=== PATIENT | male | born 1995 | race Hispanic/Latino ===

== ENCOUNTER 2020-03-01 13:05 | Inpatient (IN) | payer OTHER, MEDICARE ==
--- NOTE | 2020-03-01 16:54 | Emergency Department Report ---
- General Chief Complaint: Nausea/Vomiting/Diarrhea Stated Complaint: POSSIBLE COVID Time Seen by Provider: 03/01/20 16:34 Source: patient Mode of arrival: Ambulatory Limitations: No Limitations - History of Present Illness Initial Comments: 25-year-old male, history of asthma, depression, hyperlipidemia, intellectual delay, presents to ED with symptoms of COVID-19. Patient is currently a patient at [facility] on a voluntary admission. Patient tested positive for COVID-19 at that facility on yesterday. He reports having fever, cough, shortness of breath, body aches, diarrhea. He denies loss of smell or taste. MD Complaint: fever, cough -: days(s) (3) Severity: moderate Consistency: constant Improves With: nothing Worsens With: nothing Associated Symptoms: fever, myalgias, sore throat, cough, shortness of breath, diarrhea. denies: abdominal pain, nausea, vomiting - Related Data Allergies Allergy/AdvReac Type Severity Reaction Status Date / Time latex Allergy Unknown Verified 03/01/20 15:53 ceftriaxone [From Rocephin] AdvReac Unknown Verified 03/01/20 18:01 soy AdvReac Unknown Verified 03/01/20 15:53 ED Review of Systems ROS: Stated complaint: POSSIBLE COVID Other details as noted in HPI Comment: All other systems reviewed and negative Constitutional: fever ENT: throat pain Respiratory: cough, shortness of breath Gastrointestinal: diarrhea. denies: nausea, vomiting Musculoskeletal: myalgia ED Past Medical Hx - Past Medical History Hx Diabetes: Yes - Surgical History Past Surgical History?: No - Social History Smoking Status: Never Smoker Substance Use Type: None ED Physical Exam - General Limitations: No Limitations General appearance: alert, in no apparent distress - Head Head exam: Present: atraumatic, normocephalic - Eye Eye exam: Present: normal appearance, EOMI - ENT ENT exam: Present: mucous membranes moist - Neck Neck exam: Present: normal inspection - Respiratory Respiratory exam: Present: normal lung sounds bilaterally. Absent: respiratory distress - Cardiovascular Cardiovascular Exam: Present: regular rate, normal rhythm - GI/Abdominal GI/Abdominal exam: Present: soft. Absent: distended, tenderness - Extremities Exam Extremities exam: Present: normal inspection - Back Exam Back exam: Present: normal inspection - Neurological Exam Neurological exam: Present: alert, oriented X3 - Psychiatric Psychiatric exam: Present: normal affect, normal mood - Skin Skin exam: Present: warm, dry, intact, normal color ED Course Vital Signs 03/01/20 03/01/20 03/01/20 16:02 17:48 19:04 Temperature 99.0 F Pulse Rate 92 H 104 H Pulse Rate [ Bilateral] Respiratory 18 18 Rate Respiratory Rate [Bilateral ] Blood Pressure Blood Pressure 159/69 [Left] O2 Sat by Pulse 96 90 92 Oximetry 03/01/20 03/01/20 03/01/20 21:13 21:39 22:00 Temperature Pulse Rate 80 Pulse Rate [ 80 Bilateral] Respiratory 20 Rate Respiratory 22 Rate [Bilateral ] Blood Pressure 129/56 Blood Pressure [Left] O2 Sat by Pulse 90 96 Oximetry 03/01/20 03/01/20 03/01/20 22:11 22:21 22:31 Temperature Pulse Rate 94 H 89 88 Pulse Rate [ Bilateral] Respiratory 16 12 14 Rate Respiratory Rate [Bilateral ] Blood Pressure 129/56 129/56 129/56 Blood Pressure [Left] O2 Sat by Pulse 96 95 95 Oximetry 03/01/20 03/01/20 03/01/20 22:41 22:51 23:19 Temperature 98.3 F Pulse Rate 88 81 85 Pulse Rate [ Bilateral] Respiratory 12 20 17 Rate Respiratory Rate [Bilateral ] Blood Pressure 129/56 129/56 150/65 Blood Pressure [Left] O2 Sat by Pulse 94 95 93 Oximetry - Reevaluation(s) Reevaluation #1: 03/01/20 17:45 Ambulation, O2 sats dropped to 90% on room air. ED Medical Decision Making - Lab Data Result diagrams: 03/01/20 17:20 03/01/20 17:20 - Radiology Data Radiology results: report reviewed, image reviewed - Medical Decision Making 25-year-old male, recently tested positive for COVID-19, presents to ED with difficulty breathing. O2 sats 90% on room air. Chest x-ray shows right upper lobe opacity. Blood cultures drawn, patient given Levaquin and Decadron. He will be admitted by hospitalist, Dr. Rodriguez, for further management. - Differential Diagnosis COVID-19, pneumonia Critical care attestation.: If time is entered above; I have spent that time in minutes in the direct care of this critically ill patient, excluding procedure time. ED Disposition Clinical Impression: COVID-19, Pneumonia, Hypoxia Disposition: DC-09 OP ADMIT IP TO THIS HOSP Is pt being admited?: Yes Condition: Stable Time of Disposition: 19:03
--- NOTE | 2020-03-01 17:25 | XRay Report ---
CHEST 1 VIEW 03/01/2020 4:17 PM INDICATION / CLINICAL INFORMATION: cough, sob. COMPARISON: None available. FINDINGS: SUPPORT DEVICES: None. HEART / MEDIASTINUM: No significant abnormality. LUNGS / PLEURA: There is focal parenchymal opacity in the right upper lung. No pneumothorax. ADDITIONAL FINDINGS: No significant additional findings. IMPRESSION: 1. Focal right upper lung parenchymal opacity likely reflecting developing pneumonia. Signer Name: Titi Bennett MD Signed: 03/01/2020 5:21 PM Workstation Name: [id number]
[2020-03-01] MEDS ORDERED: cefTRIAXone/NS 1 GM/50 ML 1 GM/50 ML BAG IV ONE (17:45)
[2020-03-01] MEDS ORDERED: AZITHROMYCIN 250 MG TAB PO ONE (17:45)
[2020-03-01] MEDS ORDERED: DEXAMETHASONE 4 MG TAB PO ONE (17:46)
[2020-03-01 17:48] LABS: Basophils % (Auto) 0.7 % (0.0-1.8); Eosinophils # (Auto) 0.1 K/mm3 (0.0-0.4); Eosinophils % (Auto) 1.9 % (0.0-4.3); Hematocrit 34.3 % (35.5-45.6); Hemoglobin 11.1 gm/dl (11.8-15.2); Lymphocytes % (Auto) 37.8 % (13.4-35.0); Mean Corpuscular HGB Conc 32 % (32-34); Mean Corpuscular Volume 80 fl (84-94); Monocytes # (Auto) 0.2 K/mm3 (0.0-0.8); Monocytes % (Auto) 7.3 % (0.0-7.3); Platelet Count 218 K/mm3 (140-440); Red Blood Count 4.29 M/mm3 (3.65-5.03); Red Cell Distribution Width 16.9 % (13.2-15.2)
[2020-03-01] MEDS ORDERED: levoFLOXacin 750 MG TAB PO ONE (17:53)
[2020-03-01 17:59] LABS: INR 0.92 (0.87-1.13)
[2020-03-01 18:00] LABS: Partial Thromboplastin Time 30.3 Sec. (24.2-36.6)
[2020-03-01 18:04] LABS: Alanine Aminotransferase 57 units/L (7-56); Albumin 4.2 g/dL (3.9-5); BUN/Creatinine Ratio 14; Blood Urea Nitrogen 11 mg/dL (9-20); Calcium 8.8 mg/dL (8.4-10.2); Hemolysis Index 1
[2020-03-01 18:13] LABS: Bilirubin,Direct < 0.2 mg/dL (0-0.2)
--- NOTE | 2020-03-01 19:13 | History and Physical Report ---
History of Present Illness Chief complaint: I feel sick History of present illness: 25 YO Male who is currently an inpatient at [facility] with Depression, Asthma, HLD, Developmental Delay presents to ED for evaluation. Patient reports "feeling 6" over the past 2 days. Patient states that he has experienced fever, dry cough, shortness of breath, body aches, malaise, nausea, multiple loose stools. Patient underwent a coronavirus test on yesterday and was found to be COVID-19 positive. Patient has experienced persistent symptoms over the same timeframe. EMS was notified and upon arrival the patient was found to be in distress and subsequently transported to [facility] for further care and evaluation of the aforementioned symptoms. The patient was seen and evaluated in the emergency department. All lab and imaging studies reviewed. The patient was found to have a pulse oximetry of 87% with exertion which is consistent with acute hypoxemic respiratory failure. The patient underwent chest x-ray and was found to have pneumonia. The patient was admitted to medical floor and initiated on pneumonia protocol as well as coronavirus protocol. Infectious disease service consulted. Patient denies chills, chest pain, palpitation, skin rash or recent ill contacts. No prior admission for review. No medication listed at time of admission for reconciliation. Past History Past Medical History: hyperlipidemia, other (See HPI) Past Surgical History: No surgical history Social history: single. denies: smoking, alcohol abuse, prescription drug abuse Family history: hypertension Medications and Allergies Allergies Allergy/AdvReac Type Severity Reaction Status Date / Time latex Allergy Unknown Verified 03/01/20 15:53 ceftriaxone [From Rocephin] AdvReac Unknown Verified 03/01/20 18:01 soy AdvReac Unknown Verified 03/01/20 15:53 Review of Systems Constitutional: fever, anorexia, fatigue, weakness, malaise, no weight loss Ears, nose, mouth and throat: no ear pain, no ear discharge, no tinnitis, no decreased hearing, no nose pain Cardiovascular: no orthopnea, no palpitations, no rapid/irregular heart beat, no edema, no syncope Respiratory: cough, shortness of breath, no cough with sputum, no excessive sputum Gastrointestinal: nausea, diarrhea, no abdominal pain, no vomiting, no const ipation Genitourinary Male: no hematuria, no flank pain, no discharge, no urinary frequency, no urinary hesitancy Rectal: no pain, no incontinence, no bleeding Musculoskeletal: no neck stiffness, no neck pain, no shooting arm pain, no arm numbness/tingling, no low back pain Integumentary: no rash, no pruritis, no redness, no sores, no wounds Neurological: no transient paralysis, no paralysis, no weakness, no parathesias, no numbness, no tingling, no seizures Psychiatric: no anxiety, no memory loss, no change in sleep habits, no sleep disturbances, no insomnia, no hypersomnia, no change in libido Endocrine: no cold intolerance, no heat intolerance, no polyphagia, no excessive thirst, no polydipsia, no nocturia, no excessive sweating Hematologic/Lymphatic: no easy bruising, no easy bleeding, no lymphadenopathy, no lymphedema Allergic/Immunologic: no urticaria, no allergic rhinitis, no persistent infections, no anaphylaxis Exam - Constitutional Vitals: Temp Pulse Resp BP Pulse Ox 99.0 F 104 H 18 159/69 92 03/01/20 16:02 03/01/20 17:48 03/01/20 19:04 03/01/20 16:02 03/01/20 19:04 General appearance: Present: mild distress - EENT Eyes: Present: PERRL ENT: hearing intact, clear oral mucosa - Neck Neck: Present: supple, normal ROM - Respiratory Respiratory effort: labored, accessory muscle use Respiratory: bilateral: diminished, rhonchi - Cardiovascular Heart Sounds: Present: S1 & S2. Absent: rub, click - Extremities Extremities: pulses symmetrical, No edema Peripheral Pulses: within normal limits - Abdominal General gastrointestinal: Present: soft, non-tender, non-distended, normal bowel sounds Male genitourinary: Present: normal - Integumentary Integumentary: Present: clear, warm, dry - Musculoskeletal Musculoskeletal: gait normal, strength equal bilaterally - Psychiatric Psychiatric: cooperative - Neurologic Neurologic: CNII-XII intact, moves all extremities Results - Labs CBC & Chem 7: 03/01/20 17:20 03/01/20 17:20 Labs: Abnormal lab results 03/01/20 03/01/20 03/01/20 Range/Units 17:20 17:20 17:20 WBC 2.6 L (4.5-11.0) K/mm3 Hgb 11.1 L (11.8-15.2) gm/dl Hct 34.3 L (35.5-45.6) % MCV 80 L (84-94) fl MCH 26 L (28-32) pg RDW 16.9 H (13.2-15.2) % Lymph % (Auto) 37.8 H (13.4-35.0) % Lymph # (Auto) 1.0 L (1.2-5.4) K/mm3 Seg Neutrophils # 1.4 L (1.8-7.7) K/mm3 D-Dimer 236.88 H (0-234) ng/mlDDU AST 47 H (5-40) units/L ALT 57 H (7-56) units/L Lactate Dehydrogenase (91-180) units/L 03/01/20 03/01/20 Range/Units 17:20 17:20 WBC (4.5-11.0) K/mm3 Hgb (11.8-15.2) gm/dl Hct (35.5-45.6) % MCV (84-94) fl MCH (28-32) pg RDW (13.2-15.2) % Lymph % (Auto) (13.4-35.0) % Lymph # (Auto) (1.2-5.4) K/mm3 Seg Neutrophils # (1.8-7.7) K/mm3 D-Dimer 274.02 H (0-234) ng/mlDDU AST (5-40) units/L ALT (7-56) units/L Lactate Dehydrogenase 202 H (91-180) units/L Assessment and Plan - Patient Problems (1) Acute hypoxemic respiratory failure Current Visit: Yes Status: Acute Plan to address problem: Chest X ray, supplemental oxygen, nebulizer therapy, NIPPV as clinically indicated, (2) Coronavirus infection Current Visit: Yes Status: Acute Plan to address problem: Covid 19 Protocol: Coronavirus PCR, supplemental oxygen, pulse oximetry, noninvasive positive pressure ventilation as clinically indicated, IV antibiotic therapy, IV steroid therapy, prophylactic anticoagulation. Prone listening while in bed (3) Pneumonia Current Visit: Yes Status: Acute Plan to address problem: Pneumonia Protocol: CBC, BMP, Supplemental oxygen, nebulizer therapy, pulse oximetry, IV antibiotic therapy, steroid therapy, (4) Depression Current Visit: Yes Status: Acute Qualifiers: Major depression episode severity: unspecified Plan to address problem: Mental health consult placed, continue medical management. (5) Cognitive developmental delay Current Visit: Yes Status: Acute Plan to address problem: Supportive care, chronic. (6) DVT prophylaxis Current Visit: Yes Status: Acute Plan to address problem: SCD to bilateral lower extremities while in bed, prophylactic anticoagulation
[2020-03-01] MEDS ORDERED: ALBUTEROL 2.5 MG/3 ML NEBU IH PRN (19:17)
[2020-03-01] MEDS ORDERED: ONDANSETRON 4 MG/2 ML INJ IV PRN (19:17)
[2020-03-01] MEDS ORDERED: ACETAMINOPHEN 325 MG TAB PO PRN (19:17)
[2020-03-01] MEDS: AZITHROMYCIN 500 MG in SODIUM CHLORIDE 0.9% 250ML 250 ML IV SCH (20:40)
[2020-03-01] MEDS: HEPARIN 5,000 UNIT/1 ML VIAL SUB-Q SCH (21:43)
[2020-03-01] MEDS: methylPREDNISolone Sod Succinate 40 MG/1 ML INJ IV SCH (21:50)
[2020-03-01] MEDS: FAMOTIDINE 10 MG TAB PO SCH (21:51)
[2020-03-02] MEDS: FAMOTIDINE 10 MG TAB PO SCH ×3 (00:36→21:01)
[2020-03-02] MEDS: methylPREDNISolone Sod Succinate 40 MG/1 ML INJ IV SCH ×3 (06:11→21:03)
[2020-03-02 06:20] LABS: Hematocrit 35.2 % (35.5-45.6); Hemoglobin 11.4 gm/dl (11.8-15.2); Mean Corpuscular HGB Conc 33 % (32-34); Mean Corpuscular Volume 79 fl (84-94); Platelet Count 259 K/mm3 (140-440); Red Blood Count 4.44 M/mm3 (3.65-5.03); Red Cell Distribution Width 17.1 % (13.2-15.2)
[2020-03-02 06:39] LABS: Blood Urea Nitrogen 11 mg/dL (9-20); Calcium 9.1 mg/dL (8.4-10.2); Hemolysis Index 0
[2020-03-02 06:42] LABS: BUN/Creatinine Ratio 18
[2020-03-02 07:47] LABS: Total Cells Counted 100
[2020-03-02 07:48] LABS: Hypochromasia 1+; Ovalocytes Few; Platelet Estimate Consistent w Auto
[2020-03-02] MEDS ORDERED: FLU VACC QUAD 2020-2021 (6 months +)/PF 60 0.5 ML SYRINGE IM ONE (12:00)
[2020-03-02] MEDS: HEPARIN 5,000 UNIT/1 ML VIAL SUB-Q SCH ×2 (12:56→21:01)
--- NOTE | 2020-03-02 14:53 | Consultation ---
History of Present Illness - Reason for Consult Consult date: 03/02/20 COVID-19 PUI Requesting physician: TANK JUAREZ - History of Present Illness The patient is a 25-year-old male with asthma, depression, hyperlipidemia, mental developmental delay was admitted to the hospital with symptoms of fever, cough, shortness of breath along with diarrhea. Upon additional evaluation, he was noted to be afebrile, was borderline hypoxic requiring supplemental oxygen. Infectious diseases was consulted to evaluate for COVID-19. Labs showed leukopenia, mild transaminitis. Procalcitonin is normal. Review of Systems: reviewed in the chart, unable to obtain, minimize risk of transmission Past History Past Medical History: hyperlipidemia, other (See HPI) Past Surgical History: No surgical history Social history: single. denies: smoking, alcohol abuse, prescription drug abuse Family history: hypertension Medications and Allergies Allergies Allergy/AdvReac Type Severity Reaction Status Date / Time latex Allergy Unknown Verified 03/01/20 15:53 ceftriaxone [From Rocephin] AdvReac Unknown Verified 03/01/20 18:01 soy AdvReac Unknown Verified 03/01/20 15:53 Active Meds: Active Medications Acetaminophen (Acetaminophen 325 Mg Tab) 650 mg PO Q4H PRN PRN Reason: Pain MILD(1-3)/Fever >100.5/RAYGOZA Albuterol (Albuterol 2.5 Mg/3 Ml Nebu) 2.5 mg IH Q4HRT PRN PRN Reason: Shortness Of Breath Last Admin: 03/01/20 21:38 Dose: 2.5 mg Documented by: Famotidine (Famotidine 10 Mg Tab) 10 mg PO BID [facility] Last Admin: 03/02/20 12:56 Dose: 10 mg Documented by: Heparin Sodium (Porcine) (Heparin 5,000 Unit/1 Ml Vial) 5,000 unit SUB-Q Q12HR [facility] Last Admin: 03/02/20 12:56 Dose: 5,000 unit Documented by: Azithromycin 500 mg/ Sodium (Chloride) 250 mls @ 250 mls/hr IV Q24H [facility]; Protocol Last Admin: 03/01/20 20:40 Dose: 250 mls/hr Documented by: Methylprednisolone Sodium Succinate (Methylprednisolone Sod Succinate 40 Mg/1 Ml Inj) 40 mg IV Q8H [facility] Last Admin: 03/02/20 06:11 Dose: 40 mg Documented by: Ondansetron HCl (Ondansetron 4 Mg/2 Ml Inj) 4 mg IV Q8H PRN PRN Reason: Nausea And Vomiting Sodium Chloride (Sodium Chloride 0.9% 10 Ml Flush Syringe) 10 ml IV BID [facility] Last Admin: 03/01/20 21:51 Dose: 10 ml Documented by: Sodium Chloride (Sodium Chloride 0.9% 10 Ml Flush Syringe) 10 ml IV PRN PRN PRN Reason: LINE FLUSH Physical Examination - Physical Exam Narrative exam: Physical Exam (reviewed in chart to minimize risk of transmission) Constitutional: deferred Head, Ears, Nose: deferred Eyes: deferred Neck: deferred Oral: deferred Cardiovascular: deferred Respiratory: deferred GI: deferred Musculoskeletal: deferred Skin: deferred Hem/Lymphatic: deferred Psych: deferred Neurological: deferred - Constitutional Vitals: Vital Signs Temp Pulse Resp BP Pulse Ox 98.2 F 68 22 122/51 94 03/02/20 11:12 03/02/20 11:12 03/02/20 11:12 03/02/20 11:12 03/02/20 11:12 Temperature -Last 24 Hours Temperature 98.2 F Temperature 97.9 F Temperature 98.3 F Temperature 99.0 F Results - Labs CBC & Chem 7: 03/02/20 05:31 03/02/20 05:31 Labs: Abnormal lab results 03/01/20 03/01/20 03/01/20 Range/Units 17:20 17:20 17:20 WBC 2.6 L (4.5-11.0) K/mm3 Hgb 11.1 L (11.8-15.2) gm/dl Hct 34.3 L (35.5-45.6) % MCV 80 L (84-94) fl MCH 26 L (28-32) pg RDW 16.9 H (13.2-15.2) % Lymph % (Auto) 37.8 H (13.4-35.0) % Lymph # (Auto) 1.0 L (1.2-5.4) K/mm3 Seg Neuts % (Manual) (40.0-70.0) % Seg Neutrophils # 1.4 L (1.8-7.7) K/mm3 Seg Neutrophils # Man (1.8-7.7) K/mm3 Lymphocytes # (Manual) (1.2-5.4) K/mm3 D-Dimer 236.88 H (0-234) ng/mlDDU Creatinine (0.8-1.3) mg/dL Glucose (75-100) mg/dL AST 47 H (5-40) units/L ALT 57 H (7-56) units/L Lactate Dehydrogenase (91-180) units/L 03/01/20 03/01/20 03/02/20 Range/Units 17:20 17:20 05:31 WBC 1.7 L* (4.5-11.0) K/mm3 Hgb 11.4 L (11.8-15.2) gm/dl Hct 35.2 L (35.5-45.6) % MCV 79 L (84-94) fl MCH 26 L (28-32) pg RDW 17.1 H (13.2-15.2) % Lymph % (Auto) (13.4-35.0) % Lymph # (Auto) (1.2-5.4) K/mm3 Seg Neuts % (Manual) 74.0 H (40.0-70.0) % Seg Neutrophils # (1.8-7.7) K/mm3 Seg Neutrophils # Man 1.3 L (1.8-7.7) K/mm3 Lymphocytes # (Manual) 0.4 L (1.2-5.4) K/mm3 D-Dimer 274.02 H (0-234) ng/mlDDU Creatinine (0.8-1.3) mg/dL Glucose (75-100) mg/dL AST (5-40) units/L ALT (7-56) units/L Lactate Dehydrogenase 202 H (91-180) units/L 03/02/20 Range/Units 05:31 WBC (4.5-11.0) K/mm3 Hgb (11.8-15.2) gm/dl Hct (35.5-45.6) % MCV (84-94) fl MCH (28-32) pg RDW (13.2-15.2) % Lymph % (Auto) (13.4-35.0) % Lymph # (Auto) (1.2-5.4) K/mm3 Seg Neuts % (Manual) (40.0-70.0) % Seg Neutrophils # (1.8-7.7) K/mm3 Seg Neutrophils # Man (1.8-7.7) K/mm3 Lymphocytes # (Manual) (1.2-5.4) K/mm3 D-Dimer (0-234) ng/mlDDU Creatinine 0.6 L (0.8-1.3) mg/dL Glucose 134 H (75-100) mg/dL AST (5-40) units/L ALT (7-56) units/L Lactate Dehydrogenase (91-180) units/L - Imaging and Cardiology Chest x-ray: report reviewed, image reviewed (R pneumonia) Assessment and Plan Cultures: SARS CoV2 PCR: Pending A/P: 25-year-old male with asthma, depression, hyperlipidemia, mental developmental delay was admitted to the hospital with symptoms of fever, cough, shortness of breath along with diarrhea: #Right-sided pneumonia: seen on CXR. Procalcitonin is low. #Acute/mild hypoxia #Asthma exacerbation: On steroids #Leukopenia: Possibly from COVID-19. Monitor Recs: On steroids for asthma exacerbation Follow-up COVID-19 PCR, if positive, would start on IV remdesivir Procalcitonin is low, ceftriaxone discontinued Monitor WBC Duy Pretty MD, FACP [facility] O: [phone] F: [phone]
[2020-03-02] MEDS: AZITHROMYCIN 500 MG in SODIUM CHLORIDE 0.9% 250ML 250 ML IV SCH (20:38)
[2020-03-03] MEDS: methylPREDNISolone Sod Succinate 40 MG/1 ML INJ IV SCH ×3 (06:04→21:44)
--- NOTE | 2020-03-03 08:34 | Progress Note ---
Assessment and Plan - Patient Problems (1) Acute hypoxemic respiratory failure Current Visit: Yes Status: Acute Plan to address problem: Cont Oxygen supplement (2) Pneumonia due to COVID-19 virus Current Visit: Yes Status: Acute Plan to address problem: ID consult appreciated coronavirus PCR positive Per ID start remdesivir if positive (3) Leukopenia Current Visit: Yes Status: Acute Plan to address problem: Secondary to Covid (4) Transaminitis Current Visit: Yes Status: Acute Plan to address problem: Secondary to forward (5) DVT prophylaxis Current Visit: Yes Status: Acute Plan to address problem: On Lovenox and GI prophylaxis Subjective Date of service: 03/02/20 Principal diagnosis: Covid Pneumonia Interval history: 25 YO Male who is currently an inpatient at [facility] with Depression, Asthma, HLD, Developmental Delay presents to ED for evaluation. Patient reports "feeling 6" over the past 2 days. Patient states that he has experienced fever, dry cough, shortness of breath, body aches, malaise, nausea, multiple loose stools. Patient underwent a coronavirus test on yesterday and was found to be COVID-19 positive. Patient has experienced persistent symptoms over the same timeframe. EMS was notified and upon arrival the patient was found to be in distress and subsequently transported to [facility] for further care and evaluation of the aforementioned symptoms. The patient was seen and evaluated in the emergency department. All lab and imaging studies reviewed. The patient was found to have a pulse oximetry of 87% with exertion which is consistent with acute hypoxemic respiratory failure. The patient underwent chest x-ray and was found to have pneumonia. The patient was admitted to medical floor and initiated on pneumonia protocol as well as coronavirus protocol. Infectious disease service consulted. Patient denies chills, chest pain, palpitation, skin rash or recent ill contacts. No prior admission for review. No medication listed at time of admission for reconciliation. 03/02/20 Doing well On 3 liters NC o2 Smith virys positive Objective - Constitutional Vitals: Vital Signs - 12hr 03/02/20 03/02/20 03/03/20 21:29 22:52 05:54 Temperature 97.0 F L 97.8 F Pulse Rate 58 L 52 L Respiratory 16 16 Rate Blood Pressure 90/28 118/42 O2 Sat by Pulse 98 91 95 Oximetry General appearance: Present: no acute distress, well-nourished - EENT Eyes: PERRL, EOM intact ENT: hearing intact, clear oral mucosa Ears: bilateral: normal - Neck Neck: supple, normal ROM - Respiratory Respiratory effort: normal Respiratory: bilateral: CTA, rhonchi - Breasts Breasts: normal - Cardiovascular Heart rate: 78 Rhythm: regular Heart Sounds: Present: S1 & S2. Absent: gallop, rub Extremities: pulses intact, No edema, normal color, Full ROM - Gastrointestinal General gastrointestinal: Present: soft, non-tender, non-distended, normal bowel sounds - Genitourinary Male genitourinary: normal - Integumentary Integumentary: clear, warm, dry - Musculoskeletal Musculoskeletal: 1, strength equal bilaterally - Neurologic Neurologic: moves all extremities - Psychiatric Psychiatric: memory intact, appropriate mood/affect, intact judgment & insight - Labs CBC & Chem 7: 03/02/20 05:31 03/02/20 05:31 Labs: Abnormal lab results 03/02/20 Range/Units 10:00 Coronavirus (PCR) Positive A (Negative)
[2020-03-03] MEDS ORDERED: REMDESIVIR 100 MG VIAL IV ONE (08:42)
[2020-03-03] MEDS ORDERED: REMDESIVIR 200 MG in SODIUM CHLORIDE 0.9% 250ML 250 ML IV ONE (08:42)
[2020-03-03] MEDS ORDERED: SODIUM CHLORIDE 0.9% 50 ML IVPB IV ONE (10:00)
[2020-03-03] MEDS: FAMOTIDINE 10 MG TAB PO SCH ×2 (10:32→21:44)
[2020-03-03] MEDS: HEPARIN 5,000 UNIT/1 ML VIAL SUB-Q SCH ×2 (10:33→21:44)
--- NOTE | 2020-03-03 13:30 | Progress Note ---
Assessment and Plan Assessment and plan: 25 YO Male who is currently an inpatient at [facility] with Depression, Asthma, HLD, Developmental Delay presents to ED for evaluation. Patient reports "feeling 6" over the past 2 days. Patient states that he has experienced fever, dry cough, shortness of breath, body aches, malaise, nausea, multiple loose stools. Patient underwent a coronavirus test on yesterday and was found to be COVID-19 positive. Patient has experienced persistent symptoms over the same timeframe. EMS was notified and upon arrival the patient was found to be in distress and subsequently transported to [facility] for further care and evaluation of the aforementioned symptoms. The patient was seen and evaluated in the [facility] department. All lab and imaging studies reviewed. The patient was found to have a pulse oximetry of 87% with exertion which is consistent with acute hypoxemic respiratory failure. The patient underwent chest x-ray and was found to have pneumonia. The patient was admitted to medical floor and initiated on pneumonia protocol as well as coronavirus protocol. Infectious disease service consulted. Patient denies chills, chest pain, palpitation, skin rash or recent ill contacts. No prior admission for review. No medication listed at time of admission for reconciliation. 03/02/20 Doing well On 3 liters [place] o2 Smith virys positive 03/03: Continue oxygen therapy at this time. We will add some vitamins supplementation. A dose of Lasix today. Patient noted to have leukopenia we will continue to monitor closely. Remdesivir was started. Patient requesting for his phone from [facility] and staff to help locate. (1) Acute hypoxemic respiratory failure Current Visit: Yes Status: Acute Plan to address problem: Cont Oxygen supplement (2) Pneumonia due to COVID-19 virus Current Visit: Yes Status: Acute Plan to address problem: ID consult appreciated coronavirus PCR positive Per ID start remdesivir if positive (3) Leukopenia Current Visit: Yes Status: Acute Plan to address problem: Secondary to Covid (4) Transaminitis Current Visit: Yes Status: Acute Plan to address problem: Secondary to forward (5) DVT prophylaxis Current Visit: Yes Status: Acute Plan to address problem: On Lovenox and GI prophylaxis History Interval history: Patient seen and examined resting with mild distress secondary to Covid pneumonia Hospitalist Physical - Physical exam Narrative exam: VITAL SIGNS: Reviewed. GENERAL: The patient appears normally developed, Vital signs as documented. HEAD: No signs of head trauma. EYES: Pupils are equal. Extraocular motions intact. EARS: Hearing grossly intact. MOUTH: Oropharynx is normal. NECK: No adenopathy, no JVD. CHEST: Chest with diminished breath sounds bilaterally. No wheezes, rales, or rhonchi. CARDIAC: Regular rate and rhythm. S1 and S2, without murmurs, gallops, or rubs. VASCULAR: No Edema. Peripheral pulses normal and equal in all extremities. ABDOMEN: Soft, non tender and non distended. No rebound or guarding, and no masses palpated. Bowel Sounds normal. MUSCULOSKELETAL: Good range of motion of all major joints. Extremities without clubbing, cyanosis or edema. NEUROLOGIC EXAM: Alert and oriented x 3 No focal sensory or strength deficit s. Speech normal. Follows commands. PSYCHIATRIC: Mood normal. SKIN: detail exam as documented in skin assessment - Constitutional Vitals: Temp Pulse Resp BP Pulse Ox 97.8 F 57 L 20 111/56 93 03/03/20 11:08 03/03/20 11:08 03/03/20 11:08 03/03/20 11:08 03/03/20 11:08 General appearance: Present: no acute distress, well-nourished Results - Labs CBC & Chem 7: 03/02/20 05:31 03/02/20 05:31 Labs: Laboratory Last Values WBC 1.7 K/mm3 (4.5-11.0) L* 03/02/20 05:31 RBC 4.44 M/mm3 (3.65-5.03) 03/02/20 05:31 Hgb 11.4 gm/dl (11.8-15.2) L 03/02/20 05:31 Hct 35.2 % (35.5-45.6) L 03/02/20 05:31 MCV 79 fl (84-94) L 03/02/20 05:31 MCH 26 pg (28-32) L 03/02/20 05:31 MCHC 33 % (32-34) 03/02/20 05:31 RDW 17.1 % (13.2-15.2) H 03/02/20 05:31 Plt Count 259 K/mm3 (140-440) 03/02/20 05:31 Lymph % (Auto) 37.8 % (13.4-35.0) H 03/01/20 17:20 Martin % (Auto) 7.3 % (0.0-7.3) 03/01/20 17:20 Eos % (Auto) 1.9 % (0.0-4.3) 03/01/20 17:20 Baso % (Auto) 0.7 % (0.0-1.8) 03/01/20 17:20 Lymph # (Auto) 1.0 K/mm3 (1.2-5.4) L 03/01/20 17:20 Martin # (Auto) 0.2 K/mm3 (0.0-0.8) 03/01/20 17:20 Eos # (Auto) 0.1 K/mm3 (0.0-0.4) 03/01/20 17:20 Baso # (Auto) 0.0 K/mm3 (0.0-0.1) 03/01/20 17:20 Add Manual Diff Complete 03/02/20 05:31 Total Counted 100 03/02/20 05:31 Seg Neutrophils % 52.3 % (40.0-70.0) 03/01/20 17:20 Seg Neuts % (Manual) 74.0 % (40.0-70.0) H 03/02/20 05:31 Lymphocytes % (Manual) 23.0 % (13.4-35.0) 03/02/20 05:31 Monocytes % (Manual) 3.0 % (0.0-7.3) 03/02/20 05:31 Nucleated RBC % Not Reportable 03/02/20 05:31 Seg Neutrophils # 1.4 K/mm3 (1.8-7.7) L 03/01/20 17:20 Seg Neutrophils # Man 1.3 K/mm3 (1.8-7.7) L 03/02/20 05:31 Band Neutrophils # 0.0 K/mm3 03/02/20 05:31 Lymphocytes # (Manual) 0.4 K/mm3 (1.2-5.4) L 03/02/20 05:31 Abs React Lymphs (Man) 0.0 K/mm3 03/02/20 05:31 Monocytes # (Manual) 0.1 K/mm3 (0.0-0.8) 03/02/20 05:31 Eosinophils # (Manual) 0.0 K/mm3 (0.0-0.4) 03/02/20 05:31 Basophils # (Manual) 0.0 K/mm3 (0.0-0.1) 03/02/20 05:31 Metamyelocytes # 0.0 K/mm3 03/02/20 05:31 Myelocytes # 0.0 K/mm3 03/02/20 05:31 Promyelocytes # 0.0 K/mm3 03/02/20 05:31 Blast Cells # 0.0 K/mm3 03/02/20 05:31 WBC Morphology Not Reportable 03/02/20 05:31 Hypersegmented Neuts Not Reportable 03/02/20 05:31 Hyposegmented Neuts Not Reportable 03/02/20 05:31 Hypogranular Neuts Not Reportable 03/02/20 05:31 Smudge Cells Not Reportable 03/02/20 05:31 Toxic Granulation Not Reportable 03/02/20 05:31 Toxic Vacuolation Not Reportable 03/02/20 05:31 Dohle Bodies Not Reportable 03/02/20 05:31 Pelger-Huet Anomaly Not Reportable 03/02/20 05:31 Gerardo Rods Not Reportable 03/02/20 05:31 Platelet Estimate Consistent w auto 03/02/20 05:31 Clumped Platelets Not Reportable 03/02/20 05:31 Plt Clumps, EDTA Not Reportable 03/02/20 05:31 Large Platelets Not Reportable 03/02/20 05:31 Giant Platelets Not Reportable 03/02/20 05:31 Platelet Satelliting Not Reportable 03/02/20 05:31 Plt Morphology Comment Not Reportable 03/02/20 05:31 RBC Morphology Not Reportable 03/02/20 05:31 Dimorphic RBCs Not Reportable 03/02/20 05:31 Polychromasia Not Reportable 03/02/20 05:31 Hypochromasia 1+ 03/02/20 05:31 Poikilocytosis Not Reportable 03/02/20 05:31 Anisocytosis Not Reportable 03/02/20 05:31 Microcytosis Not Reportable 03/02/20 05:31 Macrocytosis Not Reportable 03/02/20 05:31 Spherocytes Not Reportable 03/02/20 05:31 Pappenheimer Bodies Not Reportable 03/02/20 05:31 Sickle Cells Not Reportable 03/02/20 05:31 Target Cells Not Reportable 03/02/20 05:31 Tear Drop Cells Not Reportable 03/02/20 05:31 Ovalocytes Few 03/02/20 05:31 Helmet Cells Not Reportable 03/02/20 05:31 [place] Bodies Not Reportable 03/02/20 05:31 [place] Rings Not Reportable 03/02/20 05:31 [place] Cells Not Reportable 03/02/20 05:31 Bite Cells Not Reportable 03/02/20 05:31 Crenated Cell Not Reportable 03/02/20 05:31 Elliptocytes Not Reportable 03/02/20 05:31 Acanthocytes (Spur) Not Reportable 03/02/20 05:31 Rouleaux Not Reportable 03/02/20 05:31 Hemoglobin C Crystals Not Reportable 03/02/20 05:31 Schistocytes Not Reportable 03/02/20 05:31 Malaria parasites Not Reportable 03/02/20 05:31 Julio Bodies Not Reportable 03/02/20 05:31 Hem Pathologist Commnt No 03/02/20 05:31 PT 12.2 Sec. (12.2-14.9) 03/01/20 17:20 INR 0.92 (0.87-1.13) 03/01/20 17:20 APTT 30.3 Sec. (24.2-36.6) 03/01/20 17:20 D-Dimer 236.88 ng/mlDDU (0-234) H 03/01/20 17:20 D-Dimer 274.02 ng/mlDDU (0-234) H 03/01/20 17:20 Sodium 140 mmol/L (137-145) 03/02/20 05:31 Potassium 4.2 mmol/L (3.6-5.0) 03/02/20 05:31 Chloride 105.4 mmol/L (98-107) 03/02/20 05:31 Carbon Dioxide 24 mmol/L (22-30) 03/02/20 05:31 Anion Gap 15 mmol/L 03/02/20 05:31 BUN 11 mg/dL (9-20) 03/02/20 05:31 Creatinine 0.6 mg/dL (0.8-1.3) L 03/02/20 05:31 Estimated GFR > 60 ml/min 03/02/20 05:31 BUN/Creatinine Ratio 18 % 03/02/20 05:31 Glucose 134 mg/dL (75-100) H 03/02/20 05:31 Calcium 9.1 mg/dL (8.4-10.2) 03/02/20 05:31 Ferritin 42.8 ng/mL (30.0-300.0) 03/01/20 17:20 Total Bilirubin 0.20 mg/dL (0.1-1.2) 03/01/20 17:20 Direct Bilirubin < 0.2 mg/dL (0-0.2) 03/01/20 17:20 AST 47 units/L (5-40) H 03/01/20 17:20 ALT 57 units/L (7-56) H 03/01/20 17:20 Alkaline Phosphatase 66 units/L (35-129) 03/01/20 17:20 Lactate Dehydrogenase 202 units/L (91-180) H 03/01/20 17:20 C-Reactive Protein 1.00 mg/dL (0.00-1.30) 03/01/20 17:20 Total Protein 7.7 g/dL (6.3-8.2) 03/01/20 17:20 Albumin 4.2 g/dL (3.9-5) 03/01/20 17:20 Albumin/Globulin Ratio 1.2 % 03/01/20 17:20 Procalcitonin < 0.05 ng/mL (<0.15) 03/01/20 17:20 Coronavirus (PCR) Positive (Negative) A 03/02/20 10:00 Jarvis/IV: Voiding Method Toilet IV Catheter Type [Left INT / Saline Lock Antecubital] Active Medications - Current Medications Current Medications: Generic Name Dose Route Start Last Admin Trade Name Freq PRN Reason Stop Dose Admin Acetaminophen 650 mg 03/01/20 19:17 Acetaminophen 325 Mg Tab PO Q4H PRN Pain MILD(1-3)/Fever >100.5/RAYGOZA Albuterol 2.5 mg 03/01/20 19:17 03/01/20 21:38 Albuterol 2.5 Mg/3 Ml Nebu IH 2.5 mg Q4HRT PRN Administration Shortness Of Breath Famotidine 10 mg 03/01/20 22:00 03/03/20 10:32 Famotidine 10 Mg Tab PO 10 mg BID CORTEZ Administration Heparin Sodium (Porcine) 5,000 unit 03/01/20 22:00 03/03/20 10:33 Heparin 5,000 Unit/1 Ml Vial SUB-Q 5,000 unit Q12HR CORTEZ Administration Azithromycin 500 mg/ Sodium 250 mls @ 250 mls/hr 03/01/20 20:00 03/02/20 22:05 Chloride IV Infused Q24H CORTEZ Infusion Protocol REMDESIVIR 100 mg/ Sodium 250 mls @ 500 mls/hr 03/04/20 21:00 Chloride IV 03/07/20 21:29 Q24HR@2100 [facility] Methylprednisolone Sodium Succinate 40 mg 03/01/20 22:00 03/03/20 06:04 Methylprednisolone Sod Succinate 40 Mg/1 Ml Inj IV 40 mg Q8H CORTEZ Administration Ondansetron HCl 4 mg 03/01/20 19:17 Ondansetron 4 Mg/2 Ml Inj IV Q8H PRN Nausea And Vomiting Sodium Chloride 10 ml 03/01/20 22:00 03/03/20 10:33 Sodium Chloride 0.9% 10 Ml Flush Syringe IV 10 ml BID CORTEZ Administration Sodium Chloride 10 ml 03/01/20 19:17 Sodium Chloride 0.9% 10 Ml Flush Syringe IV PRN PRN LINE FLUSH Sodium Chloride 50 ml 03/04/20 21:00 Sodium Chloride 0.9% 50 Ml Ivpb IV 03/07/20 21:01 Q24HR@2100 [facility]
[2020-03-03 15:47] LABS: Basophils % (Auto) 0.1 % (0.0-1.8); Hematocrit 33.2 % (35.5-45.6); Hemoglobin 10.7 gm/dl (11.8-15.2); Lymphocytes # (Auto) 0.4 K/mm3 (1.2-5.4); Lymphocytes % (Auto) 10.1 % (13.4-35.0); Mean Corpuscular HGB Conc 32 % (32-34); Mean Corpuscular Volume 79 fl (84-94); Monocytes # (Auto) 0.2 K/mm3 (0.0-0.8); Monocytes % (Auto) 4.7 % (0.0-7.3); Platelet Count 306 K/mm3 (140-440); Red Blood Count 4.19 M/mm3 (3.65-5.03)
[2020-03-03] MEDS: ASCORBIC ACID 500 MG TAB PO SCH (21:44)
[2020-03-03] MEDS: AZITHROMYCIN 500 MG in SODIUM CHLORIDE 0.9% 250ML 250 ML IV SCH (21:44)
[2020-03-04] MEDS: methylPREDNISolone Sod Succinate 40 MG/1 ML INJ IV SCH ×3 (05:06→22:43)
[2020-03-04 07:01] LABS: Hematocrit 33.2 % (35.5-45.6); Hemoglobin 10.9 gm/dl (11.8-15.2); Mean Corpuscular HGB Conc 33 % (32-34); Mean Corpuscular Volume 79 fl (84-94); Platelet Count 274 K/mm3 (140-440); Red Cell Distribution Width 16.4 % (13.2-15.2)
[2020-03-04 07:32] LABS: Blood Urea Nitrogen 12 mg/dL (9-20); Calcium 8.7 mg/dL (8.4-10.2); Hemolysis Index 0
[2020-03-04 07:34] LABS: BUN/Creatinine Ratio 20
[2020-03-04] MEDS: HEPARIN 5,000 UNIT/1 ML VIAL SUB-Q SCH ×2 (09:04→22:43)
[2020-03-04] MEDS: ZINC SULFATE 220 MG CAP PO SCH (09:05)
[2020-03-04] MEDS: CHOLECALCIFEROL (VIT D3) 5,000 UNIT TAB PO SCH (09:05)
[2020-03-04] MEDS: FAMOTIDINE 10 MG TAB PO SCH ×2 (09:09→22:44)
--- NOTE | 2020-03-04 10:14 | Progress Note ---
Assessment and Plan Assessment and plan: 25 YO Male who is currently an inpatient at [facility] with Depression, Asthma, HLD, Developmental Delay presents to ED for evaluation. Patient reports "feeling 6" over the past 2 days. Patient states that he has experienced fever, dry cough, shortness of breath, body aches, malaise, nausea, multiple loose stools. Patient underwent a coronavirus test on yesterday and was found to be COVID-19 positive. Patient has experienced persistent symptoms over the same timeframe. EMS was notified and upon arrival the patient was found to be in distress and subsequently transported to [facility] for further care and evaluation of the aforementioned symptoms. The patient was seen and evaluated in the [facility] department. All lab and imaging studies reviewed. The patient was found to have a pulse oximetry of 87% with exertion which is consistent with acute hypoxemic respiratory failure. The patient underwent chest x-ray and was found to have pneumonia. The patient was admitted to medical floor and initiated on pneumonia protocol as well as coronavirus protocol. Infectious disease service consulted. Patient denies chills, chest pain, palpitation, skin rash or recent ill contacts. No prior admission for review. No medication listed at time of admission for reconciliation. 03/02/20 Doing well On 3 liters [place] o2 Smith virys positive 03/03: Continue oxygen therapy at this time. We will add some vitamins supplementation. A dose of Lasix today. Patient noted to have leukopenia we will continue to monitor closely. Remdesivir was started. Patient requesting for his phone from [facility] and staff to help locate. 03/04: Continue supportive care, Discussed with family Mica Pritchett [phone], anticipate discharge in a day or two. Per family the patient has a hx of SI/HI and was at [facility] for the same thing. She reports that this is a monthly thing and has not had an attempt. Will obtain Mental health consult. (1) Acute hypoxemic respiratory failure Current Visit: Yes Status: Acute Plan to address problem: Cont Oxygen supplement (2) Pneumonia due to COVID-19 virus Current Visit: Yes Status: Acute Plan to address problem: ID consult appreciated coronavirus PCR positive Per ID start remdesivir if positive (3) Leukopenia Current Visit: Yes Status: Acute Plan to address problem: Secondary to Covid (4) Transaminitis Current Visit: Yes Status: Acute Plan to address problem: Secondary to forward (5) DVT prophylaxis Current Visit: Yes Status: Acute Plan to address problem: On Lovenox and GI prophylaxis History Interval history: Patient seen and examined resting, reports improvement, continue current management. Discussed with patients Aunty. He denies HI or SI Hospitalist Physical - Physical exam Narrative exam: VITAL SIGNS: Reviewed. GENERAL: The patient appears normally developed, Vital signs as documented. HEAD: No signs of head trauma. EYES: Pupils are equal. Extraocular motions intact. EARS: Hearing grossly intact. MOUTH: Oropharynx is normal. NECK: No adenopathy, no JVD. CHEST: Chest with diminished breath sounds bilaterally. No wheezes, rales, or rhonchi. CARDIAC: Regular rate and rhythm. S1 and S2, without murmurs, gallops, or rubs. VASCULAR: No Edema. Peripheral pulses normal and equal in all extremities. ABDOMEN: Soft, non tender and non distended. No rebound or guarding, and no masses palpated. Bowel Sounds normal. MUSCULOSKELETAL: Good range of motion of all major joints. Extremities without clubbing, cyanosis or edema. NEUROLOGIC EXAM: Alert and oriented x 3 No focal sensory or strength deficits. Speech normal. Follows commands. PSYCHIATRIC: Mood normal. SKIN: detail exam as documented in skin assessment - Constitutional Vitals: Temp Pulse Resp BP Pulse Ox 98.1 F 61 16 126/52 94 03/03/20 21:51 03/03/20 21:51 03/04/20 02:00 03/03/20 21:51 03/04/20 08:45 General appearance: Present: no acute distress, well-nourished Results - Labs CBC & Chem 7: 03/04/20 06:01 03/04/20 06:01 Labs: Laboratory Last Values WBC 5.8 K/mm3 (4.5-11.0) 03/04/20 06:01 RBC 4.20 M/mm3 (3.65-5.03) 03/04/20 06:01 Hgb 10.9 gm/dl (11.8-15.2) L 03/04/20 06:01 Hct 33.2 % (35.5-45.6) L 03/04/20 06:01 MCV 79 fl (84-94) L 03/04/20 06:01 MCH 26 pg (28-32) L 03/04/20 06:01 MCHC 33 % (32-34) 03/04/20 06:01 RDW 16.4 % (13.2-15.2) H 03/04/20 06:01 Plt Count 274 K/mm3 (140-440) 03/04/20 06:01 Lymph % (Auto) 10.1 % (13.4-35.0) L 03/03/20 15:15 [place] % (Auto) 4.7 % (0.0-7.3) 03/03/20 15:15 Eos % (Auto) 0.0 % (0.0-4.3) 03/03/20 15:15 Baso % (Auto) 0.1 % (0.0-1.8) 03/03/20 15:15 Lymph # (Auto) 0.4 K/mm3 (1.2-5.4) L 03/03/20 15:15 [place] # (Auto) 0.2 K/mm3 (0.0-0.8) 03/03/20 15:15 Eos # (Auto) 0.0 K/mm3 (0.0-0.4) 03/03/20 15:15 Baso # (Auto) 0.0 K/mm3 (0.0-0.1) 03/03/20 15:15 Add Manual Diff Complete 03/02/20 05:31 Total Counted 100 03/02/20 05:31 Seg Neutrophils % 85.1 % (40.0-70.0) H 03/03/20 15:15 Seg Neuts % (Manual) 74.0 % (40.0-70.0) H 03/02/20 05:31 Lymphocytes % (Manual) 23.0 % (13.4-35.0) 03/02/20 05:31 Monocytes % (Manual) 3.0 % (0.0-7.3) 03/02/20 05:31 Nucleated RBC % Not Reportable 03/02/20 05:31 Seg Neutrophils # 3.6 K/mm3 (1.8-7.7) 03/03/20 15:15 Seg Neutrophils # Man 1.3 K/mm3 (1.8-7.7) L 03/02/20 05:31 Band Neutrophils # 0.0 K/mm3 03/02/20 05:31 Lymphocytes # (Manual) 0.4 K/mm3 (1.2-5.4) L 03/02/20 05:31 Abs React Lymphs (Man) 0.0 K/mm3 03/02/20 05:31 Monocytes # (Manual) 0.1 K/mm3 (0.0-0.8) 03/02/20 05:31 Eosinophils # (Manual) 0.0 K/mm3 (0.0-0.4) 03/02/20 05:31 Basophils # (Manual) 0.0 K/mm3 (0.0-0.1) 03/02/20 05:31 Metamyelocytes # 0.0 K/mm3 03/02/20 05:31 Myelocytes # 0.0 K/mm3 03/02/20 05:31 Promyelocytes # 0.0 K/mm3 03/02/20 05:31 Blast Cells # 0.0 K/mm3 03/02/20 05:31 WBC Morphology Not Reportable 03/02/20 05:31 Hypersegmented Neuts Not Reportable 03/02/20 05:31 Hyposegmented Neuts Not Reportable 03/02/20 05:31 Hypogranular Neuts Not Reportable 03/02/20 05:31 Smudge Cells Not Reportable 03/02/20 05:31 Toxic Granulation Not Reportable 03/02/20 05:31 Toxic Vacuolation Not Reportable 03/02/20 05:31 Dohle Bodies Not Reportable 03/02/20 05:31 Pelger-Huet Anomaly Not Reportable 03/02/20 05:31 Gerardo Rods Not Reportable 03/02/20 05:31 Platelet Estimate Consistent w auto 03/02/20 05:31 Clumped Platelets Not Reportable 03/02/20 05:31 Plt Clumps, EDTA Not Reportable 03/02/20 05:31 Large Platelets Not Reportable 03/02/20 05:31 Giant Platelets Not Reportable 03/02/20 05:31 Platelet Satelliting Not Reportable 03/02/20 05:31 Plt Morphology Comment Not Reportable 03/02/20 05:31 RBC Morphology Not Reportable 03/02/20 05:31 Dimorphic RBCs Not Reportable 03/02/20 05:31 Polychromasia Not Reportable 03/02/20 05:31 Hypochromasia 1+ 03/02/20 05:31 Poikilocytosis Not Reportable 03/02/20 05:31 Anisocytosis Not Reportable 03/02/20 05:31 Microcytosis Not Reportable 03/02/20 05:31 Macrocytosis Not Reportable 03/02/20 05:31 Spherocytes Not Reportable 03/02/20 05:31 Pappenheimer Bodies Not Reportable 03/02/20 05:31 Sickle Cells Not Reportable 03/02/20 05:31 Target Cells Not Reportable 03/02/20 05:31 Tear Drop Cells Not Reportable 03/02/20 05:31 Ovalocytes Few 03/02/20 05:31 Helmet Cells Not Reportable 03/02/20 05:31 [place] Bodies Not Reportable 03/02/20 05:31 [place] Rings Not Reportable 03/02/20 05:31 [place] Cells Not Reportable 03/02/20 05:31 Bite Cells Not Reportable 03/02/20 05:31 Crenated Cell Not Reportable 03/02/20 05:31 Elliptocytes Not Reportable 03/02/20 05:31 Acanthocytes (Spur) Not Reportable 03/02/20 05:31 Rouleaux Not Reportable 03/02/20 05:31 Hemoglobin C Crystals Not Reportable 03/02/20 05:31 Schistocytes Not Reportable 03/02/20 05:31 Malaria parasites Not Reportable 03/02/20 05:31 Julio Bodies Not Reportable 03/02/20 05:31 Hem Pathologist Commnt No 03/02/20 05:31 PT 12.2 Sec. (12.2-14.9) 03/01/20 17:20 INR 0.92 (0.87-1.13) 03/01/20 17:20 APTT 30.3 Sec. (24.2-36.6) 03/01/20 17:20 D-Dimer 236.88 ng/mlDDU (0-234) H 03/01/20 17:20 D-Dimer 274.02 ng/mlDDU (0-234) H 03/01/20 17:20 Sodium 144 mmol/L (137-145) 03/04/20 06:01 Potassium 3.9 mmol/L (3.6-5.0) 03/04/20 06:01 Chloride 107.5 mmol/L (98-107) H 03/04/20 06:01 Carbon Dioxide 29 mmol/L (22-30) 03/04/20 06:01 Anion Gap 11 mmol/L 03/04/20 06:01 BUN 12 mg/dL (9-20) 03/04/20 06:01 Creatinine 0.6 mg/dL (0.8-1.3) L 03/04/20 06:01 Estimated GFR > 60 ml/min 03/04/20 06:01 BUN/Creatinine Ratio 20 % 03/04/20 06:01 Glucose 133 mg/dL (75-100) H 03/04/20 06:01 Calcium 8.7 mg/dL (8.4-10.2) 03/04/20 06:01 Ferritin 42.8 ng/mL (30.0-300.0) 03/01/20 17:20 Total Bilirubin 0.20 mg/dL (0.1-1.2) 03/01/20 17:20 Direct Bilirubin < 0.2 mg/dL (0-0.2) 03/01/20 17:20 AST 47 units/L (5-40) H 03/01/20 17:20 ALT 57 units/L (7-56) H 03/01/20 17:20 Alkaline Phosphatase 66 units/L (35-129) 03/01/20 17:20 Lactate Dehydrogenase 202 units/L (91-180) H 03/01/20 17:20 C-Reactive Protein 1.00 mg/dL (0.00-1.30) 03/01/20 17:20 Total Protein 7.7 g/dL (6.3-8.2) 03/01/20 17:20 Albumin 4.2 g/dL (3.9-5) 03/01/20 17:20 Albumin/Globulin Ratio 1.2 % 03/01/20 17:20 Procalcitonin < 0.05 ng/mL (<0.15) 03/01/20 17:20 Coronavirus (PCR) Positive (Negative) A 03/02/20 10:00 Jarvis/IV: Voiding Method Toilet IV Catheter Type [Left INT / Saline Lock Antecubital] Active Medications - Current Medications Current Medications: Generic Name Dose Route Start Last Admin Trade Name Freq PRN Reason Stop Dose Admin Acetaminophen 650 mg 03/01/20 19:17 Acetaminophen 325 Mg Tab PO Q4H PRN Pain MILD(1-3)/Fever >100.5/RAYGOZA Albuterol 2.5 mg 03/01/20 19:17 03/01/20 21:38 Albuterol 2.5 Mg/3 Ml Nebu IH 2.5 mg Q4HRT PRN Administration Shortness Of Breath Ascorbic Acid 1,000 mg 03/03/20 22:00 03/03/20 21:44 Ascorbic Acid 500 Mg Tab PO 1,000 mg BID CORTEZ Administration Cholecalciferol 5,000 unit 03/04/20 10:00 03/04/20 09:05 Cholecalciferol (Vit D3) 5,000 Unit Tab PO 5,000 unit DAILY CORTEZ Administration Famotidine 10 mg 03/01/20 22:00 03/04/20 09:09 Famotidine 10 Mg Tab PO 10 mg BID CORTEZ Administration Heparin Sodium (Porcine) 5,000 unit 03/01/20 22:00 03/04/20 09:04 Heparin 5,000 Unit/1 Ml Vial SUB-Q 5,000 unit Q12HR CORTEZ Administration Azithromycin 500 mg/ Sodium 250 mls @ 250 mls/hr 03/01/20 20:00 03/03/20 21:44 Chloride IV 250 mls/hr Q24H CORTEZ Administration Protocol REMDESIVIR 100 mg/ Sodium 250 mls @ 500 mls/hr 03/04/20 21:00 Chloride IV 03/07/20 21:29 Q24HR@2100 CORTEZ Methylprednisolone Sodium Succinate 40 mg 03/01/20 22:00 03/04/20 05:06 Methylprednisolone Sod Succinate 40 Mg/1 Ml Inj IV 40 mg Q8H CORTEZ Administration Ondansetron HCl 4 mg 03/01/20 19:17 Ondansetron 4 Mg/2 Ml Inj IV Q8H PRN Nausea And Vomiting Sodium Chloride 10 ml 03/01/20 22:00 03/04/20 09:09 Sodium Chloride 0.9% 10 Ml Flush Syringe IV 10 ml BID CORTEZ Administration Sodium Chloride 10 ml 03/01/20 19:17 Sodium Chloride 0.9% 10 Ml Flush Syringe IV PRN PRN LINE FLUSH Sodium Chloride 50 ml 03/04/20 21:00 Sodium Chloride 0.9% 50 Ml Ivpb IV 03/07/20 21:01 Q24HR@2100 CORTEZ Zinc Sulfate 220 mg 03/04/20 10:00 03/04/20 09:05 Zinc Sulfate 220 Mg Cap PO 220 mg QDAY CORTEZ Administration
[2020-03-04] MEDS: ASCORBIC ACID 500 MG TAB PO SCH ×2 (10:30→22:44)
[2020-03-04] MEDS: AZITHROMYCIN 500 MG in SODIUM CHLORIDE 0.9% 250ML 250 ML IV SCH (22:44)
[2020-03-04] MEDS: SODIUM CHLORIDE 0.9% 50 ML IVPB IV SCH (22:44)
[2020-03-04] MEDS: REMDESIVIR 100 MG in SODIUM CHLORIDE 0.9% 250ML 250 ML IV SCH (22:45)
[2020-03-05] MEDS: methylPREDNISolone Sod Succinate 40 MG/1 ML INJ IV SCH ×3 (05:51→21:50)
[2020-03-05] MEDS: ASCORBIC ACID 500 MG TAB PO SCH ×2 (09:26→21:46)
[2020-03-05] MEDS: HEPARIN 5,000 UNIT/1 ML VIAL SUB-Q SCH ×2 (09:26→21:45)
[2020-03-05] MEDS: FAMOTIDINE 10 MG TAB PO SCH ×2 (09:26→21:46)
[2020-03-05] MEDS: ZINC SULFATE 220 MG CAP PO SCH (09:26)
[2020-03-05] MEDS: CHOLECALCIFEROL (VIT D3) 5,000 UNIT TAB PO SCH (09:26)
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
--- NOTE | 2020-03-05 12:04 | Progress Note ---
Assessment and Plan Assessment and plan: 25 YO Male who is currently an inpatient at [facility] with Depression, Asthma, HLD, Developmental Delay presents to ED for evaluation. Patient reports "feeling 6" over the past 2 days. Patient states that he has experienced fever, dry cough, shortness of breath, body aches, malaise, nausea, multiple loose stools. Patient underwent a coronavirus test on yesterday and was found to be COVID-19 positive. Patient has experienced persistent symptoms over the same timeframe. EMS was notified and upon arrival the patient was found to be in distress and subsequently transported to [facility] for further care and evaluation of the aforementioned symptoms. The patient was seen and evaluated in the [facility]. All lab and imaging studies reviewed. The patient was found to have a pulse oximetry of 87% with exertion which is consistent with acute hypoxemic respiratory failure. The patient underwent chest x-ray and was found to have pneumonia. The patient was admitted to medical floor and initiated on pneumonia protocol as well as coronavirus protocol. Infectious disease service consulted. Patient denies chills, chest pain, palpitation, skin rash or recent ill contacts. No prior admission for review. No medication listed at time of admission for reconciliation. 03/02/20 Doing well On 3 liters [place] o2 Smith virys positive 03/03: Continue oxygen therapy at this time. We will add some vitamins supplementation. A dose of Lasix today. Patient noted to have leukopenia we will continue to monitor closely. Remdesivir was started. Patient requesting for his phone from [facility] and staff to help locate. 03/04: Continue supportive care, Discussed with family Mica Pritchett [phone], anticipate discharge in a day or two. Per family the patient has a hx of SI/HI and was at [facility] for the same thing. She reports that this is a monthly thing and has not had an attempt. Will obtain Mental health consult. 03/05: Patient clinically improving. Continue remdesivir and steroids. Discussed with nursing staff they will check room air oxygen today in preparation for discharge within 24 to 48 hours. Psych evaluation pending. (1) Acute hypoxemic respiratory failure Current Visit: Yes Status: Acute Plan to address problem: Cont Oxygen supplement (2) Pneumonia due to COVID-19 virus Current Visit: Yes Status: Acute Plan to address problem: ID consult appreciated coronavirus PCR positive Per ID start remdesivir if positive (3) Leukopenia Current Visit: Yes Status: Acute Plan to address problem: Secondary to Covid (4) Transaminitis Current Visit: Yes Status: Acute Plan to address problem: Secondary to forward (5) DVT prophylaxis Current Visit: Yes Status: Acute Plan to address problem: On Lovenox and GI prophylaxis History Interval history: Patient seen and examined resting, reports improvement, continue current management. Awaiting psych management.. He denies HI or SI Hospitalist Physical - Physical exam Narrative exam: VITAL SIGNS: Reviewed. GENERAL: The patient appears normally developed, Vital signs as documented. HEAD: No signs of head trauma. EYES: Pupils are equal. Extraocular motions intact. EARS: Hearing grossly intact. MOUTH: Oropharynx is normal. NECK: No adenopathy, no JVD. CHEST: Chest with diminished breath sounds bilaterally. No wheezes, rales, or rhonchi. CARDIAC: Regular rate and rhythm. S1 and S2, without murmurs, gallops, or rubs. VASCULAR: No Edema. Peripheral pulses normal and equal in all extremities. ABDOMEN: Soft, non tender and non distended. No rebound or guarding, and no masses palpated. Bowel Sounds normal. MUSCULOSKELETAL: Good range of motion of all major joints. Extremities without clubbing, cyanosis or edema. NEUROLOGIC EXAM: Alert and oriented x 3 No focal sensory or strength deficits. Speech normal. Follows commands. PSYCHIATRIC: Mood normal. SKIN: detail exam as documented in skin assessment - Constitutional Vitals: Temp Pulse Resp BP Pulse Ox 97.5 F L 54 L 18 117/62 95 03/05/20 04:52 03/05/20 04:52 03/05/20 04:52 03/05/20 04:52 03/05/20 09:00 General appearance: Present: no acute distress, well-nourished Results - Labs CBC & Chem 7: 03/04/20 06:01 03/04/20 06:01 Labs: Laboratory Last Values WBC 5.8 K/mm3 (4.5-11.0) 03/04/20 06:01 RBC 4.20 M/mm3 (3.65-5.03) 03/04/20 06:01 Hgb 10.9 gm/dl (11.8-15.2) L 03/04/20 06:01 Hct 33.2 % (35.5-45.6) L 03/04/20 06:01 MCV 79 fl (84-94) L 03/04/20 06:01 MCH 26 pg (28-32) L 03/04/20 06:01 MCHC 33 % (32-34) 03/04/20 06:01 RDW 16.4 % (13.2-15.2) H 03/04/20 06:01 Plt Count 274 K/mm3 (140-440) 03/04/20 06:01 Lymph % (Auto) 10.1 % (13.4-35.0) L 03/03/20 15:15 [place] % (Auto) 4.7 % (0.0-7.3) 03/03/20 15:15 Eos % (Auto) 0.0 % (0.0-4.3) 03/03/20 15:15 Baso % (Auto) 0.1 % (0.0-1.8) 03/03/20 15:15 Lymph # (Auto) 0.4 K/mm3 (1.2-5.4) L 03/03/20 15:15 [place] # (Auto) 0.2 K/mm3 (0.0-0.8) 03/03/20 15:15 Eos # (Auto) 0.0 K/mm3 (0.0-0.4) 03/03/20 15:15 Baso # (Auto) 0.0 K/mm3 (0.0-0.1) 03/03/20 15:15 Add Manual Diff Complete 03/02/20 05:31 Total Counted 100 03/02/20 05:31 Seg Neutrophils % 85.1 % (40.0-70.0) H 03/03/20 15:15 Seg Neuts % (Manual) 74.0 % (40.0-70.0) H 03/02/20 05:31 Lymphocytes % (Manual) 23.0 % (13.4-35.0) 03/02/20 05:31 Monocytes % (Manual) 3.0 % (0.0-7.3) 03/02/20 05:31 Nucleated RBC % Not Reportable 03/02/20 05:31 Seg Neutrophils # 3.6 K/mm3 (1.8-7.7) 03/03/20 15:15 Seg Neutrophils # Man 1.3 K/mm3 (1.8-7.7) L 03/02/20 05:31 Band Neutrophils # 0.0 K/mm3 03/02/20 05:31 Lymphocytes # (Manual) 0.4 K/mm3 (1.2-5.4) L 03/02/20 05:31 Abs React Lymphs (Man) 0.0 K/mm3 03/02/20 05:31 Monocytes # (Manual) 0.1 K/mm3 (0.0-0.8) 03/02/20 05:31 Eosinophils # (Manual) 0.0 K/mm3 (0.0-0.4) 03/02/20 05:31 Basophils # (Manual) 0.0 K/mm3 (0.0-0.1) 03/02/20 05:31 Metamyelocytes # 0.0 K/mm3 03/02/20 05:31 Myelocytes # 0.0 K/mm3 03/02/20 05:31 Promyelocytes # 0.0 K/mm3 03/02/20 05:31 Blast Cells # 0.0 K/mm3 03/02/20 05:31 WBC Morphology Not Reportable 03/02/20 05:31 Hypersegmented Neuts Not Reportable 03/02/20 05:31 Hyposegmented Neuts Not Reportable 03/02/20 05:31 Hypogranular Neuts Not Reportable 03/02/20 05:31 Smudge Cells Not Reportable 03/02/20 05:31 Toxic Granulation Not Reportable 03/02/20 05:31 Toxic Vacuolation Not Reportable 03/02/20 05:31 Dohle Bodies Not Reportable 03/02/20 05:31 Pelger-Huet Anomaly Not Reportable 03/02/20 05:31 Gerardo Rods Not Reportable 03/02/20 05:31 Platelet Estimate Consistent w auto 03/02/20 05:31 Clumped Platelets Not Reportable 03/02/20 05:31 Plt Clumps, EDTA Not Reportable 03/02/20 05:31 Large Platelets Not Reportable 03/02/20 05:31 Giant Platelets Not Reportable 03/02/20 05:31 Platelet Satelliting Not Reportable 03/02/20 05:31 Plt Morphology Comment Not Reportable 03/02/20 05:31 RBC Morphology Not Reportable 03/02/20 05:31 Dimorphic RBCs Not Reportable 03/02/20 05:31 Polychromasia Not Reportable 03/02/20 05:31 Hypochromasia 1+ 03/02/20 05:31 Poikilocytosis Not Reportable 03/02/20 05:31 Anisocytosis Not Reportable 03/02/20 05:31 Microcytosis Not Reportable 03/02/20 05:31 Macrocytosis Not Reportable 03/02/20 05:31 Spherocytes Not Reportable 03/02/20 05:31 Pappenheimer Bodies Not Reportable 03/02/20 05:31 Sickle Cells Not Reportable 03/02/20 05:31 Target Cells Not Reportable 03/02/20 05:31 Tear Drop Cells Not Reportable 03/02/20 05:31 Ovalocytes Few 03/02/20 05:31 Helmet Cells Not Reportable 03/02/20 05:31 [place] Bodies Not Reportable 03/02/20 05:31 [place] Rings Not Reportable 03/02/20 05:31 [place] Cells Not Reportable 03/02/20 05:31 Bite Cells Not Reportable 03/02/20 05:31 Crenated Cell Not Reportable 03/02/20 05:31 Elliptocytes Not Reportable 03/02/20 05:31 Acanthocytes (Spur) Not Reportable 03/02/20 05:31 Rouleaux Not Reportable 03/02/20 05:31 Hemoglobin C Crystals Not Reportable 03/02/20 05:31 Schistocytes Not Reportable 03/02/20 05:31 Malaria parasites Not Reportable 03/02/20 05:31 Julio Bodies Not Reportable 03/02/20 05:31 Hem Pathologist Commnt No 03/02/20 05:31 PT 12.2 Sec. (12.2-14.9) 03/01/20 17:20 INR 0.92 (0.87-1.13) 03/01/20 17:20 APTT 30.3 Sec. (24.2-36.6) 03/01/20 17:20 D-Dimer 236.88 ng/mlDDU (0-234) H 03/01/20 17:20 D-Dimer 274.02 ng/mlDDU (0-234) H 03/01/20 17:20 Sodium 144 mmol/L (137-145) 03/04/20 06:01 Potassium 3.9 mmol/L (3.6-5.0) 03/04/20 06:01 Chloride 107.5 mmol/L (98-107) H 03/04/20 06:01 Carbon Dioxide 29 mmol/L (22-30) 03/04/20 06:01 Anion Gap 11 mmol/L 03/04/20 06:01 BUN 12 mg/dL (9-20) 03/04/20 06:01 Creatinine 0.6 mg/dL (0.8-1.3) L 03/04/20 06:01 Estimated GFR > 60 ml/min 03/04/20 06:01 BUN/Creatinine Ratio 20 % 03/04/20 06:01 Glucose 133 mg/dL (75-100) H 03/04/20 06:01 Calcium 8.7 mg/dL (8.4-10.2) 03/04/20 06:01 Ferritin 42.8 ng/mL (30.0-300.0) 03/01/20 17:20 Total Bilirubin 0.20 mg/dL (0.1-1.2) 03/01/20 17:20 Direct Bilirubin < 0.2 mg/dL (0-0.2) 03/01/20 17:20 AST 47 units/L (5-40) H 03/01/20 17:20 ALT 57 units/L (7-56) H 03/01/20 17:20 Alkaline Phosphatase 66 units/L (35-129) 03/01/20 17:20 Lactate Dehydrogenase 202 units/L (91-180) H 03/01/20 17:20 C-Reactive Protein 1.00 mg/dL (0.00-1.30) 03/01/20 17:20 Total Protein 7.7 g/dL (6.3-8.2) 03/01/20 17:20 Albumin 4.2 g/dL (3.9-5) 03/01/20 17:20 Albumin/Globulin Ratio 1.2 % 03/01/20 17:20 Procalcitonin < 0.05 ng/mL (<0.15) 03/01/20 17:20 Coronavirus (PCR) Positive (Negative) A 03/02/20 10:00 Jarvis/IV: Voiding Method Toilet IV Catheter Type [Left Forearm INT / Saline Lock ] IV Catheter Type [Left Peripheral IV Antecubital] Active Medications - Current Medications Current Medications: Generic Name Dose Route Start Last Admin Trade Name Freq PRN Reason Stop Dose Admin Acetaminophen 650 mg 03/01/20 19:17 Acetaminophen 325 Mg Tab PO Q4H PRN Pain MILD(1-3)/Fever >100.5/RAYGOZA Albuterol 2.5 mg 03/01/20 19:17 03/01/20 21:38 Albuterol 2.5 Mg/3 Ml Nebu IH 2.5 mg Q4HRT PRN Administration Shortness Of Breath Ascorbic Acid 1,000 mg 03/03/20 22:00 03/05/20 09:26 Ascorbic Acid 500 Mg Tab PO 1,000 mg BID CORTEZ Administration Cholecalciferol 5,000 unit 03/04/20 10:00 03/05/20 09:26 Cholecalciferol (Vit D3) 5,000 Unit Tab PO 5,000 unit DAILY CORTEZ Administration Famotidine 10 mg 03/01/20 22:00 03/05/20 09:26 Famotidine 10 Mg Tab PO 10 mg BID CORTEZ Administration Heparin Sodium (Porcine) 5,000 unit 03/01/20 22:00 03/05/20 09:26 Heparin 5,000 Unit/1 Ml Vial SUB-Q 5,000 unit Q12HR CORTEZ Administration Azithromycin 500 mg/ Sodium 250 mls @ 250 mls/hr 03/01/20 20:00 03/04/20 22:44 Chloride IV 250 mls/hr Q24H CORTEZ Administration Protocol REMDESIVIR 100 mg/ Sodium 250 mls @ 500 mls/hr 03/04/20 21:00 03/04/20 22:45 Chloride IV 03/07/20 21:29 500 mls/hr Q24HR@2100 CORTEZ Administration Methylprednisolone Sodium Succinate 40 mg 03/01/20 22:00 03/05/20 05:51 Methylprednisolone Sod Succinate 40 Mg/1 Ml Inj IV 40 mg Q8H CORTEZ Administration Ondansetron HCl 4 mg 03/01/20 19:17 Ondansetron 4 Mg/2 Ml Inj IV Q8H PRN Nausea And Vomiting Sodium Chloride 10 ml 03/01/20 22:00 03/05/20 09:27 Sodium Chloride 0.9% 10 Ml Flush Syringe IV 10 ml BID CORTEZ Administration Sodium Chloride 10 ml 03/01/20 19:17 Sodium Chloride 0.9% 10 Ml Flush Syringe IV PRN PRN LINE FLUSH Sodium Chloride 50 ml 03/04/20 21:00 03/04/20 22:44 Sodium Chloride 0.9% 50 Ml Ivpb IV 03/07/20 21:01 50 ml Q24HR@2100 CORTEZ Administration Zinc Sulfate 220 mg 03/04/20 10:00 03/05/20 09:26 Zinc Sulfate 220 Mg Cap PO 220 mg QDAY CORTEZ Administration
--- NOTE | 2020-03-05 15:23 | Progress Note ---
Assessment and Plan Cultures: SARS CoV2 PCR: Positive A/P: 25-year-old male with asthma, depression, hyperlipidemia, mental developmental delay was admitted to the hospital with symptoms of fever, cough, shortness of breath along with diarrhea: #COVID-19 pneumonia: Right-sided pneumonia seen on CXR. Procalcitonin is low. Markers mildly elevated. #Acute/mild hypoxia #Asthma exacerbation: On steroids #Leukopenia: Secondary to COVID-19. Improving. Recs: On steroids for asthma exacerbation Continue remdesivir D 2 of 5 Stop antibiotics, procalcitonin <0.2 Obtain 6-minute walking oxygen test tomorrow, if passes okay to discharge after tomorrow's remdesivir dose Hortensia Wright MD [facility] ([facility]) Office [phone] Subjective Date of service: 03/05/20 Principal diagnosis: Covid Pneumonia Interval history: Remains on 2 L nasal cannula, no fever. Objective - Exam Narrative Exam: Deferred to minimize COVID-19 transmission in the setting of pandemic. - Constitutional Vitals: Vital Signs Temp Pulse Resp BP Pulse Ox 97.7 F 46 L 20 107/48 94 03/05/20 11:58 03/05/20 11:58 03/05/20 11:58 03/05/20 11:58 03/05/20 12:30 Temperature -Last 24 Hours Temperature 97.7 F Temperature 97.5 F Temperature 97.7 F Temperature 98.2 F - Labs CBC & Chem 7: 03/04/20 06:01 03/04/20 06:01
[2020-03-05] MEDS: REMDESIVIR 100 MG in SODIUM CHLORIDE 0.9% 250ML 250 ML IV SCH (21:45)
[2020-03-05] MEDS: SODIUM CHLORIDE 0.9% 50 ML IVPB IV SCH (21:45)
[2020-03-06] MEDS: methylPREDNISolone Sod Succinate 40 MG/1 ML INJ IV SCH ×3 (05:21→21:20)
[2020-03-06] MEDS: HEPARIN 5,000 UNIT/1 ML VIAL SUB-Q SCH ×2 (11:28→21:20)
[2020-03-06] MEDS: ASCORBIC ACID 500 MG TAB PO SCH ×2 (11:28→21:20)
[2020-03-06] MEDS: CHOLECALCIFEROL (VIT D3) 5,000 UNIT TAB PO SCH (11:29)
[2020-03-06] MEDS: ZINC SULFATE 220 MG CAP PO SCH (11:29)
--- NOTE | 2020-03-06 15:28 | Progress Note ---
Assessment and Plan Cultures: SARS CoV2 PCR: positive A/P: 25-year-old male with asthma, depression, hyperlipidemia, mental developmental delay was admitted to the hospital with symptoms of fever, cough, shortness of breath along with diarrhea: #Right-sided pneumonia: secondary to COVID 19. Seen on CXR. Procalcitonin is low. #Acute/mild hypoxia: improving #Asthma exacerbation: On steroids #Leukopenia: likely from COVID-19, improved Recs: continue steroids, also with asthma exacerbation. Complete at least 10 days from COVID standpoint given improvement in hypoxia, will d/c Remdesivir ID will sign off. Duy Pretty MD, FACP [facility] ([facility] O: [phone] F: [phone] Subjective Date of service: 03/06/20 Principal diagnosis: Covid Pneumonia Interval history: No fever. Per RN note, "room air 93 after walking 6 min" Objective - Exam Narrative Exam: Physical Exam (reviewed in chart to minimize risk of transmission) Constitutional: deferred Head, Ears, Nose: deferred Eyes: deferred Neck: deferred Oral: deferred Cardiovascular: deferred Respiratory: deferred GI: deferred Musculoskeletal: deferred Skin: deferred Hem/Lymphatic: deferred Psych: deferred Neurological: deferred - Constitutional Vitals: Vital Signs Temp Pulse Resp BP Pulse Ox 98.6 F 79 16 113/60 93 03/06/20 12:04 03/06/20 12:04 03/06/20 12:04 03/06/20 12:04 03/06/20 12:04 Temperature -Last 24 Hours Temperature 98.6 F Temperature 98.3 F - Labs CBC & Chem 7: 03/04/20 06:01 03/04/20 06:01
[2020-03-06] MEDS: FAMOTIDINE 10 MG TAB PO SCH (18:58)
--- NOTE | 2020-03-06 19:28 | Progress Note ---
Assessment and Plan Assessment and plan: -- Acute hypoxemic respiratory failure Current Visit: Yes Status: Acute Plan to address problem: Cont Oxygen supplement -- Pneumonia due to COVID-19 virus Current Visit: Yes Status: Acute Plan to address problem: ID following IV steroids, IV remdesivir Inflammatory markers, oxygen Home oxygen evaluation, prone position Anticoagulation per protocol Closely monitor -- Leukopenia Current Visit: Yes Status: Acute Plan to address problem: Secondary to Covid -- Transaminitis Current Visit: Yes Status: Acute Plan to address problem: Secondary to forward --Obesity; BMI 35 Current Visit: Yes Status: Acute Plan to address problem: patient needs weight reduction when medically stable --DVT prophylaxis Current Visit: Yes Status: Acute Plan to address problem: On Lovenox and GI prophylaxis Monitor closely and adjust management as needed Plan of care reviewed with the patient and his nurse Brief history and hospital course: 25 YO Male who is currently an inpatient at [facility] with Depression, Asthma, HLD, Developmental Delay presents to ED for evaluation. Patient reports "feeling 6" over the past 2 days. Patient states that he has experienced fever, dry cough, shortness of breath, body aches, malaise, nausea, multiple loose stools. Patient underwent a coronavirus test on yesterday and was found to be COVID-19 positive. Patient has experienced persistent symptoms over the same timeframe. EMS was notified and upon arrival the patient was found to be in distress and subsequently transported to [facility] for further care and evaluation of the aforementioned symptoms. The patient was seen and evaluated in the emergency department. All lab and imaging studies reviewed. The patient was found to have a pulse oximetry of 87% with exertion which is consistent with acute hypoxemic respiratory failure. The patient underwent chest x-ray and was found to have pneumonia. The patient was admitted to medical floor and initi ated on pneumonia protocol as well as coronavirus protocol. Infectious disease service consulted. Patient denies chills, chest pain, palpitation, skin rash or recent ill contacts. No prior admission for review. No medication listed at time of admission for reconciliation. 03/02/20:Doing well, On 3 liters [place] o2, Smith PCR positive 03/03: Continue oxygen therapy at this time. We will add some vitamins supplementation. A dose of Lasix today. Patient noted to have leukopenia we will continue to monitor closely. Remdesivir was started. Patient requesting for his phone from [facility] and staff to help locate. 03/04: Continue supportive care, Discussed with family Mica Pritchett [phone], anticipate discharge in a day or two. Per family the patient has a hx of SI/HI and was at [facility] for the same thing. She reports that this is a monthly thing and has not had an attempt. Will obtain Mental health consult. 03/05: Patient clinically improving. Continue remdesivir and steroids. Discussed with nursing staff they will check room air oxygen today in preparation for discharge within 24 to 48 hours. Psych evaluation pending 03/06; home oxygen evaluation, possible discharge home tomorrow if stable. History Interval history: I have seen and examined the patient at the bedside Patient's chart and medications reviewed Patient complains of shortness of breath On nasal cannula oxygen Vital signs noted Hospitalist Physical - Constitutional Vitals: Temp Pulse Resp BP Pulse Ox 98.9 F 62 20 117/53 92 03/06/20 17:50 03/06/20 17:50 03/06/20 17:50 03/06/20 17:50 03/06/20 17:50 General appearance: Present: mild distress, well-nourished, obese - EENT Eyes: Present: PERRL, EOM intact - Neck Neck: Present: supple, normal ROM - Respiratory Respiratory effort: normal Respiratory: bilateral: diminished, rhonchi, negative: rales, wheezing - Cardiovascular Rhythm: regular Heart Sounds: Present: S1 & S2 - Extremities Extremities: no ischemia, No edema - Abdominal General gastrointestinal: soft, non-tender, non-distended, normal bowel sounds - Integumentary Integumentary: Present: clear, warm - Psychiatric Psychiatric: appropriate mood/affect, cooperative - Neurologic Neurologic: moves all extremities Results - Labs CBC & Chem 7: 03/04/20 06:01 03/04/20 06:01 Labs: Laboratory Last Values WBC 5.8 K/mm3 (4.5-11.0) 03/04/20 06:01 RBC 4.20 M/mm3 (3.65-5.03) 03/04/20 06:01 Hgb 10.9 gm/dl (11.8-15.2) L 03/04/20 06:01 Hct 33.2 % (35.5-45.6) L 03/04/20 06:01 MCV 79 fl (84-94) L 03/04/20 06:01 MCH 26 pg (28-32) L 03/04/20 06:01 MCHC 33 % (32-34) 03/04/20 06:01 RDW 16.4 % (13.2-15.2) H 03/04/20 06:01 Plt Count 274 K/mm3 (140-440) 03/04/20 06:01 Lymph % (Auto) 10.1 % (13.4-35.0) L 03/03/20 15:15 [place] % (Auto) 4.7 % (0.0-7.3) 03/03/20 15:15 Eos % (Auto) 0.0 % (0.0-4.3) 03/03/20 15:15 Baso % (Auto) 0.1 % (0.0-1.8) 03/03/20 15:15 Lymph # (Auto) 0.4 K/mm3 (1.2-5.4) L 03/03/20 15:15 [place] # (Auto) 0.2 K/mm3 (0.0-0.8) 03/03/20 15:15 Eos # (Auto) 0.0 K/mm3 (0.0-0.4) 03/03/20 15:15 Baso # (Auto) 0.0 K/mm3 (0.0-0.1) 03/03/20 15:15 Add Manual Diff Complete 03/02/20 05:31 Total Counted 100 03/02/20 05:31 Seg Neutrophils % 85.1 % (40.0-70.0) H 03/03/20 15:15 Seg Neuts % (Manual) 74.0 % (40.0-70.0) H 03/02/20 05:31 Lymphocytes % (Manual) 23.0 % (13.4-35.0) 03/02/20 05:31 Monocytes % (Manual) 3.0 % (0.0-7.3) 03/02/20 05:31 Nucleated RBC % Not Reportable 03/02/20 05:31 Seg Neutrophils # 3.6 K/mm3 (1.8-7.7) 03/03/20 15:15 Seg Neutrophils # Man 1.3 K/mm3 (1.8-7.7) L 03/02/20 05:31 Band Neutrophils # 0.0 K/mm3 03/02/20 05:31 Lymphocytes # (Manual) 0.4 K/mm3 (1.2-5.4) L 03/02/20 05:31 Abs React Lymphs (Man) 0.0 K/mm3 03/02/20 05:31 Monocytes # (Manual) 0.1 K/mm3 (0.0-0.8) 03/02/20 05:31 Eosinophils # (Manual) 0.0 K/mm3 (0.0-0.4) 03/02/20 05:31 Basophils # (Manual) 0.0 K/mm3 (0.0-0.1) 03/02/20 05:31 Metamyelocytes # 0.0 K/mm3 03/02/20 05:31 Myelocytes # 0.0 K/mm3 03/02/20 05:31 Promyelocytes # 0.0 K/mm3 03/02/20 05:31 Blast Cells # 0.0 K/mm3 03/02/20 05:31 WBC Morphology Not Reportable 03/02/20 05:31 Hypersegmented Neuts Not Reportable 03/02/20 05:31 Hyposegmented Neuts Not Reportable 03/02/20 05:31 Hypogranular Neuts Not Reportable 03/02/20 05:31 Smudge Cells Not Reportable 03/02/20 05:31 Toxic Granulation Not Reportable 03/02/20 05:31 Toxic Vacuolation Not Reportable 03/02/20 05:31 Dohle Bodies Not Reportable 03/02/20 05:31 Pelger-Huet Anomaly Not Reportable 03/02/20 05:31 Gerardo Rods Not Reportable 03/02/20 05:31 Platelet Estimate Consistent w auto 03/02/20 05:31 Clumped Platelets Not Reportable 03/02/20 05:31 Plt Clumps, EDTA Not Reportable 03/02/20 05:31 Large Platelets Not Reportable 03/02/20 05:31 Giant Platelets Not Reportable 03/02/20 05:31 Platelet Satelliting Not Reportable 03/02/20 05:31 Plt Morphology Comment Not Reportable 03/02/20 05:31 RBC Morphology Not Reportable 03/02/20 05:31 Dimorphic RBCs Not Reportable 03/02/20 05:31 Polychromasia Not Reportable 03/02/20 05:31 Hypochromasia 1+ 03/02/20 05:31 Poikilocytosis Not Reportable 03/02/20 05:31 Anisocytosis Not Reportable 03/02/20 05:31 Microcytosis Not Reportable 03/02/20 05:31 Macrocytosis Not Reportable 03/02/20 05:31 Spherocytes Not Reportable 03/02/20 05:31 Pappenheimer Bodies Not Reportable 03/02/20 05:31 Sickle Cells Not Reportable 03/02/20 05:31 Target Cells Not Reportable 03/02/20 05:31 Tear Drop Cells Not Reportable 03/02/20 05:31 Ovalocytes Few 03/02/20 05:31 Helmet Cells Not Reportable 03/02/20 05:31 Aguilar-[place] Bodies Not Reportable 03/02/20 05:31 [place] Rings Not Reportable 03/02/20 05:31 [place] Cells Not Reportable 03/02/20 05:31 Bite Cells Not Reportable 03/02/20 05:31 Crenated Cell Not Reportable 03/02/20 05:31 Elliptocytes Not Reportable 03/02/20 05:31 Acanthocytes (Spur) Not Reportable 03/02/20 05:31 Rouleaux Not Reportable 03/02/20 05:31 Hemoglobin C Crystals Not Reportable 03/02/20 05:31 Schistocytes Not Reportable 03/02/20 05:31 Malaria parasites Not Reportable 03/02/20 05:31 Julio Bodies Not Reportable 03/02/20 05:31 Hem Pathologist Commnt No 03/02/20 05:31 PT 12.2 Sec. (12.2-14.9) 03/01/20 17:20 INR 0.92 (0.87-1.13) 03/01/20 17:20 APTT 30.3 Sec. (24.2-36.6) 03/01/20 17:20 D-Dimer 236.88 ng/mlDDU (0-234) H 03/01/20 17:20 D-Dimer 274.02 ng/mlDDU (0-234) H 03/01/20 17:20 Sodium 144 mmol/L (137-145) 03/04/20 06:01 Potassium 3.9 mmol/L (3.6-5.0) 03/04/20 06:01 Chloride 107.5 mmol/L (98-107) H 03/04/20 06:01 Carbon Dioxide 29 mmol/L (22-30) 03/04/20 06:01 Anion Gap 11 mmol/L 03/04/20 06:01 BUN 12 mg/dL (9-20) 03/04/20 06:01 Creatinine 0.6 mg/dL (0.8-1.3) L 03/04/20 06:01 Estimated GFR > 60 ml/min 03/04/20 06:01 BUN/Creatinine Ratio 20 % 03/04/20 06:01 Glucose 133 mg/dL (75-100) H 03/04/20 06:01 Calcium 8.7 mg/dL (8.4-10.2) 03/04/20 06:01 Ferritin 42.8 ng/mL (30.0-300.0) 03/01/20 17:20 Total Bilirubin 0.20 mg/dL (0.1-1.2) 03/01/20 17:20 Direct Bilirubin < 0.2 mg/dL (0-0.2) 03/01/20 17:20 AST 47 units/L (5-40) H 03/01/20 17:20 ALT 57 units/L (7-56) H 03/01/20 17:20 Alkaline Phosphatase 66 units/L (35-129) 03/01/20 17:20 Lactate Dehydrogenase 202 units/L (91-180) H 03/01/20 17:20 C-Reactive Protein 1.00 mg/dL (0.00-1.30) 03/01/20 17:20 Total Protein 7.7 g/dL (6.3-8.2) 03/01/20 17:20 Albumin 4.2 g/dL (3.9-5) 03/01/20 17:20 Albumin/Globulin Ratio 1.2 % 03/01/20 17:20 Procalcitonin < 0.05 ng/mL (<0.15) 03/01/20 17:20 Coronavirus (PCR) Positive (Negative) A 03/02/20 10:00 Jarvis/IV: Voiding Method Toilet IV Catheter Type [Left Forearm INT / Saline Lock ] IV Catheter Type [Left Peripheral IV Antecubital] Active Medications - Current Medications Current Medications: Generic Name Dose Route Start Last Admin Trade Name Freq PRN Reason Stop Dose Admin Acetaminophen 650 mg 03/01/20 19:17 Acetaminophen 325 Mg Tab PO Q4H PRN Pain MILD(1-3)/Fever >100.5/RAYGOZA Albuterol 2.5 mg 03/01/20 19:17 03/01/20 21:38 Albuterol 2.5 Mg/3 Ml Nebu IH 2.5 mg Q4HRT PRN Administration Shortness Of Breath Ascorbic Acid 1,000 mg 03/03/20 22:00 03/06/20 11:28 Ascorbic Acid 500 Mg Tab PO 1,000 mg BID CORTEZ Administration Cholecalciferol 5,000 unit 03/04/20 10:00 03/06/20 11:29 Cholecalciferol (Vit D3) 5,000 Unit Tab PO 5,000 unit DAILY CORTEZ Administration Famotidine 10 mg 03/01/20 22:00 03/06/20 18:58 Famotidine 10 Mg Tab PO Not Given BID CORTEZ Heparin Sodium (Porcine) 5,000 unit 03/01/20 22:00 03/06/20 11:28 Heparin 5,000 Unit/1 Ml Vial SUB-Q 5,000 unit Q12HR CORTEZ Administration Methylprednisolone Sodium Succinate 40 mg 03/01/20 22:00 03/06/20 18:56 Methylprednisolone Sod Succinate 40 Mg/1 Ml Inj IV 40 mg Q8H CORTEZ Administration Ondansetron HCl 4 mg 03/01/20 19:17 Ondansetron 4 Mg/2 Ml Inj IV Q8H PRN Nausea And Vomiting Sodium Chloride 10 ml 03/01/20 22:00 03/06/20 11:30 Sodium Chloride 0.9% 10 Ml Flush Syringe IV 10 ml BID CORTEZ Administration Sodium Chloride 10 ml 03/01/20 19:17 Sodium Chloride 0.9% 10 Ml Flush Syringe IV PRN PRN LINE FLUSH Sodium Chloride 50 ml 03/04/20 21:00 03/05/20 21:45 Sodium Chloride 0.9% 50 Ml Ivpb IV 03/07/20 21:01 50 ml Q24HR@2100 CORTEZ Administration Zinc Sulfate 220 mg 03/04/20 10:00 03/06/20 11:29 Zinc Sulfate 220 Mg Cap PO 220 mg QDAY CORTEZ Administration
[2020-03-06] MEDS: SODIUM CHLORIDE 0.9% 50 ML IVPB IV SCH (21:22)
[2020-03-06] MEDS: FAMOTIDINE 20 MG TAB PO SCH (23:29)
[2020-03-07] MEDS: methylPREDNISolone Sod Succinate 40 MG/1 ML INJ IV SCH ×3 (05:01→23:17)
[2020-03-07] MEDS: HEPARIN 5,000 UNIT/1 ML VIAL SUB-Q SCH ×2 (10:38→23:11)
[2020-03-07] MEDS: FAMOTIDINE 20 MG TAB PO SCH ×2 (10:38→23:12)
[2020-03-07] MEDS: CHOLECALCIFEROL (VIT D3) 5,000 UNIT TAB PO SCH (10:39)
[2020-03-07] MEDS: ZINC SULFATE 220 MG CAP PO SCH (10:39)
[2020-03-07] MEDS: ASCORBIC ACID 500 MG TAB PO SCH ×2 (10:39→23:12)
--- NOTE | 2020-03-07 20:21 | Progress Note ---
Assessment and Plan Assessment and plan: -- Acute hypoxemic respiratory failure Current Visit: Yes Status: Acute Plan to address problem: Cont Oxygen supplement -- Pneumonia due to COVID-19 virus Current Visit: Yes Status: Acute Plan to address problem: ID following IV steroids, IV remdesivir Inflammatory markers, oxygen Home oxygen evaluation, prone position Anticoagulation per protocol Closely monitor -- Leukopenia Current Visit: Yes Status: Acute Plan to address problem: Secondary to Covid -- Transaminitis Current Visit: Yes Status: Acute Plan to address problem: Secondary to forward --Obesity; BMI 35 Current Visit: Yes Status: Acute Plan to address problem: patient needs weight reduction when medically stable --DVT prophylaxis Current Visit: Yes Status: Acute Plan to address problem: On Lovenox and GI prophylaxis Monitor closely and adjust management as needed Plan of care reviewed with the patient and his nurse Brief history and hospital course: 25 YO Male who is currently an inpatient at [facility] with Depression, Asthma, HLD, Developmental Delay presents to ED for evaluation. Patient reports "feeling 6" over the past 2 days. Patient states that he has experienced fever, dry cough, shortness of breath, body aches, malaise, nausea, multiple loose stools. Patient underwent a coronavirus test on yesterday and was found to be COVID-19 positive. Patient has experienced persistent symptoms over the same timeframe. EMS was notified and upon arrival the patient was found to be in distress and subsequently transported to [facility] for further care and evaluation of the aforementioned symptoms. The patient was seen and evaluated in the emergency department. All lab and imaging studies reviewed. The patient was found to have a pulse oximetry of 87% with exertion which is consistent with acute hypoxemic respiratory failure. The patient underwent chest x-ray and was found to have pneumonia. The patient was admitted to medical floor and initi ated on pneumonia protocol as well as coronavirus protocol. Infectious disease service consulted. Patient denies chills, chest pain, palpitation, skin rash or recent ill contacts. No prior admission for review. No medication listed at time of admission for reconciliation. 03/02/20:Doing well, On 3 liters [place] o2, Smith PCR positive 03/03: Continue oxygen therapy at this time. We will add some vitamins supplementation. A dose of Lasix today. Patient noted to have leukopenia we will continue to monitor closely. Remdesivir was started. Patient requesting for his phone from [facility] and staff to help locate. 03/04: Continue supportive care, Discussed with family Mica Pritchett [phone], anticipate discharge in a day or two. Per family the patient has a hx of SI/HI and was at [place] for the same thing. She reports that this is a monthly thing and has not had an attempt. Will obtain Mental health consult. 03/05: Patient clinically improving. Continue remdesivir and steroids. Discussed with nursing staff they will check room air oxygen today in preparation for discharge within 24 to 48 hours. Psych evaluation pending 03/06; home oxygen evaluation, possible discharge home tomorrow if stable. 03/07; patient is stable for discharge, case management checking with [facility] discharge planning History Interval history: I have seen and examined the patient at the bedside Strict isolation and PPE protocols observed Vital signs noted Room air O2 sats resting and ambulatory more than 92% Hospitalist Physical - Constitutional Vitals: Temp Pulse Resp BP Pulse Ox 98.9 F 69 22 111/54 94 03/07/20 17:03 03/07/20 17:03 03/07/20 17:03 03/07/20 17:03 03/07/20 20:00 General appearance: Present: no acute distress, well-nourished, obese - EENT Eyes: Present: PERRL, EOM intact - Neck Neck: Present: supple, normal ROM - Respiratory Respiratory effort: normal Respiratory: bilateral: diminished, rhonchi, negative: rales, wheezing - Cardiovascular Rhythm: regular Heart Sounds: Present: S1 & S2 - Extremities Extremities: no ischemia, No edema - Abdominal General gastrointestinal: soft, non-tender, non-distended, normal bowel sounds - Integumentary Integumentary: Present: clear, warm - Psychiatric Psychiatric: appropriate mood/affect, cooperative - Neurologic Neurologic: CNII-XII intact, moves all extremities Results - Labs CBC & Chem 7: 03/04/20 06:01 03/04/20 06:01 Labs: Laboratory Last Values WBC 5.8 K/mm3 (4.5-11.0) 03/04/20 06:01 RBC 4.20 M/mm3 (3.65-5.03) 03/04/20 06:01 Hgb 10.9 gm/dl (11.8-15.2) L 03/04/20 06:01 Hct 33.2 % (35.5-45.6) L 03/04/20 06:01 MCV 79 fl (84-94) L 03/04/20 06:01 MCH 26 pg (28-32) L 03/04/20 06:01 MCHC 33 % (32-34) 03/04/20 06:01 RDW 16.4 % (13.2-15.2) H 03/04/20 06:01 Plt Count 274 K/mm3 (140-440) 03/04/20 06:01 Lymph % (Auto) 10.1 % (13.4-35.0) L 03/03/20 15:15 [place] % (Auto) 4.7 % (0.0-7.3) 03/03/20 15:15 Eos % (Auto) 0.0 % (0.0-4.3) 03/03/20 15:15 Baso % (Auto) 0.1 % (0.0-1.8) 03/03/20 15:15 Lymph # (Auto) 0.4 K/mm3 (1.2-5.4) L 03/03/20 15:15 [place] # (Auto) 0.2 K/mm3 (0.0-0.8) 03/03/20 15:15 Eos # (Auto) 0.0 K/mm3 (0.0-0.4) 03/03/20 15:15 Baso # (Auto) 0.0 K/mm3 (0.0-0.1) 03/03/20 15:15 Add Manual Diff Complete 03/02/20 05:31 Total Counted 100 03/02/20 05:31 Seg Neutrophils % 85.1 % (40.0-70.0) H 03/03/20 15:15 Seg Neuts % (Manual) 74.0 % (40.0-70.0) H 03/02/20 05:31 Lymphocytes % (Manual) 23.0 % (13.4-35.0) 03/02/20 05:31 Monocytes % (Manual) 3.0 % (0.0-7.3) 03/02/20 05:31 Nucleated RBC % Not Reportable 03/02/20 05:31 Seg Neutrophils # 3.6 K/mm3 (1.8-7.7) 03/03/20 15:15 Seg Neutrophils # Man 1.3 K/mm3 (1.8-7.7) L 03/02/20 05:31 Band Neutrophils # 0.0 K/mm3 03/02/20 05:31 Lymphocytes # (Manual) 0.4 K/mm3 (1.2-5.4) L 03/02/20 05:31 Abs React Lymphs (Man) 0.0 K/mm3 03/02/20 05:31 Monocytes # (Manual) 0.1 K/mm3 (0.0-0.8) 03/02/20 05:31 Eosinophils # (Manual) 0.0 K/mm3 (0.0-0.4) 03/02/20 05:31 Basophils # (Manual) 0.0 K/mm3 (0.0-0.1) 03/02/20 05:31 Metamyelocytes # 0.0 K/mm3 03/02/20 05:31 Myelocytes # 0.0 K/mm3 03/02/20 05:31 Promyelocytes # 0.0 K/mm3 03/02/20 05:31 Blast Cells # 0.0 K/mm3 03/02/20 05:31 WBC Morphology Not Reportable 03/02/20 05:31 Hypersegmented Neuts Not Reportable 03/02/20 05:31 Hyposegmented Neuts Not Reportable 03/02/20 05:31 Hypogranular Neuts Not Reportable 03/02/20 05:31 Smudge Cells Not Reportable 03/02/20 05:31 Toxic Granulation Not Reportable 03/02/20 05:31 Toxic Vacuolation Not Reportable 03/02/20 05:31 Dohle Bodies Not Reportable 03/02/20 05:31 Pelger-Huet Anomaly Not Reportable 03/02/20 05:31 Gerardo Rods Not Reportable 03/02/20 05:31 Platelet Estimate Consistent w auto 03/02/20 05:31 Clumped Platelets Not Reportable 03/02/20 05:31 Plt Clumps, EDTA Not Reportable 03/02/20 05:31 Large Platelets Not Reportable 03/02/20 05:31 Giant Platelets Not Reportable 03/02/20 05:31 Platelet Satelliting Not Reportable 03/02/20 05:31 Plt Morphology Comment Not Reportable 03/02/20 05:31 RBC Morphology Not Reportable 03/02/20 05:31 Dimorphic RBCs Not Reportable 03/02/20 05:31 Polychromasia Not Reportable 03/02/20 05:31 Hypochromasia 1+ 03/02/20 05:31 Poikilocytosis Not Reportable 03/02/20 05:31 Anisocytosis Not Reportable 03/02/20 05:31 Microcytosis Not Reportable 03/02/20 05:31 Macrocytosis Not Reportable 03/02/20 05:31 Spherocytes Not Reportable 03/02/20 05:31 Pappenheimer Bodies Not Reportable 03/02/20 05:31 Sickle Cells Not Reportable 03/02/20 05:31 Target Cells Not Reportable 03/02/20 05:31 Tear Drop Cells Not Reportable 03/02/20 05:31 Ovalocytes Few 03/02/20 05:31 Helmet Cells Not Reportable 03/02/20 05:31 Aguilar-[place] Bodies Not Reportable 03/02/20 05:31 [place] Rings Not Reportable 03/02/20 05:31 [place] Cells Not Reportable 03/02/20 05:31 Bite Cells Not Reportable 03/02/20 05:31 Crenated Cell Not Reportable 03/02/20 05:31 Elliptocytes Not Reportable 03/02/20 05:31 Acanthocytes (Spur) Not Reportable 03/02/20 05:31 Rouleaux Not Reportable 03/02/20 05:31 Hemoglobin C Crystals Not Reportable 03/02/20 05:31 Schistocytes Not Reportable 03/02/20 05:31 Malaria parasites Not Reportable 03/02/20 05:31 Julio Bodies Not Reportable 03/02/20 05:31 Hem Pathologist Commnt No 03/02/20 05:31 PT 12.2 Sec. (12.2-14.9) 03/01/20 17:20 INR 0.92 (0.87-1.13) 03/01/20 17:20 APTT 30.3 Sec. (24.2-36.6) 03/01/20 17:20 D-Dimer 236.88 ng/mlDDU (0-234) H 03/01/20 17:20 D-Dimer 274.02 ng/mlDDU (0-234) H 03/01/20 17:20 Sodium 144 mmol/L (137-145) 03/04/20 06:01 Potassium 3.9 mmol/L (3.6-5.0) 03/04/20 06:01 Chloride 107.5 mmol/L (98-107) H 03/04/20 06:01 Carbon Dioxide 29 mmol/L (22-30) 03/04/20 06:01 Anion Gap 11 mmol/L 03/04/20 06:01 BUN 12 mg/dL (9-20) 03/04/20 06:01 Creatinine 0.6 mg/dL (0.8-1.3) L 03/04/20 06:01 Estimated GFR > 60 ml/min 03/04/20 06:01 BUN/Creatinine Ratio 20 % 03/04/20 06:01 Glucose 133 mg/dL (75-100) H 03/04/20 06:01 Calcium 8.7 mg/dL (8.4-10.2) 03/04/20 06:01 Ferritin 42.8 ng/mL (30.0-300.0) 03/01/20 17:20 Total Bilirubin 0.20 mg/dL (0.1-1.2) 03/01/20 17:20 Direct Bilirubin < 0.2 mg/dL (0-0.2) 03/01/20 17:20 AST 47 units/L (5-40) H 03/01/20 17:20 ALT 57 units/L (7-56) H 03/01/20 17:20 Alkaline Phosphatase 66 units/L (35-129) 03/01/20 17:20 Lactate Dehydrogenase 202 units/L (91-180) H 03/01/20 17:20 C-Reactive Protein 1.00 mg/dL (0.00-1.30) 03/01/20 17:20 Total Protein 7.7 g/dL (6.3-8.2) 03/01/20 17:20 Albumin 4.2 g/dL (3.9-5) 03/01/20 17:20 Albumin/Globulin Ratio 1.2 % 03/01/20 17:20 Procalcitonin < 0.05 ng/mL (<0.15) 03/01/20 17:20 Coronavirus (PCR) Positive (Negative) A 03/02/20 10:00 Jarvis/IV: Voiding Method Toilet IV Catheter Type [Left Forearm INT / Saline Lock ] IV Catheter Type [Left Peripheral IV Antecubital] Active Medications - Current Medications Current Medications: Generic Name Dose Route Start Last Admin Trade Name Freq PRN Reason Stop Dose Admin Acetaminophen 650 mg 03/01/20 19:17 Acetaminophen 325 Mg Tab PO Q4H PRN Pain MILD(1-3)/Fever >100.5/RAYGOZA Albuterol 2.5 mg 03/01/20 19:17 03/01/20 21:38 Albuterol 2.5 Mg/3 Ml Nebu IH 2.5 mg Q4HRT PRN Administration Shortness Of Breath Ascorbic Acid 1,000 mg 03/03/20 22:00 03/07/20 10:39 Ascorbic Acid 500 Mg Tab PO 1,000 mg BID CORTEZ Administration Cholecalciferol 5,000 unit 03/04/20 10:00 03/07/20 10:39 Cholecalciferol (Vit D3) 5,000 Unit Tab PO 5,000 unit DAILY CORTEZ Administration Famotidine 10 mg 03/06/20 22:00 03/07/20 10:38 Famotidine 20 Mg Tab PO 10 mg BID CORTEZ Administration Heparin Sodium (Porcine) 5,000 unit 03/01/20 22:00 03/07/20 10:38 Heparin 5,000 Unit/1 Ml Vial SUB-Q 5,000 unit Q12HR CORTEZ Administration Methylprednisolone Sodium Succinate 40 mg 03/01/20 22:00 03/07/20 18:14 Methylprednisolone Sod Succinate 40 Mg/1 Ml Inj IV 40 mg Q8H CORTEZ Administration Ondansetron HCl 4 mg 03/01/20 19:17 Ondansetron 4 Mg/2 Ml Inj IV Q8H PRN Nausea And Vomiting Sodium Chloride 10 ml 03/01/20 22:00 03/07/20 10:39 Sodium Chloride 0.9% 10 Ml Flush Syringe IV 10 ml BID CORTEZ Administration Sodium Chloride 10 ml 03/01/20 19:17 Sodium Chloride 0.9% 10 Ml Flush Syringe IV PRN PRN LINE FLUSH Sodium Chloride 50 ml 03/04/20 21:00 03/06/20 21:22 Sodium Chloride 0.9% 50 Ml Ivpb IV 03/07/20 21:01 Not Given Q24HR@2100 CORTEZ Zinc Sulfate 220 mg 03/04/20 10:00 03/07/20 10:39 Zinc Sulfate 220 Mg Cap PO 220 mg QDAY CORTEZ Administration Nutrition/Malnutrition Assess - Dietary Evaluation Nutrition/Malnutrition Findings: Nutrition Notes Start: 03/07/20 14:55 Freq: Status: Active Protocol: Document 03/07/20 14:55 TENA (Rec: 03/07/20 14:59 NHALL [id number]) Nutrition Notes Need for Assessment generated from: LOS Initial or Follow up Brief Note Current Diet Regular Height 5 ft 8 in Weight 138.5 kg [place] Body Weight (kg) 70.00 BMI 46.4 Weight Status Morbidly Obese Subjective/Other Information Pt screened for LOS. He has consumed 90% of meals since admission. Percent of energy/protein needs met: 100% energy 97% pro Burn Absent Trauma Absent Current % PO Good (75-100%) Minimum of two criteria No Is patient on ventilator? No Is Patient Ambulatory and/or Out of Bed Yes REE-(Colbert-St. Jeor-ambulatory/OOB) [ 3034.850 [id number]] Kcal/Kg value to use for calculation 13 Approximate Energy Requirements Using 1801 kcal/Kg Calculation Used for Recommendations Kcal/kg Additional Notes Pro needs 0.8-1g/kg adjBW: 83- 104g/day Fluid needs 1ml/kcal Nutrition Intervention Revisit per MD consult or patient Sign Off request:
[2020-03-07] MEDS: SODIUM CHLORIDE 0.9% 50 ML IVPB IV SCH (23:14)
[2020-03-08] MEDS: methylPREDNISolone Sod Succinate 40 MG/1 ML INJ IV SCH ×3 (06:19→23:10)
--- NOTE | 2020-03-08 08:42 | Discharge Summary ---
Providers - Providers Date of Admission: 03/01/20 19:18 Date of discharge: 03/08/20 Attending physician: PAOLO HERBERT 03/01/20 19:22 Consult to Physician [CONS] Routine Comment: Consulting Provider: MARIANNA YU Physician Instructions: Reason For Exam: pui 03/04/20 11:22 Consult to Mental Health [CONS] Routine Reason For Exam: suicidal ideation Primary care physician: EFFICIENCY MINER Hospitalization Condition: Stable Disposition: DC-30 STILL A PATIENT Exam - Constitutional Vitals: Temp Pulse Resp BP Pulse Ox 97.3 F L 67 19 109/50 93 03/08/20 05:05 03/08/20 05:05 03/08/20 05:05 03/08/20 05:05 03/08/20 05:05 Plan Follow up with: CHERY JAIME MD [Primary Care Provider] - 3-5 Days
[2020-03-08] MEDS: ASCORBIC ACID 500 MG TAB PO SCH ×2 (09:08→22:49)
[2020-03-08] MEDS: ZINC SULFATE 220 MG CAP PO SCH (09:09)
[2020-03-08] MEDS: FAMOTIDINE 20 MG TAB PO SCH ×2 (09:09→22:48)
[2020-03-08] MEDS: CHOLECALCIFEROL (VIT D3) 5,000 UNIT TAB PO SCH (09:09)
[2020-03-08] MEDS: HEPARIN 5,000 UNIT/1 ML VIAL SUB-Q SCH ×2 (09:10→22:49)
--- NOTE | 2020-03-08 18:26 | Progress Note ---
Assessment and Plan Assessment and plan: -- Acute hypoxemic respiratory failure Current Visit: Yes Status: Acute Plan to address problem: Cont Oxygen supplement -- Pneumonia due to COVID-19 virus Current Visit: Yes Status: Acute Plan to address problem: IV steroids, IV remdesivir Inflammatory markers, oxygen Home oxygen evaluation, prone position Anticoagulation per protocol Closely monitor -- Leukopenia Current Visit: Yes Status: Acute Plan to address problem: Secondary to Covid -- Transaminitis Current Visit: Yes Status: Acute Plan to address problem: Secondary to forward --Obesity; BMI 35 Current Visit: Yes Status: Acute Plan to address problem: patient needs weight reduction when medically stable --DVT prophylaxis Current Visit: Yes Status: Acute Plan to address problem: On Lovenox and GI prophylaxis Monitor closely and adjust management as needed Plan of care reviewed with the patient and his nurse Brief history and hospital course: 25 YO Male who is currently an inpatient at [facility] with Depression, Asthma, HLD, Developmental Delay presents to ED for evaluation. Patient reports "feeling 6" over the past 2 days. Patient states that he has experienced fever, dry cough, shortness of breath, body aches, malaise, nausea, multiple loose stools. Patient underwent a coronavirus test on yesterday and was found to be COVID-19 positive. Patient has experienced persistent symptoms over the same timeframe. EMS was notified and upon arrival the patient was found to be in distress and subsequently transported to [facility] for further care and evaluation of the aforementioned symptoms. The patient was seen and evaluated in the emergency department. All lab and imaging studies reviewed. The patient was found to have a pulse oximetry of 87% with exertion which is consistent with acute hypoxemic respiratory failure. The patient underwent chest x-ray and was found to have pneumonia. The patient was admitted to medical floor and initiated on pneumonia protocol as well as coronavirus protocol. Infectious disease service consulted. Patient denies chills, chest pain, palpitation, skin rash or recent ill contacts. No prior admission for review. No medication listed at time of admission for reconciliation. 03/02/20:Doing well, On 3 liters [place] o2, Smith PCR positive 03/03: Continue oxygen therapy at this time. We will add some vitamins sup plementation. A dose of Lasix today. Patient noted to have leukopenia we will continue to monitor closely. Remdesivir was started. Patient requesting for his phone from [facility] and staff to help locate. 03/04: Continue supportive care, Discussed with family Mica Pritchett [phone], anticipate discharge in a day or two. Per family the patient has a hx of SI/HI and was at [facility] for the same thing. She reports that this is a monthly thing and has not had an attempt. Will obtain Mental health consult. 03/05: Patient clinically improving. Continue remdesivir and steroids. Discussed with nursing staff they will check room air oxygen today in preparatio n for discharge within 24 to 48 hours. Psych evaluation pending 03/06; home oxygen evaluation, possible discharge home tomorrow if stable. 03/07; patient is stable for discharge, case management checking with [facility] discharge planning 03/08; patient is initially discharged this morning, however the shelter is not accepting Covid positive patients Case management processing shelter placement placement Resting room air 6-minute walk room air O2 sats more than 92%, no indication for home oxygen History Interval history: I have seen and examined the patient in the room Isolation precautions PPE protocols strictly observed Patient feels better no new complaints Anxious to go home Vital signs noted Hospitalist Physical - Constitutional Vitals: Temp Pulse Resp BP Pulse Ox 97.3 F L 64 20 121/62 91 03/08/20 17:05 03/08/20 17:05 03/08/20 17:05 03/08/20 17:05 03/08/20 17:05 General appearance: Present: mild distress, well-nourished, obese - EENT ENT: other (Not done to reduce risk of transmission) - Neck Neck: Present: other (Not done to reduce risk of transmission) - Respiratory Respiratory effort: other (Not done to reduce risk of transmission) Results - Labs CBC & Chem 7: 03/04/20 06:01 03/04/20 06:01 Labs: Laboratory Last Values WBC 5.8 K/mm3 (4.5-11.0) 03/04/20 06:01 RBC 4.20 M/mm3 (3.65-5.03) 03/04/20 06:01 Hgb 10.9 gm/dl (11.8-15.2) L 03/04/20 06:01 Hct 33.2 % (35.5-45.6) L 03/04/20 06:01 MCV 79 fl (84-94) L 03/04/20 06:01 MCH 26 pg (28-32) L 03/04/20 06:01 MCHC 33 % (32-34) 03/04/20 06:01 RDW 16.4 % (13.2-15.2) H 03/04/20 06:01 Plt Count 274 K/mm3 (140-440) 03/04/20 06:01 Lymph % (Auto) 10.1 % (13.4-35.0) L 03/03/20 15:15 [place] % (Auto) 4.7 % (0.0-7.3) 03/03/20 15:15 Eos % (Auto) 0.0 % (0.0-4.3) 03/03/20 15:15 Baso % (Auto) 0.1 % (0.0-1.8) 03/03/20 15:15 Lymph # (Auto) 0.4 K/mm3 (1.2-5.4) L 03/03/20 15:15 [place] # (Auto) 0.2 K/mm3 (0.0-0.8) 03/03/20 15:15 Eos # (Auto) 0.0 K/mm3 (0.0-0.4) 03/03/20 15:15 Baso # (Auto) 0.0 K/mm3 (0.0-0.1) 03/03/20 15:15 Add Manual Diff Complete 03/02/20 05:31 Total Counted 100 03/02/20 05:31 Seg Neutrophils % 85.1 % (40.0-70.0) H 03/03/20 15:15 Seg Neuts % (Manual) 74.0 % (40.0-70.0) H 03/02/20 05:31 Lymphocytes % (Manual) 23.0 % (13.4-35.0) 03/02/20 05:31 Monocytes % (Manual) 3.0 % (0.0-7.3) 03/02/20 05:31 Nucleated RBC % Not Reportable 03/02/20 05:31 Seg Neutrophils # 3.6 K/mm3 (1.8-7.7) 03/03/20 15:15 Seg Neutrophils # Man 1.3 K/mm3 (1.8-7.7) L 03/02/20 05:31 Band Neutrophils # 0.0 K/mm3 03/02/20 05:31 Lymphocytes # (Manual) 0.4 K/mm3 (1.2-5.4) L 03/02/20 05:31 Abs React Lymphs (Man) 0.0 K/mm3 03/02/20 05:31 Monocytes # (Manual) 0.1 K/mm3 (0.0-0.8) 03/02/20 05:31 Eosinophils # (Manual) 0.0 K/mm3 (0.0-0.4) 03/02/20 05:31 Basophils # (Manual) 0.0 K/mm3 (0.0-0.1) 03/02/20 05:31 Metamyelocytes # 0.0 K/mm3 03/02/20 05:31 Myelocytes # 0.0 K/mm3 03/02/20 05:31 Promyelocytes # 0.0 K/mm3 03/02/20 05:31 Blast Cells # 0.0 K/mm3 03/02/20 05:31 WBC Morphology Not Reportable 03/02/20 05:31 Hypersegmented Neuts Not Reportable 03/02/20 05:31 Hyposegmented Neuts Not Reportable 03/02/20 05:31 Hypogranular Neuts Not Reportable 03/02/20 05:31 Smudge Cells Not Reportable 03/02/20 05:31 Toxic Granulation Not Reportable 03/02/20 05:31 Toxic Vacuolation Not Reportable 03/02/20 05:31 Dohle Bodies Not Reportable 03/02/20 05:31 Pelger-Huet Anomaly Not Reportable 03/02/20 05:31 Gerardo Rods Not Reportable 03/02/20 05:31 Platelet Estimate Consistent w auto 03/02/20 05:31 Clumped Platelets Not Reportable 03/02/20 05:31 Plt Clumps, EDTA Not Reportable 03/02/20 05:31 Large Platelets Not Reportable 03/02/20 05:31 Giant Platelets Not Reportable 03/02/20 05:31 Platelet Satelliting Not Reportable 03/02/20 05:31 Plt Morphology Comment Not Reportable 03/02/20 05:31 RBC Morphology Not Reportable 03/02/20 05:31 Dimorphic RBCs Not Reportable 03/02/20 05:31 Polychromasia Not Reportable 03/02/20 05:31 Hypochromasia 1+ 03/02/20 05:31 Poikilocytosis Not Reportable 03/02/20 05:31 Anisocytosis Not Reportable 03/02/20 05:31 Microcytosis Not Reportable 03/02/20 05:31 Macrocytosis Not Reportable 03/02/20 05:31 Spherocytes Not Reportable 03/02/20 05:31 Pappenheimer Bodies Not Reportable 03/02/20 05:31 Sickle Cells Not Reportable 03/02/20 05:31 Target Cells Not Reportable 03/02/20 05:31 Tear Drop Cells Not Reportable 03/02/20 05:31 Ovalocytes Few 03/02/20 05:31 Helmet Cells Not Reportable 03/02/20 05:31 Aguilar-Nunez Bodies Not Reportable 03/02/20 05:31 [place] Rings Not Reportable 03/02/20 05:31 [place] Cells Not Reportable 03/02/20 05:31 Bite Cells Not Reportable 03/02/20 05:31 Crenated Cell Not Reportable 03/02/20 05:31 Elliptocytes Not Reportable 03/02/20 05:31 Acanthocytes (Spur) Not Reportable 03/02/20 05:31 Rouleaux Not Reportable 03/02/20 05:31 Hemoglobin C Crystals Not Reportable 03/02/20 05:31 Schistocytes Not Reportable 03/02/20 05:31 Malaria parasites Not Reportable 03/02/20 05:31 Julio Bodies Not Reportable 03/02/20 05:31 Hem Pathologist Commnt No 03/02/20 05:31 PT 12.2 Sec. (12.2-14.9) 03/01/20 17:20 INR 0.92 (0.87-1.13) 03/01/20 17:20 APTT 30.3 Sec. (24.2-36.6) 03/01/20 17:20 D-Dimer 236.88 ng/mlDDU (0-234) H 03/01/20 17:20 D-Dimer 274.02 ng/mlDDU (0-234) H 03/01/20 17:20 Sodium 144 mmol/L (137-145) 03/04/20 06:01 Potassium 3.9 mmol/L (3.6-5.0) 03/04/20 06:01 Chloride 107.5 mmol/L (98-107) H 03/04/20 06:01 Carbon Dioxide 29 mmol/L (22-30) 03/04/20 06:01 Anion Gap 11 mmol/L 03/04/20 06:01 BUN 12 mg/dL (9-20) 03/04/20 06:01 Creatinine 0.6 mg/dL (0.8-1.3) L 03/04/20 06:01 Estimated GFR > 60 ml/min 03/04/20 06:01 BUN/Creatinine Ratio 20 % 03/04/20 06:01 Glucose 133 mg/dL (75-100) H 03/04/20 06:01 Calcium 8.7 mg/dL (8.4-10.2) 03/04/20 06:01 Ferritin 42.8 ng/mL (30.0-300.0) 03/01/20 17:20 Total Bilirubin 0.20 mg/dL (0.1-1.2) 03/01/20 17:20 Direct Bilirubin < 0.2 mg/dL (0-0.2) 03/01/20 17:20 AST 47 units/L (5-40) H 03/01/20 17:20 ALT 57 units/L (7-56) H 03/01/20 17:20 Alkaline Phosphatase 66 units/L (35-129) 03/01/20 17:20 Lactate Dehydrogenase 202 units/L (91-180) H 03/01/20 17:20 C-Reactive Protein 1.00 mg/dL (0.00-1.30) 03/01/20 17:20 Total Protein 7.7 g/dL (6.3-8.2) 03/01/20 17:20 Albumin 4.2 g/dL (3.9-5) 03/01/20 17:20 Albumin/Globulin Ratio 1.2 % 03/01/20 17:20 Procalcitonin < 0.05 ng/mL (<0.15) 03/01/20 17:20 Coronavirus (PCR) Positive (Negative) A 03/02/20 10:00 Jarvis/IV: Voiding Method Toilet IV Catheter Type [Right Hand] INT / Saline Lock IV Catheter Type [Left Forearm INT / Saline Lock ] IV Catheter Type [Left Peripheral IV Antecubital] Active Medications - Current Medications Current Medications: Generic Name Dose Route Start Last Admin Trade Name Freq PRN Reason Stop Dose Admin Acetaminophen 650 mg 03/01/20 19:17 Acetaminophen 325 Mg Tab PO Q4H PRN Pain MILD(1-3)/Fever >100.5/RAYGOZA Albuterol 2.5 mg 03/01/20 19:17 03/01/20 21:38 Albuterol 2.5 Mg/3 Ml Nebu IH 2.5 mg Q4HRT PRN Administration Shortness Of Breath Ascorbic Acid 1,000 mg 03/03/20 22:00 03/08/20 09:08 Ascorbic Acid 500 Mg Tab PO 1,000 mg BID CORTEZ Administration Cholecalciferol 5,000 unit 03/04/20 10:00 03/08/20 09:09 Cholecalciferol (Vit D3) 5,000 Unit Tab PO 5,000 unit DAILY CORTEZ Administration Famotidine 10 mg 03/06/20 22:00 03/08/20 09:09 Famotidine 20 Mg Tab PO 10 mg BID CORTEZ Administration Heparin Sodium (Porcine) 5,000 unit 03/01/20 22:00 03/08/20 09:10 Heparin 5,000 Unit/1 Ml Vial SUB-Q 5,000 unit Q12HR CORTEZ Administration Methylprednisolone Sodium Succinate 40 mg 03/01/20 22:00 03/08/20 13:15 Methylprednisolone Sod Succinate 40 Mg/1 Ml Inj IV 40 mg Q8H CORTEZ Administration Ondansetron HCl 4 mg 03/01/20 19:17 Ondansetron 4 Mg/2 Ml Inj IV Q8H PRN Nausea And Vomiting Sodium Chloride 10 ml 03/01/20 22:00 03/08/20 09:11 Sodium Chloride 0.9% 10 Ml Flush Syringe IV 10 ml BID CORTEZ Administration Sodium Chloride 10 ml 03/01/20 19:17 Sodium Chloride 0.9% 10 Ml Flush Syringe IV PRN PRN LINE FLUSH Zinc Sulfate 220 mg 03/04/20 10:00 03/08/20 09:09 Zinc Sulfate 220 Mg Cap PO 220 mg QDAY CORTEZ Administration Nutrition/Malnutrition Assess - Dietary Evaluation Nutrition/Malnutrition Findings: Nutrition Notes Start: 03/07/20 14:55 Freq: Status: Active Protocol: Document 03/07/20 14:55 TENA (Rec: 03/07/20 14:59 TENA [id number]) Nutrition Notes Need for Assessment generated from: LOS Initial or Follow up Brief Note Current Diet Regular Height 5 ft 8 in Weight 138.5 kg [place] Body Weight (kg) 70.00 BMI 46.4 Weight Status Morbidly Obese Subjective/Other Information Pt screened for LOS. He has consumed 90% of meals since admission. Percent of energy/protein needs met: 100% energy 97% pro Burn Absent Trauma Absent Current % PO Good (75-100%) Minimum of two criteria No Is patient on ventilator? No Is Patient Ambulatory and/or Out of Bed Yes REE-([place]-St. Jeor-ambulatory/OOB) [ 3034.850 NUTR.[id number]] Kcal/Kg value to use for calculation 13 Approximate Energy Requirements Using 1801 kcal/Kg Calculation Used for Recommendations Kcal/kg Additional Notes Pro needs 0.8-1g/kg adjBW: 83- 104g/day Fluid needs 1ml/kcal Nutrition Intervention Revisit per MD consult or patient Sign Off request:
[2020-03-09] MEDS: methylPREDNISolone Sod Succinate 40 MG/1 ML INJ IV SCH ×3 (05:40→21:57)
[2020-03-09] MEDS: HEPARIN 5,000 UNIT/1 ML VIAL SUB-Q SCH ×2 (09:21→21:57)
[2020-03-09] MEDS: ZINC SULFATE 220 MG CAP PO SCH (09:22)
[2020-03-09] MEDS: FAMOTIDINE 20 MG TAB PO SCH ×2 (09:22→21:56)
[2020-03-09] MEDS: ASCORBIC ACID 500 MG TAB PO SCH ×2 (09:22→21:56)
[2020-03-09] MEDS: CHOLECALCIFEROL (VIT D3) 5,000 UNIT TAB PO SCH (09:22)
--- NOTE | 2020-03-09 18:21 | Progress Note ---
Assessment and Plan Assessment and plan: --Suicidal thoughts and ideation; Suicidal watch 1013 status Psych consulted Continue supportive care -- Acute hypoxemic respiratory failure Current Visit: Yes Status: Acute Plan to address problem: Cont Oxygen supplement -- Pneumonia due to COVID-19 virus Current Visit: Yes Status: Acute Plan to address problem: IV steroids, IV remdesivir Inflammatory markers, oxygen Home oxygen evaluation, prone position. Anticoagulation per protocol Closely monitor -- Leukopenia Current Visit: Yes Status: Acute Plan to address problem: Secondary to Covid -- Transaminitis Current Visit: Yes Status: Acute Plan to address problem: Secondary to forward --Obesity; BMI 35 Current Visit: Yes Status: Acute Plan to address problem: patient needs weight reduction when medically stable --DVT prophylaxis Current Visit: Yes Status: Acute Plan to address problem: On Lovenox and GI prophylaxis Monitor closely and adjust management as needed Plan of care reviewed with the patient and his nurse Brief history and hospital course: 25 YO Male who is currently an inpatient at [facility] with Depression, Asthma, HLD, Developmental Delay presents to ED for evaluation. Patient reports "feeling 6" over the past 2 days. Patient states that he has experienced fever, dry cough, shortness of breath, body aches, malaise, nausea, multiple loose stools. Patient underwent a coronavirus test on yesterday and was found to be COVID-19 positive. Patient has experienced persistent symptoms over the same timeframe. EMS was notified and upon arrival the patient was found to be in distress and subsequently transported to [facility] for further care and evaluation of the aforementioned symptoms. The patient was seen and evaluated in the emergency department. All lab and imaging studies reviewed. The patient was found to have a pulse oximetry of 87% with exertion which is consistent with acute hypoxemic respiratory failure. The patient underwent chest x-ray and was found to have pneumonia. The patient was admitted to medical floor and initiated on pneumonia protocol as well as coronavirus protocol. Infectious disease service consulted. Patient denies chills, chest pain, palpitation, skin rash or recent ill contacts. No prior admission for review. No medication listed at time of admission for reconciliation. 03/02/20:Doing well, On 3 liters [place] o2, Smith PCR positive 03/03: Continue oxygen therapy at this time. We will add some vitamins supplementation. A dose of Lasix today. Patient noted to have leukopenia we will continue to monitor closely. Remdesivir was started. Patient requesting for his phone from [facility] and staff to help locate. 03/04: Continue supportive care, Discussed with family Mica Pritchett [phone], anticipate discharge in a day or two. Per family the patient has a hx of SI/HI and was at [facility] for the same thing. She reports that this is a monthly thing and has not had an attempt. Will obtain Mental health consult. 03/05: Patient clinically improving. Continue remdesivir and steroids. Discussed with nursing staff they will check room air oxygen today in preparation for discharge within 24 to 48 hours. Psych evaluation pending 03/06; home oxygen evaluation, possible discharge home tomorrow if stable. 03/07; patient is stable for discharge, case management checking with [facility] discharge planning 03/08; patient is initially discharged this morning, however the [facility] is not accepting Covid positive patients Case management processing [facility]dc placement placement Resting room air 6-minute walk room air O2 sats more than 92%, no indication for home oxygen 03/09/2020; suicidal thoughts and ideation, 1013 status, psych consulted, continue supportive care History Interval history: Patient complains of suicidal ideation last night Placed on 1013 status Psych consulted Patient reports that he is tired of not getting discharged Hospitalist Physical - Constitutional Vitals: Temp Pulse Resp BP Pulse Ox 98.8 F 70 17 110/58 93 03/09/20 16:57 03/09/20 16:57 03/09/20 16:57 03/09/20 16:57 03/09/20 16:57 General appearance: Present: mild distress, well-nourished, obese - EENT Eyes: Present: PERRL, EOM intact - Neck Neck: Present: supple, normal ROM - Respiratory Respiratory effort: normal Respiratory: bilateral: diminished, negative: rales, rhonchi, wheezing - Cardiovascular Rhythm: regular Heart Sounds: Present: S1 & S2 - Extremities Extremities: no ischemia, No edema - Abdominal General gastrointestinal: soft, non-tender, non-distended, normal bowel sounds - Integumentary Integumentary: Present: clear, warm - Psychiatric Psychiatric: depressed - Neurologic Neurologic: CNII-XII intact, moves all extremities Results - Labs CBC & Chem 7: 03/04/20 06:01 03/04/20 06:01 Labs: Laboratory Last Values WBC 5.8 K/mm3 (4.5-11.0) 03/04/20 06:01 RBC 4.20 M/mm3 (3.65-5.03) 03/04/20 06:01 Hgb 10.9 gm/dl (11.8-15.2) L 03/04/20 06:01 Hct 33.2 % (35.5-45.6) L 03/04/20 06:01 MCV 79 fl (84-94) L 03/04/20 06:01 MCH 26 pg (28-32) L 03/04/20 06:01 MCHC 33 % (32-34) 03/04/20 06:01 RDW 16.4 % (13.2-15.2) H 03/04/20 06:01 Plt Count 274 K/mm3 (140-440) 03/04/20 06:01 Lymph % (Auto) 10.1 % (13.4-35.0) L 03/03/20 15:15 Eddy % (Auto) 4.7 % (0.0-7.3) 03/03/20 15:15 Eos % (Auto) 0.0 % (0.0-4.3) 03/03/20 15:15 Baso % (Auto) 0.1 % (0.0-1.8) 03/03/20 15:15 Lymph # (Auto) 0.4 K/mm3 (1.2-5.4) L 03/03/20 15:15 Eddy # (Auto) 0.2 K/mm3 (0.0-0.8) 03/03/20 15:15 Eos # (Auto) 0.0 K/mm3 (0.0-0.4) 03/03/20 15:15 Baso # (Auto) 0.0 K/mm3 (0.0-0.1) 03/03/20 15:15 Add Manual Diff Complete 03/02/20 05:31 Total Counted 100 03/02/20 05:31 Seg Neutrophils % 85.1 % (40.0-70.0) H 03/03/20 15:15 Seg Neuts % (Manual) 74.0 % (40.0-70.0) H 03/02/20 05:31 Lymphocytes % (Manual) 23.0 % (13.4-35.0) 03/02/20 05:31 Monocytes % (Manual) 3.0 % (0.0-7.3) 03/02/20 05:31 Nucleated RBC % Not Reportable 03/02/20 05:31 Seg Neutrophils # 3.6 K/mm3 (1.8-7.7) 03/03/20 15:15 Seg Neutrophils # Man 1.3 K/mm3 (1.8-7.7) L 03/02/20 05:31 Band Neutrophils # 0.0 K/mm3 03/02/20 05:31 Lymphocytes # (Manual) 0.4 K/mm3 (1.2-5.4) L 03/02/20 05:31 Abs React Lymphs (Man) 0.0 K/mm3 03/02/20 05:31 Monocytes # (Manual) 0.1 K/mm3 (0.0-0.8) 03/02/20 05:31 Eosinophils # (Manual) 0.0 K/mm3 (0.0-0.4) 03/02/20 05:31 Basophils # (Manual) 0.0 K/mm3 (0.0-0.1) 03/02/20 05:31 Metamyelocytes # 0.0 K/mm3 03/02/20 05:31 Myelocytes # 0.0 K/mm3 03/02/20 05:31 Promyelocytes # 0.0 K/mm3 03/02/20 05:31 Blast Cells # 0.0 K/mm3 03/02/20 05:31 WBC Morphology Not Reportable 03/02/20 05:31 Hypersegmented Neuts Not Reportable 03/02/20 05:31 Hyposegmented Neuts Not Reportable 03/02/20 05:31 Hypogranular Neuts Not Reportable 03/02/20 05:31 Smudge Cells Not Reportable 03/02/20 05:31 Toxic Granulation Not Reportable 03/02/20 05:31 Toxic Vacuolation Not Reportable 03/02/20 05:31 Dohle Bodies Not Reportable 03/02/20 05:31 Pelger-Huet Anomaly Not Reportable 03/02/20 05:31 Gerardo Rods Not Reportable 03/02/20 05:31 Platelet Estimate Consistent w auto 03/02/20 05:31 Clumped Platelets Not Reportable 03/02/20 05:31 Plt Clumps, EDTA Not Reportable 03/02/20 05:31 Large Platelets Not Reportable 03/02/20 05:31 Giant Platelets Not Reportable 03/02/20 05:31 Platelet Satelliting Not Reportable 03/02/20 05:31 Plt Morphology Comment Not Reportable 03/02/20 05:31 RBC Morphology Not Reportable 03/02/20 05:31 Dimorphic RBCs Not Reportable 03/02/20 05:31 Polychromasia Not Reportable 03/02/20 05:31 Hypochromasia 1+ 03/02/20 05:31 Poikilocytosis Not Reportable 03/02/20 05:31 Anisocytosis Not Reportable 03/02/20 05:31 Microcytosis Not Reportable 03/02/20 05:31 Macrocytosis Not Reportable 03/02/20 05:31 Spherocytes Not Reportable 03/02/20 05:31 Pappenheimer Bodies Not Reportable 03/02/20 05:31 Sickle Cells Not Reportable 03/02/20 05:31 Target Cells Not Reportable 03/02/20 05:31 Tear Drop Cells Not Reportable 03/02/20 05:31 Ovalocytes Few 03/02/20 05:31 Helmet Cells Not Reportable 03/02/20 05:31 Aguilar-Malott Bodies Not Reportable 03/02/20 05:31 [place] Rings Not Reportable 03/02/20 05:31 Raymond Cells Not Reportable 03/02/20 05:31 Bite Cells Not Reportable 03/02/20 05:31 Crenated Cell Not Reportable 03/02/20 05:31 Elliptocytes Not Reportable 03/02/20 05:31 Acanthocytes (Spur) Not Reportable 03/02/20 05:31 Rouleaux Not Reportable 03/02/20 05:31 Hemoglobin C Crystals Not Reportable 03/02/20 05:31 Schistocytes Not Reportable 03/02/20 05:31 Malaria parasites Not Reportable 03/02/20 05:31 Julio Bodies Not Reportable 03/02/20 05:31 Hem Pathologist Commnt No 03/02/20 05:31 PT 12.2 Sec. (12.2-14.9) 03/01/20 17:20 INR 0.92 (0.87-1.13) 03/01/20 17:20 APTT 30.3 Sec. (24.2-36.6) 03/01/20 17:20 D-Dimer 236.88 ng/mlDDU (0-234) H 03/01/20 17:20 D-Dimer 274.02 ng/mlDDU (0-234) H 03/01/20 17:20 Sodium 144 mmol/L (137-145) 03/04/20 06:01 Potassium 3.9 mmol/L (3.6-5.0) 03/04/20 06:01 Chloride 107.5 mmol/L (98-107) H 03/04/20 06:01 Carbon Dioxide 29 mmol/L (22-30) 03/04/20 06:01 Anion Gap 11 mmol/L 03/04/20 06:01 BUN 12 mg/dL (9-20) 03/04/20 06:01 Creatinine 0.6 mg/dL (0.8-1.3) L 03/04/20 06:01 Estimated GFR > 60 ml/min 03/04/20 06:01 BUN/Creatinine Ratio 20 % 03/04/20 06:01 Glucose 133 mg/dL (75-100) H 03/04/20 06:01 Calcium 8.7 mg/dL (8.4-10.2) 03/04/20 06:01 Ferritin 42.8 ng/mL (30.0-300.0) 03/01/20 17:20 Total Bilirubin 0.20 mg/dL (0.1-1.2) 03/01/20 17:20 Direct Bilirubin < 0.2 mg/dL (0-0.2) 03/01/20 17:20 AST 47 units/L (5-40) H 03/01/20 17:20 ALT 57 units/L (7-56) H 03/01/20 17:20 Alkaline Phosphatase 66 units/L (35-129) 03/01/20 17:20 Lactate Dehydrogenase 202 units/L (91-180) H 03/01/20 17:20 C-Reactive Protein 1.00 mg/dL (0.00-1.30) 03/01/20 17:20 Total Protein 7.7 g/dL (6.3-8.2) 03/01/20 17:20 Albumin 4.2 g/dL (3.9-5) 03/01/20 17:20 Albumin/Globulin Ratio 1.2 % 03/01/20 17:20 Procalcitonin < 0.05 ng/mL (<0.15) 03/01/20 17:20 Coronavirus (PCR) Positive (Negative) A 03/02/20 10:00 Jarvis/IV: Voiding Method Toilet IV Catheter Type [Right Hand] INT / Saline Lock IV Catheter Type [Left Forearm INT / Saline Lock ] IV Catheter Type [Left Peripheral IV Antecubital] Active Medications - Current Medications Current Medications: Generic Name Dose Route Start Last Admin Trade Name Freq PRN Reason Stop Dose Admin Acetaminophen 650 mg 03/01/20 19:17 Acetaminophen 325 Mg Tab PO Q4H PRN Pain MILD(1-3)/Fever >100.5/RAYGOZA Albuterol 2.5 mg 03/01/20 19:17 03/01/20 21:38 Albuterol 2.5 Mg/3 Ml Nebu IH 2.5 mg Q4HRT PRN Administration Shortness Of Breath Ascorbic Acid 1,000 mg 03/03/20 22:00 03/09/20 09:22 Ascorbic Acid 500 Mg Tab PO 1,000 mg BID CORTEZ Administration Cholecalciferol 5,000 unit 03/04/20 10:00 03/09/20 09:22 Cholecalciferol (Vit D3) 5,000 Unit Tab PO 5,000 unit DAILY CORTEZ Administration Famotidine 10 mg 03/06/20 22:00 03/09/20 09:22 Famotidine 20 Mg Tab PO 10 mg BID CORTEZ Administration Heparin Sodium (Porcine) 5,000 unit 03/01/20 22:00 03/09/20 09:21 Heparin 5,000 Unit/1 Ml Vial SUB-Q 5,000 unit Q12HR CORTEZ Administration Methylprednisolone Sodium Succinate 40 mg 03/01/20 22:00 03/09/20 13:28 Methylprednisolone Sod Succinate 40 Mg/1 Ml Inj IV 40 mg Q8H CORTEZ Administration Ondansetron HCl 4 mg 03/01/20 19:17 Ondansetron 4 Mg/2 Ml Inj IV Q8H PRN Nausea And Vomiting Sodium Chloride 10 ml 03/01/20 22:00 03/09/20 09:22 Sodium Chloride 0.9% 10 Ml Flush Syringe IV 10 ml BID CORTEZ Administration Sodium Chloride 10 ml 03/01/20 19:17 Sodium Chloride 0.9% 10 Ml Flush Syringe IV PRN PRN LINE FLUSH Zinc Sulfate 220 mg 03/04/20 10:00 03/09/20 09:22 Zinc Sulfate 220 Mg Cap PO 220 mg QDAY CORTEZ Administration Nutrition/Malnutrition Assess - Dietary Evaluation Nutrition/Malnutrition Findings: Nutrition Notes Start: 03/07/20 14:55 Freq: Status: Active Protocol: Document 03/07/20 14:55 TENA (Rec: 03/07/20 14:59 NHALL [id number]) Nutrition Notes Need for Assessment generated from: LOS Initial or Follow up Brief Note Current Diet Regular Height 5 ft 8 in Weight 138.5 kg [place] Body Weight (kg) 70.00 BMI 46.4 Weight Status Morbidly Obese Subjective/Other Information Pt screened for LOS. He has consumed 90% of meals since admission. Percent of energy/protein needs met: 100% energy 97% pro Burn Absent Trauma Absent Current % PO Good (75-100%) Minimum of two criteria No Is patient on ventilator? No Is Patient Ambulatory and/or Out of Bed Yes REE-(Graves-St. Jeor-ambulatory/OOB) [ 3034.850 NUTR.[id number]] Kcal/Kg value to use for calculation 13 Approximate Energy Requirements Using 1801 kcal/Kg Calculation Used for Recommendations Kcal/kg Additional Notes Pro needs 0.8-1g/kg adjBW: 83- 104g/day Fluid needs 1ml/kcal Nutrition Intervention Revisit per MD consult or patient Sign Off request:
[2020-03-10] MEDS: methylPREDNISolone Sod Succinate 40 MG/1 ML INJ IV SCH ×3 (05:27→23:11)
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
[2020-03-10] MEDS: ASCORBIC ACID 500 MG TAB PO SCH ×2 (09:47→23:11)
[2020-03-10] MEDS: ZINC SULFATE 220 MG CAP PO SCH (09:48)
[2020-03-10] MEDS: CHOLECALCIFEROL (VIT D3) 5,000 UNIT TAB PO SCH (09:48)
[2020-03-10] MEDS: HEPARIN 5,000 UNIT/1 ML VIAL SUB-Q SCH ×2 (09:48→23:11)
[2020-03-10] MEDS: FAMOTIDINE 20 MG TAB PO SCH ×2 (09:48→23:10)
--- NOTE | 2020-03-10 19:45 | Progress Note ---
Assessment and Plan Assessment and plan: --Suicidal thoughts and ideation; Suicidal watch 1013 status Psych consulted Continue supportive care -- Acute hypoxemic respiratory failure Current Visit: Yes Status: Acute Plan to address problem: Cont Oxygen supplement -- Pneumonia due to COVID-19 virus Current Visit: Yes Status: Acute Plan to address problem: IV steroids, IV remdesivir Inflammatory markers, oxygen Home oxygen evaluation, prone position. Anticoagulation per protocol Closely monitor -- Leukopenia Current Visit: Yes Status: Acute Plan to address problem: Secondary to Covid -- Transaminitis Current Visit: Yes Status: Acute Plan to address problem: Secondary to forward --Obesity; BMI 35 Current Visit: Yes Status: Acute Plan to address problem: patient needs weight reduction when medically stable --DVT prophylaxis Current Visit: Yes Status: Acute Plan to address problem: On Lovenox and GI prophylaxis Monitor closely and adjust management as needed Plan of care reviewed with the patient and his nurse Brief history and hospital course: 25 YO Male who is currently an inpatient at [facility] with Depression, Asthma, HLD, Developmental Delay presents to ED for evaluation. Patient reports "feeling 6" over the past 2 days. Patient states that he has experienced fever, dry cough, shortness of breath, body aches, malaise, nausea, multiple loose stools. Patient underwent a coronavirus test on yesterday and was found to be COVID-19 positive. Patient has experienced persistent symptoms over the same timeframe. EMS was notified and upon arrival the patient was found to be in distress and subsequently transported to [facility] for further care and evaluation of the aforementioned symptoms. The patient was seen and evaluated in the emergency department. All lab and imaging studies reviewed. The patient was found to have a pulse oximetry of 87% with exertion which is consistent with acute hypoxemic respiratory failure. The patient underwent chest x-ray and was found to have pneumonia. The patient was admitted to medical floor and initiated on pneumonia protocol as well as coronavirus protocol. Infectious disease service consulted. Patient denies chills, chest pain, palpitation, skin rash or recent ill contacts. No prior admission for review. No medication listed at time of admission for reconciliation. 03/02/20:Doing well, On 3 liters [place] o2, Smith PCR positive 03/03: Continue oxygen therapy at this time. We will add some vitamins supplementation. A dose of Lasix today. Patient noted to have leukopenia we will continue to monitor closely. Remdesivir was started. Patient requesting for his phone from [facility] and staff to help locate. 03/04: Continue supportive care, Discussed with family Mica Pritchett [phone], anticipate discharge in a day or two. Per family the patient has a hx of SI/HI and was at [facility] for the same thing. She reports that this is a monthly thing and has not had an attempt. Will obtain Mental health consult. 03/05: Patient clinically improving. Continue remdesivir and steroids. Discussed with nursing staff they will check room air oxygen today in preparation for discharge within 24 to 48 hours. Psych evaluation pending 03/06; home oxygen evaluation, possible discharge home tomorrow if stable. 03/07; patient is stable for discharge, case management checking with [facility] discharge planning 03/08; patient is initially discharged this morning, however the care home is not accepting Covid positive patients Case management processing care home placement placement Resting room air 6-minute walk room air O2 sats more than 92%, no indication for home oxygen 03/09/2020; suicidal thoughts and ideation, 1013 status, psych consulted, continue supportive care 03/10/2020; patient has suicidal thoughts and ideation, management per psych, 1013 status Patient is medically stable for discharge. 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/1013 status Psych following Hospitalist Physical - Constitutional Vitals: Temp Pulse Resp BP Pulse Ox 99.0 F 78 22 120/61 96 03/10/20 12:31 03/10/20 12:31 03/10/20 12:31 03/10/20 12:31 03/10/20 12:31 General appearance: Present: mild distress, well-nourished, obese - EENT Eyes: Present: PERRL, EOM intact - Neck Neck: Present: supple, normal ROM - Respiratory Respiratory effort: normal, labored Respiratory: negative: diminished - Cardiovascular Rhythm: regular Heart Sounds: Present: S1 & S2 - Extremities Extremities: no ischemia, No edema - Abdominal General gastrointestinal: soft, non-tender, non-distended, normal bowel sounds - Integumentary Integumentary: Present: clear, warm - Psychiatric Psychiatric: appropriate mood/affect, cooperative - Neurologic Neurologic: CNII-XII intact, moves all extremities Results - Labs CBC & Chem 7: 03/04/20 06:01 03/04/20 06:01 Labs: Laboratory Last Values WBC 5.8 K/mm3 (4.5-11.0) 03/04/20 06:01 RBC 4.20 M/mm3 (3.65-5.03) 03/04/20 06:01 Hgb 10.9 gm/dl (11.8-15.2) L 03/04/20 06:01 Hct 33.2 % (35.5-45.6) L 03/04/20 06:01 MCV 79 fl (84-94) L 03/04/20 06:01 MCH 26 pg (28-32) L 03/04/20 06:01 MCHC 33 % (32-34) 03/04/20 06:01 RDW 16.4 % (13.2-15.2) H 03/04/20 06:01 Plt Count 274 K/mm3 (140-440) 03/04/20 06:01 Lymph % (Auto) 10.1 % (13.4-35.0) L 03/03/20 15:15 Sierra % (Auto) 4.7 % (0.0-7.3) 03/03/20 15:15 Eos % (Auto) 0.0 % (0.0-4.3) 03/03/20 15:15 Baso % (Auto) 0.1 % (0.0-1.8) 03/03/20 15:15 Lymph # (Auto) 0.4 K/mm3 (1.2-5.4) L 03/03/20 15:15 Sierra # (Auto) 0.2 K/mm3 (0.0-0.8) 03/03/20 15:15 Eos # (Auto) 0.0 K/mm3 (0.0-0.4) 03/03/20 15:15 Baso # (Auto) 0.0 K/mm3 (0.0-0.1) 03/03/20 15:15 Add Manual Diff Complete 03/02/20 05:31 Total Counted 100 03/02/20 05:31 Seg Neutrophils % 85.1 % (40.0-70.0) H 03/03/20 15:15 Seg Neuts % (Manual) 74.0 % (40.0-70.0) H 03/02/20 05:31 Lymphocytes % (Manual) 23.0 % (13.4-35.0) 03/02/20 05:31 Monocytes % (Manual) 3.0 % (0.0-7.3) 03/02/20 05:31 Nucleated RBC % Not Reportable 03/02/20 05:31 Seg Neutrophils # 3.6 K/mm3 (1.8-7.7) 03/03/20 15:15 Seg Neutrophils # Man 1.3 K/mm3 (1.8-7.7) L 03/02/20 05:31 Band Neutrophils # 0.0 K/mm3 03/02/20 05:31 Lymphocytes # (Manual) 0.4 K/mm3 (1.2-5.4) L 03/02/20 05:31 Abs React Lymphs (Man) 0.0 K/mm3 03/02/20 05:31 Monocytes # (Manual) 0.1 K/mm3 (0.0-0.8) 03/02/20 05:31 Eosinophils # (Manual) 0.0 K/mm3 (0.0-0.4) 03/02/20 05:31 Basophils # (Manual) 0.0 K/mm3 (0.0-0.1) 03/02/20 05:31 Metamyelocytes # 0.0 K/mm3 03/02/20 05:31 Myelocytes # 0.0 K/mm3 03/02/20 05:31 Promyelocytes # 0.0 K/mm3 03/02/20 05:31 Blast Cells # 0.0 K/mm3 03/02/20 05:31 WBC Morphology Not Reportable 03/02/20 05:31 Hypersegmented Neuts Not Reportable 03/02/20 05:31 Hyposegmented Neuts Not Reportable 03/02/20 05:31 Hypogranular Neuts Not Reportable 03/02/20 05:31 Smudge Cells Not Reportable 03/02/20 05:31 Toxic Granulation Not Reportable 03/02/20 05:31 Toxic Vacuolation Not Reportable 03/02/20 05:31 Dohle Bodies Not Reportable 03/02/20 05:31 Pelger-Huet Anomaly Not Reportable 03/02/20 05:31 Gerardo Rods Not Reportable 03/02/20 05:31 Platelet Estimate Consistent w auto 03/02/20 05:31 Clumped Platelets Not Reportable 03/02/20 05:31 Plt Clumps, EDTA Not Reportable 03/02/20 05:31 Large Platelets Not Reportable 03/02/20 05:31 Giant Platelets Not Reportable 03/02/20 05:31 Platelet Satelliting Not Reportable 03/02/20 05:31 Plt Morphology Comment Not Reportable 03/02/20 05:31 RBC Morphology Not Reportable 03/02/20 05:31 Dimorphic RBCs Not Reportable 03/02/20 05:31 Polychromasia Not Reportable 03/02/20 05:31 Hypochromasia 1+ 03/02/20 05:31 Poikilocytosis Not Reportable 03/02/20 05:31 Anisocytosis Not Reportable 03/02/20 05:31 Microcytosis Not Reportable 03/02/20 05:31 Macrocytosis Not Reportable 03/02/20 05:31 Spherocytes Not Reportable 03/02/20 05:31 Pappenheimer Bodies Not Reportable 03/02/20 05:31 Sickle Cells Not Reportable 03/02/20 05:31 Target Cells Not Reportable 03/02/20 05:31 Tear Drop Cells Not Reportable 03/02/20 05:31 Ovalocytes Few 03/02/20 05:31 Helmet Cells Not Reportable 03/02/20 05:31 [place] Bodies Not Reportable 03/02/20 05:31 Century Rings Not Reportable 03/02/20 05:31 [place] Cells Not Reportable 03/02/20 05:31 Bite Cells Not Reportable 03/02/20 05:31 Crenated Cell Not Reportable 03/02/20 05:31 Elliptocytes Not Reportable 03/02/20 05:31 Acanthocytes (Spur) Not Reportable 03/02/20 05:31 Rouleaux Not Reportable 03/02/20 05:31 Hemoglobin C Crystals Not Reportable 03/02/20 05:31 Schistocytes Not Reportable 03/02/20 05:31 Malaria parasites Not Reportable 03/02/20 05:31 Julio Bodies Not Reportable 03/02/20 05:31 Hem Pathologist Commnt No 03/02/20 05:31 PT 12.2 Sec. (12.2-14.9) 03/01/20 17:20 INR 0.92 (0.87-1.13) 03/01/20 17:20 APTT 30.3 Sec. (24.2-36.6) 03/01/20 17:20 D-Dimer 236.88 ng/mlDDU (0-234) H 03/01/20 17:20 D-Dimer 274.02 ng/mlDDU (0-234) H 03/01/20 17:20 Sodium 144 mmol/L (137-145) 03/04/20 06:01 Potassium 3.9 mmol/L (3.6-5.0) 03/04/20 06:01 Chloride 107.5 mmol/L (98-107) H 03/04/20 06:01 Carbon Dioxide 29 mmol/L (22-30) 03/04/20 06:01 Anion Gap 11 mmol/L 03/04/20 06:01 BUN 12 mg/dL (9-20) 03/04/20 06:01 Creatinine 0.6 mg/dL (0.8-1.3) L 03/04/20 06:01 Estimated GFR > 60 ml/min 03/04/20 06:01 BUN/Creatinine Ratio 20 % 03/04/20 06:01 Glucose 133 mg/dL (75-100) H 03/04/20 06:01 Calcium 8.7 mg/dL (8.4-10.2) 03/04/20 06:01 Ferritin 42.8 ng/mL (30.0-300.0) 03/01/20 17:20 Total Bilirubin 0.20 mg/dL (0.1-1.2) 03/01/20 17:20 Direct Bilirubin < 0.2 mg/dL (0-0.2) 03/01/20 17:20 AST 47 units/L (5-40) H 03/01/20 17:20 ALT 57 units/L (7-56) H 03/01/20 17:20 Alkaline Phosphatase 66 units/L (35-129) 03/01/20 17:20 Lactate Dehydrogenase 202 units/L (91-180) H 03/01/20 17:20 C-Reactive Protein 1.00 mg/dL (0.00-1.30) 03/01/20 17:20 Total Protein 7.7 g/dL (6.3-8.2) 03/01/20 17:20 Albumin 4.2 g/dL (3.9-5) 03/01/20 17:20 Albumin/Globulin Ratio 1.2 % 03/01/20 17:20 Procalcitonin < 0.05 ng/mL (<0.15) 03/01/20 17:20 Coronavirus (PCR) Positive (Negative) A 03/02/20 10:00 Jarvis/IV: Voiding Method Toilet IV Catheter Type [Right Hand] INT / Saline Lock IV Catheter Type [Left Forearm INT / Saline Lock ] IV Catheter Type [Left Peripheral IV Antecubital] Active Medications - Current Medications Current Medications: Generic Name Dose Route Start Last Admin Trade Name Freq PRN Reason Stop Dose Admin Acetaminophen 650 mg 03/01/20 19:17 03/09/20 21:58 Acetaminophen 325 Mg Tab PO 650 mg Q4H PRN Administration Pain MILD(1-3)/Fever >100.5/RAYGOZA Albuterol 2.5 mg 03/01/20 19:17 03/01/20 21:38 Albuterol 2.5 Mg/3 Ml Nebu IH 2.5 mg Q4HRT PRN Administration Shortness Of Breath Ascorbic Acid 1,000 mg 03/03/20 22:00 03/10/20 09:47 Ascorbic Acid 500 Mg Tab PO 1,000 mg BID CORTEZ Administration Cholecalciferol 5,000 unit 03/04/20 10:00 03/10/20 09:48 Cholecalciferol (Vit D3) 5,000 Unit Tab PO 5,000 unit DAILY CORTEZ Administration Famotidine 10 mg 03/06/20 22:00 03/10/20 09:48 Famotidine 20 Mg Tab PO 10 mg BID CORTEZ Administration Heparin Sodium (Porcine) 5,000 unit 03/01/20 22:00 03/10/20 09:48 Heparin 5,000 Unit/1 Ml Vial SUB-Q 5,000 unit Q12HR CORTEZ Administration Methylprednisolone Sodium Succinate 40 mg 03/01/20 22:00 03/10/20 16:56 Methylprednisolone Sod Succinate 40 Mg/1 Ml Inj IV 40 mg Q8H CORTEZ Administration Ondansetron HCl 4 mg 03/01/20 19:17 Ondansetron 4 Mg/2 Ml Inj IV Q8H PRN Nausea And Vomiting Sodium Chloride 10 ml 03/01/20 22:00 03/10/20 09:49 Sodium Chloride 0.9% 10 Ml Flush Syringe IV 10 ml BID CORTEZ Administration Sodium Chloride 10 ml 03/01/20 19:17 Sodium Chloride 0.9% 10 Ml Flush Syringe IV PRN PRN LINE FLUSH Zinc Sulfate 220 mg 03/04/20 10:00 03/10/20 09:48 Zinc Sulfate 220 Mg Cap PO 220 mg QDAY CORTEZ Administration Nutrition/Malnutrition Assess - Dietary Evaluation Nutrition/Malnutrition Findings: Nutrition Notes Start: 03/07/20 14:55 Freq: Status: Active Protocol: Document 03/07/20 14:55 TENA (Rec: 03/07/20 14:59 TENA [id number]) Nutrition Notes Need for Assessment generated from: LOS Initial or Follow up Brief Note Current Diet Regular Height 5 ft 8 in Weight 138.5 kg [place] Body Weight (kg) 70.00 BMI 46.4 Weight Status Morbidly Obese Subjective/Other Information Pt screened for LOS. He has consumed 90% of meals since admission. Percent of energy/protein needs met: 100% energy 97% pro Burn Absent Trauma Absent Current % PO Good (75-100%) Minimum of two criteria No Is patient on ventilator? No Is Patient Ambulatory and/or Out of Bed Yes REE-(Humphreys-St. Jeor-ambulatory/OOB) [ 3034.850 NUTR.[id number]] Kcal/Kg value to use for calculation 13 Approximate Energy Requirements Using 1801 kcal/Kg Calculation Used for Recommendations Kcal/kg Additional Notes Pro needs 0.8-1g/kg adjBW: 83- 104g/day Fluid needs 1ml/kcal Nutrition Intervention Revisit per MD consult or patient Sign Off request:
[2020-03-11] MEDS: methylPREDNISolone Sod Succinate 40 MG/1 ML INJ IV SCH ×3 (05:35→22:54)
--- NOTE | 2020-03-11 09:39 | Progress Note ---
Subjective - Reason for Consult Consult date: 03/11/20 Reason for consult: SI - Chief Complaint Chief complaint: During my interview, the patient was sitting up in bed. He is a/o x 3. He at times smiles inappropriately. He verbalizes suicidal thoughts for about 10 days. he says he lost his mom about 4 years ago and having a lot of thoughts about her. The patient denies having a plan to commit suicide. He denies hallucination of any kind now, but states at the [facility] he was hearing voices. He denies them telling him to hurt himself. REVIEW OF SYSTEMS Constitutional: Negative for weight loss ENT: Negative for stridor Respiratory: Negative for cough or hemoptysis All other systems reviewed and are negative MENTAL STATUS EXAMINATION General Appearance and Behavior: dressed appropriately, calm and cooperative Cooperation: Participating/engaged Psychomotor Behavior: unremarkable and within normal limits Mood: "okay" Affect and affective range: congruent with mood, smiles inappropriately Thought Process: Fluent/Logical Thought Content: Within reality, Speech: Normal volume, Regular rate and rhythm, Intellectual Functioning: Average Suicidal Ideation: Yes Homicidal Ideation: Denies HI Insight and Judgment: Limited insight and judgment, Memory: Limited Attention: Normal Orientation: Alert, oriented, Assessment and Plan (1) Bipolar 2 disorder, major depressive episode (F31.81) Current Visit: Yes Status: Acute Treatment Plan Start zoloft 25mg po daily Start Trazodone 50mg po qhs Start Abilify 5mg po daily Risks, benefits and alternatives of medications discussed with the patient, questions answered and consent obtained from patient. PSYCHOTHERAPY: Supportive psychotherapy provided MEDICAL: Per primary team DELIRIUM PRECAUTIONS: Please re-orient patient frequently, keep lights on during the day, and minimize benzodiazepines and opiates as these medications could worsen patient's confusion. GLASS BREAKER: Defer to primary DISPOSITION: Recommend acute inpatient psychiatric hospitalization at this time. LEGAL STATUS: 1013 FOLLOW-UP: Will follow Thank you for the consult. Please contact with any questions and/or concerns. Case discussed with Dr. Hernandez who agrees with current disposition. Mental Status Exam - Vital signs Last Vital Signs Temp 98.4 F 03/11/20 05:49 Pulse 71 03/11/20 05:49 Resp 18 03/11/20 05:49 BP 123/72 03/11/20 05:49 Pulse Ox 94 03/11/20 05:49
[2020-03-11] MEDS: ARIPiprazole 5 MG TAB PO SCH (11:16)
[2020-03-11] MEDS: FAMOTIDINE 20 MG TAB PO SCH ×2 (11:16→22:47)
[2020-03-11] MEDS: CHOLECALCIFEROL (VIT D3) 5,000 UNIT TAB PO SCH (11:18)
[2020-03-11] MEDS: ZINC SULFATE 220 MG CAP PO SCH (11:18)
[2020-03-11] MEDS: SERTRALINE 25 MG TAB PO SCH (11:18)
[2020-03-11] MEDS: ASCORBIC ACID 500 MG TAB PO SCH ×2 (11:18→22:49)
[2020-03-11] MEDS: HEPARIN 5,000 UNIT/1 ML VIAL SUB-Q SCH ×2 (11:19→22:47)
--- NOTE | 2020-03-11 12:13 | Progress Note ---
Assessment and Plan Assessment and plan: --Suicidal thoughts and ideation; Suicidal watch 1013 status Psych consulted Continue supportive care -- Acute hypoxemic respiratory failure Current Visit: Yes Status: Acute Plan to address problem: Cont Oxygen supplement -- Pneumonia due to COVID-19 virus Current Visit: Yes Status: Acute Plan to address problem: IV steroids, IV remdesivir Inflammatory markers, oxygen Home oxygen evaluation, prone position. Anticoagulation per protocol Closely monitor -- Leukopenia Current Visit: Yes Status: Acute Plan to address problem: Secondary to Covid -- Transaminitis Current Visit: Yes Status: Acute Plan to address problem: Secondary to forward --Obesity; BMI 35 Current Visit: Yes Status: Acute Plan to address problem: patient needs weight reduction when medically stable --DVT prophylaxis Current Visit: Yes Status: Acute Plan to address problem: On Lovenox and GI prophylaxis Monitor closely and adjust management as needed Plan of care reviewed with the patient and his nurse Brief history and hospital course: 25 YO Male who is currently an inpatient at [facility] with Depression, Asthma, HLD, Developmental Delay presents to ED for evaluation. Patient reports "feeling 6" over the past 2 days. Patient states that he has experienced fever, dry cough, shortness of breath, body aches, malaise, nausea, multiple loose stools. Patient underwent a coronavirus test on yesterday and was found to be COVID-19 positive. Patient has experienced persistent symptoms over the same timeframe. EMS was notified and upon arrival the patient was found to be in distress and subsequently transported to [facility] for further care and evaluation of the aforementioned symptoms. The patient was seen and evaluated in the emergency department. All lab and imaging studies reviewed. The patient was found to have a pulse oximetry of 87% with exertion which is consistent with acute hypoxemic respiratory failure. The patient underwent chest x-ray and was found to have pneumonia. The patient was admitted to medical floor and initiated on pneumonia protocol as well as coronavirus protocol. Infectious disease service consulted. Patient denies chills, chest pain, palpitation, skin rash or recent ill contacts. No prior admission for review. No medication listed at time of admission for reconciliation. 03/02/20:Doing well, On 3 liters [place] o2, Smith PCR positive 03/03: Continue oxygen therapy at this time. We will add some vitamins supplementation. A dose of Lasix today. Patient noted to have leukopenia we will continue to monitor closely. Remdesivir was started. Patient requesting for his phone from [facility] and staff to help locate. 03/04: Continue supportive care, Discussed with family Mica Pritchett [phone], anticipate discharge in a day or two. Per family the patient has a hx of SI/HI and was at [facility] for the same thing. She reports that this is a monthly thing and has not had an attempt. Will obtain Mental health consult. 03/05: Patient clinically improving. Continue remdesivir and steroids. Discussed with nursing staff they will check room air oxygen today in preparation for discharge within 24 to 48 hours. Psych evaluation pending 03/06; home oxygen evaluation, possible discharge home tomorrow if stable. 03/07; patient is stable for discharge, case management checking with [facility] discharge planning 03/08; patient is initially discharged this morning, however [facility] not accepting [facility] Case management processing [facility] placement placement Resting room air 6-minute walk room air O2 sats more than 92%, no indication for home oxygen 03/09/2020; suicidal thoughts and ideation, 1013 status, psych consulted, continue supportive care 03/10/2020; patient has suicidal thoughts and ideation, management per psych, 1013 status Patient is medically stable for discharge. 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/at the bedside Hospitalist Physical - Constitutional Vitals: Temp Pulse Resp BP Pulse Ox 98.5 F 69 18 114/60 95 03/11/20 11:16 03/11/20 11:16 03/11/20 11:16 03/11/20 11:16 03/11/20 11:16 General appearance: Present: mild distress, well-nourished, obese - EENT Eyes: Present: PERRL, EOM intact - Neck Neck: Present: supple, normal ROM - Respiratory Respiratory effort: normal Respiratory: bilateral: diminished, rhonchi, negative: rales, wheezing - Cardiovascular Rhythm: regular Heart Sounds: Present: S1 & S2 - Extremities Extremities: no ischemia, No edema - Abdominal General gastrointestinal: soft, non-tender, non-distended, normal bowel sounds - Integumentary Integumentary: Present: clear, warm - Psychiatric Psychiatric: appropriate mood/affect, cooperative - Neurologic Neurologic: moves all extremities Results - Labs CBC & Chem 7: 03/04/20 06:01 03/04/20 06:01 Labs: Laboratory Last Values WBC 5.8 K/mm3 (4.5-11.0) 03/04/20 06:01 RBC 4.20 M/mm3 (3.65-5.03) 03/04/20 06:01 Hgb 10.9 gm/dl (11.8-15.2) L 03/04/20 06:01 Hct 33.2 % (35.5-45.6) L 03/04/20 06:01 MCV 79 fl (84-94) L 03/04/20 06:01 MCH 26 pg (28-32) L 03/04/20 06:01 MCHC 33 % (32-34) 03/04/20 06:01 RDW 16.4 % (13.2-15.2) H 03/04/20 06:01 Plt Count 274 K/mm3 (140-440) 03/04/20 06:01 Lymph % (Auto) 10.1 % (13.4-35.0) L 03/03/20 15:15 [place] % (Auto) 4.7 % (0.0-7.3) 03/03/20 15:15 Eos % (Auto) 0.0 % (0.0-4.3) 03/03/20 15:15 Baso % (Auto) 0.1 % (0.0-1.8) 03/03/20 15:15 Lymph # (Auto) 0.4 K/mm3 (1.2-5.4) L 03/03/20 15:15 [place] # (Auto) 0.2 K/mm3 (0.0-0.8) 03/03/20 15:15 Eos # (Auto) 0.0 K/mm3 (0.0-0.4) 03/03/20 15:15 Baso # (Auto) 0.0 K/mm3 (0.0-0.1) 03/03/20 15:15 Add Manual Diff Complete 03/02/20 05:31 Total Counted 100 03/02/20 05:31 Seg Neutrophils % 85.1 % (40.0-70.0) H 03/03/20 15:15 Seg Neuts % (Manual) 74.0 % (40.0-70.0) H 03/02/20 05:31 Lymphocytes % (Manual) 23.0 % (13.4-35.0) 03/02/20 05:31 Monocytes % (Manual) 3.0 % (0.0-7.3) 03/02/20 05:31 Nucleated RBC % Not Reportable 03/02/20 05:31 Seg Neutrophils # 3.6 K/mm3 (1.8-7.7) 03/03/20 15:15 Seg Neutrophils # Man 1.3 K/mm3 (1.8-7.7) L 03/02/20 05:31 Band Neutrophils # 0.0 K/mm3 03/02/20 05:31 Lymphocytes # (Manual) 0.4 K/mm3 (1.2-5.4) L 03/02/20 05:31 Abs React Lymphs (Man) 0.0 K/mm3 03/02/20 05:31 Monocytes # (Manual) 0.1 K/mm3 (0.0-0.8) 03/02/20 05:31 Eosinophils # (Manual) 0.0 K/mm3 (0.0-0.4) 03/02/20 05:31 Basophils # (Manual) 0.0 K/mm3 (0.0-0.1) 03/02/20 05:31 Metamyelocytes # 0.0 K/mm3 03/02/20 05:31 Myelocytes # 0.0 K/mm3 03/02/20 05:31 Promyelocytes # 0.0 K/mm3 03/02/20 05:31 Blast Cells # 0.0 K/mm3 03/02/20 05:31 WBC Morphology Not Reportable 03/02/20 05:31 Hypersegmented Neuts Not Reportable 03/02/20 05:31 Hyposegmented Neuts Not Reportable 03/02/20 05:31 Hypogranular Neuts Not Reportable 03/02/20 05:31 Smudge Cells Not Reportable 03/02/20 05:31 Toxic Granulation Not Reportable 03/02/20 05:31 Toxic Vacuolation Not Reportable 03/02/20 05:31 Dohle Bodies Not Reportable 03/02/20 05:31 Pelger-Huet Anomaly Not Reportable 03/02/20 05:31 Gerardo Rods Not Reportable 03/02/20 05:31 Platelet Estimate Consistent w auto 03/02/20 05:31 Clumped Platelets Not Reportable 03/02/20 05:31 Plt Clumps, EDTA Not Reportable 03/02/20 05:31 Large Platelets Not Reportable 03/02/20 05:31 Giant Platelets Not Reportable 03/02/20 05:31 Platelet Satelliting Not Reportable 03/02/20 05:31 Plt Morphology Comment Not Reportable 03/02/20 05:31 RBC Morphology Not Reportable 03/02/20 05:31 Dimorphic RBCs Not Reportable 03/02/20 05:31 Polychromasia Not Reportable 03/02/20 05:31 Hypochromasia 1+ 03/02/20 05:31 Poikilocytosis Not Reportable 03/02/20 05:31 Anisocytosis Not Reportable 03/02/20 05:31 Microcytosis Not Reportable 03/02/20 05:31 Macrocytosis Not Reportable 03/02/20 05:31 Spherocytes Not Reportable 03/02/20 05:31 Pappenheimer Bodies Not Reportable 03/02/20 05:31 Sickle Cells Not Reportable 03/02/20 05:31 Target Cells Not Reportable 03/02/20 05:31 Tear Drop Cells Not Reportable 03/02/20 05:31 Ovalocytes Few 03/02/20 05:31 Helmet Cells Not Reportable 03/02/20 05:31 Aguilar-[place] Bodies Not Reportable 03/02/20 05:31 [place] Rings Not Reportable 03/02/20 05:31 Rice Cells Not Reportable 03/02/20 05:31 Bite Cells Not Reportable 03/02/20 05:31 Crenated Cell Not Reportable 03/02/20 05:31 Elliptocytes Not Reportable 03/02/20 05:31 Acanthocytes (Spur) Not Reportable 03/02/20 05:31 Rouleaux Not Reportable 03/02/20 05:31 Hemoglobin C Crystals Not Reportable 03/02/20 05:31 Schistocytes Not Reportable 03/02/20 05:31 Malaria parasites Not Reportable 03/02/20 05:31 Julio Bodies Not Reportable 03/02/20 05:31 Hem Pathologist Commnt No 03/02/20 05:31 PT 12.2 Sec. (12.2-14.9) 03/01/20 17:20 INR 0.92 (0.87-1.13) 03/01/20 17:20 APTT 30.3 Sec. (24.2-36.6) 03/01/20 17:20 D-Dimer 236.88 ng/mlDDU (0-234) H 03/01/20 17:20 D-Dimer 274.02 ng/mlDDU (0-234) H 03/01/20 17:20 Sodium 144 mmol/L (137-145) 03/04/20 06:01 Potassium 3.9 mmol/L (3.6-5.0) 03/04/20 06:01 Chloride 107.5 mmol/L (98-107) H 03/04/20 06:01 Carbon Dioxide 29 mmol/L (22-30) 03/04/20 06:01 Anion Gap 11 mmol/L 03/04/20 06:01 BUN 12 mg/dL (9-20) 03/04/20 06:01 Creatinine 0.6 mg/dL (0.8-1.3) L 03/04/20 06:01 Estimated GFR > 60 ml/min 03/04/20 06:01 BUN/Creatinine Ratio 20 % 03/04/20 06:01 Glucose 133 mg/dL (75-100) H 03/04/20 06:01 Calcium 8.7 mg/dL (8.4-10.2) 03/04/20 06:01 Ferritin 42.8 ng/mL (30.0-300.0) 03/01/20 17:20 Total Bilirubin 0.20 mg/dL (0.1-1.2) 03/01/20 17:20 Direct Bilirubin < 0.2 mg/dL (0-0.2) 03/01/20 17:20 AST 47 units/L (5-40) H 03/01/20 17:20 ALT 57 units/L (7-56) H 03/01/20 17:20 Alkaline Phosphatase 66 units/L (35-129) 03/01/20 17:20 Lactate Dehydrogenase 202 units/L (91-180) H 03/01/20 17:20 C-Reactive Protein 1.00 mg/dL (0.00-1.30) 03/01/20 17:20 Total Protein 7.7 g/dL (6.3-8.2) 03/01/20 17:20 Albumin 4.2 g/dL (3.9-5) 03/01/20 17:20 Albumin/Globulin Ratio 1.2 % 03/01/20 17:20 Procalcitonin < 0.05 ng/mL (<0.15) 03/01/20 17:20 Coronavirus (PCR) Positive (Negative) A 03/02/20 10:00 Jarvis/IV: Voiding Method Toilet IV Catheter Type [Right Hand] INT / Saline Lock IV Catheter Type [Left Forearm INT / Saline Lock ] IV Catheter Type [Left Peripheral IV Antecubital] Active Medications - Current Medications Current Medications: Generic Name Dose Route Start Last Admin Trade Name Freq PRN Reason Stop Dose Admin Acetaminophen 650 mg 03/01/20 19:17 03/09/20 21:58 Acetaminophen 325 Mg Tab PO 650 mg Q4H PRN Administration Pain MILD(1-3)/Fever >100.5/RAYGOZA Albuterol 2.5 mg 03/01/20 19:17 03/01/20 21:38 Albuterol 2.5 Mg/3 Ml Nebu IH 2.5 mg Q4HRT PRN Administration Shortness Of Breath Aripiprazole 5 mg 03/11/20 10:00 03/11/20 11:16 Aripiprazole 5 Mg Tab PO 5 mg QDAY CORTEZ Administration Ascorbic Acid 1,000 mg 03/03/20 22:00 03/11/20 11:18 Ascorbic Acid 500 Mg Tab PO 1,000 mg BID CORTEZ Administration Cholecalciferol 5,000 unit 03/04/20 10:00 03/11/20 11:18 Cholecalciferol (Vit D3) 5,000 Unit Tab PO 5,000 unit DAILY CORTEZ Administration Famotidine 10 mg 03/06/20 22:00 03/11/20 11:16 Famotidine 20 Mg Tab PO 10 mg BID CORTEZ Administration Heparin Sodium (Porcine) 5,000 unit 03/01/20 22:00 03/11/20 11:19 Heparin 5,000 Unit/1 Ml Vial SUB-Q 5,000 unit Q12HR CORTEZ Administration Methylprednisolone Sodium Succinate 40 mg 03/01/20 22:00 03/11/20 05:35 Methylprednisolone Sod Succinate 40 Mg/1 Ml Inj IV 40 mg Q8H CORTEZ Administration Ondansetron HCl 4 mg 03/01/20 19:17 Ondansetron 4 Mg/2 Ml Inj IV Q8H PRN Nausea And Vomiting Sertraline HCl 25 mg 03/11/20 10:00 03/11/20 11:18 Sertraline 25 Mg Tab PO 25 mg QDAY CORTEZ Administration Sodium Chloride 10 ml 03/01/20 22:00 03/11/20 11:19 Sodium Chloride 0.9% 10 Ml Flush Syringe IV 10 ml BID CORTEZ Administration Sodium Chloride 10 ml 03/01/20 19:17 Sodium Chloride 0.9% 10 Ml Flush Syringe IV PRN PRN LINE FLUSH Trazodone HCl 50 mg 03/11/20 22:00 Trazodone 50 Mg Tab PO QHS CORTEZ Zinc Sulfate 220 mg 03/04/20 10:00 03/11/20 11:18 Zinc Sulfate 220 Mg Cap PO 220 mg QDAY CORTEZ Administration Nutrition/Malnutrition Assess - Dietary Evaluation Nutrition/Malnutrition Findings: Nutrition Notes Start: 03/07/20 14:55 Freq: Status: Active Protocol: Document 03/07/20 14:55 [facility] (Rec: 03/07/20 14:59 [facility] [id number]) Nutrition Notes Need for Assessment generated from: LOS Initial or Follow up Brief Note Current Diet Regular Height 5 ft 8 in Weight 138.5 kg [place] Body Weight (kg) 70.00 BMI 46.4 Weight Status Morbidly Obese Subjective/Other Information Pt screened for LOS. He has consumed 90% of meals since admission. Percent of energy/protein needs met: 100% energy 97% pro Burn Absent Trauma Absent Current % PO Good (75-100%) Minimum of two criteria No Is patient on ventilator? No Is Patient Ambulatory and/or Out of Bed Yes REE-([place] or-ambulatory/OOB) [ 3034.850 [id number]] Kcal/Kg value to use for calculation 13 Approximate Energy Requirements Using 1801 kcal/Kg Calculation Used for Recommendations Kcal/kg Additional Notes Pro needs 0.8-1g/kg adjBW: 83- 104g/day Fluid needs 1ml/kcal Nutrition Intervention Revisit per MD consult or patient Sign Off request:
[2020-03-11] MEDS: traZODone 50 MG TAB PO SCH (22:47)
[2020-03-12] MEDS: methylPREDNISolone Sod Succinate 40 MG/1 ML INJ IV SCH ×3 (06:08→21:46)
[2020-03-12] MEDS: ZINC SULFATE 220 MG CAP PO SCH (10:56)
[2020-03-12] MEDS: FAMOTIDINE 20 MG TAB PO SCH ×2 (10:56→21:39)
[2020-03-12] MEDS: ARIPiprazole 5 MG TAB PO SCH (10:56)
[2020-03-12] MEDS: ASCORBIC ACID 500 MG TAB PO SCH ×2 (10:56→21:41)
[2020-03-12] MEDS: SERTRALINE 25 MG TAB PO SCH (10:56)
[2020-03-12] MEDS: HEPARIN 5,000 UNIT/1 ML VIAL SUB-Q SCH ×2 (10:57→21:39)
[2020-03-12] MEDS: CHOLECALCIFEROL (VIT D3) 5,000 UNIT TAB PO SCH (10:57)
--- NOTE | 2020-03-12 10:57 | Progress Note ---
Assessment and Plan Assessment and plan: --Suicidal thoughts and ideation; Current Visit: Yes Status: Acute Plan to address problem: Resolved, 1013 rescinded Patient does not need to be transferred to inpatient psych facility Stable for discharge to custodial versus home with home health -- Acute hypoxemic respiratory failure Current Visit: Yes Status: Acute Plan to address problem: Cont Oxygen supplement -- Pneumonia due to COVID-19 virus Current Visit: Yes Status: Acute Plan to address problem: IV steroids, IV remdesivir Inflammatory markers, oxygen Home oxygen evaluation, prone position. Anticoagulation per protocol Closely monitor -- Leukopenia Current Visit: Yes Status: Acute Plan to address problem: Secondary to Covid -- Transaminitis Current Visit: Yes Status: Acute Plan to address problem: Secondary to forward --Obesity; BMI 35 Current Visit: Yes Status: Acute Plan to address problem: patient needs weight reduction when medically stable --DVT prophylaxis Current Visit: Yes Status: Acute Plan to address problem: On Lovenox and GI prophylaxis Monitor closely and adjust management as needed Plan of care reviewed with the patient and his nurse Brief history and hospital course: 25 YO Male who is currently an inpatient at [facility] with Depression, Asthma, HLD, Developmental Delay presents to ED for evaluation. Patient reports "feeling 6" over the past 2 days. Patient states that he has experienced fever, dry cough, shortness of breath, body aches, malaise, nausea, multiple loose stools. Patient underwent a coronavirus test on yesterday and was found to be COVID-19 positive. Patient has experienced persistent symptoms over the same timeframe. EMS was notified and upon arrival the patient was found to be in distress and subsequently transported to [facility] for further care and evaluation of the aforementioned symptoms. The patient was seen and evaluated in the emergency department. All lab and imaging studies reviewed. The patient was fo und to have a pulse oximetry of 87% with exertion which is consistent with acute hypoxemic respiratory failure. The patient underwent chest x-ray and was found to have pneumonia. The patient was admitted to medical floor and initiated on pneumonia protocol as well as coronavirus protocol. Infectious disease service consulted. Patient denies chills, chest pain, palpitation, skin rash or recent ill contacts. No prior admission for review. No medication listed at time of admission for reconciliation. 03/02/20:Doing well, On 3 liters [place] o2, Smith PCR positive 03/03: Continue oxygen therapy at this time. We will add some vitamins supplementation. A dose of Lasix today. Patient noted to have leukopenia we will continue to monitor closely. Remdesivir was started. Patient requesting for his phone from [facility] and staff to help locate. 03/04: Continue supportive care, Discussed with family Mica Pritchett [phone], anticipate discharge in a day or two. Per family the patient has a hx of SI/HI and was at [facility] for the same thing. She reports that this is a monthly thing and has not had an attempt. Will obtain Mental health consult. 03/05: Patient clinically improving. Continue remdesivir and steroids. Discussed with nursing staff they will check room air oxygen today in preparation for discharge within 24 to 48 hours. Psych evaluation pending 03/06; home oxygen evaluation, possible discharge home tomorrow if stable. 03/07; patient is stable for discharge, case management checking with [facility] discharge planning 03/08; patient is initially discharged this morning, however the custodial is not accepting Covid positive patients Case management processing custodial placement placement Resting room air 6-minute walk room air O2 sats more than 92%, no indication for home oxygen 03/09/2020; suicidal thoughts and ideation, 1013 status, psych consulted, continue supportive care 03/10/2020; patient has suicidal thoughts and ideation, management per psych, 1013 status Patient is medically stable for discharge. 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 nurse, public safety telecommunicator at the bedside History Interval history: Seen and examined the patient at the bedside Patient is on 1013 status Awaiting placement inpatient psych Vital signs noted Contact isolation and PPE protocols strictly followed Hospitalist Physical - Physical exam Narrative exam: I have seen the patient in his room from a distance Physical examination not performed to reduce the risk of disease transmission - Constitutional Vitals: Temp Pulse Resp BP Pulse Ox 97.6 F 56 L 18 105/58 95 03/12/20 04:09 03/12/20 04:11 03/12/20 04:09 03/12/20 04:11 03/12/20 04:11 General appearance: Present: mild distress, well-nourished, obese - EENT ENT: other (not performed to reduce the risk of disease transmission) - Neck Neck: Present: other (not performed to reduce the risk of disease transmission) - Respiratory Respiratory effort: other (not performed to reduce the risk of disease transmission) - Extremities Extremity abnormal: other (not performed to reduce the risk of disease transmission) - Abdominal General gastrointestinal: other (not performed to reduce the risk of disease transmission) - Psychiatric Psychiatric: other (not performed to reduce the risk of disease transmission) - Neurologic Neurologic: other (not performed to reduce the risk of disease transmission) Results - Labs CBC & Chem 7: 03/04/20 06:01 03/04/20 06:01 Labs: Laboratory Last Values WBC 5.8 K/mm3 (4.5-11.0) 03/04/20 06: RBC 4.20 M/mm3 (3.65-5.03) 03/04/20 06: Hgb 10.9 gm/dl (11.8-15.2) L 03/04/20 06: Hct 33.2 % (35.5-45.6) L 03/04/20 06:01 MCV 79 fl (84-94) L 03/04/20 06:01 MCH 26 pg (28-32) L 03/04/20 06:01 MCHC 33 % (32-34) 03/04/20 06:01 RDW 16.4 % (13.2-15.2) H 03/04/20 06:01 Plt Count 274 K/mm3 (140-440) 03/04/20 06:01 Lymph % (Auto) 10.1 % (13.4-35.0) L 03/03/20 15:15 Parker % (Auto) 4.7 % (0.0-7.3) 03/03/20 15:15 Eos % (Auto) 0.0 % (0.0-4.3) 03/03/20 15:15 Baso % (Auto) 0.1 % (0.0-1.8) 03/03/20 15:15 Lymph # (Auto) 0.4 K/mm3 (1.2-5.4) L 03/03/20 15:15 Parker # (Auto) 0.2 K/mm3 (0.0-0.8) 03/03/20 15:15 Eos # (Auto) 0.0 K/mm3 (0.0-0.4) 03/03/20 15:15 Baso # (Auto) 0.0 K/mm3 (0.0-0.1) 03/03/20 15:15 Add Manual Diff Complete 03/02/20 05:31 Total Counted 100 03/02/20 05:31 Seg Neutrophils % 85.1 % (40.0-70.0) H 03/03/20 15:15 Seg Neuts % (Manual) 74.0 % (40.0-70.0) H 03/02/20 05:31 Lymphocytes % (Manual) 23.0 % (13.4-35.0) 03/02/20 05:31 Monocytes % (Manual) 3.0 % (0.0-7.3) 03/02/20 05:31 Nucleated RBC % Not Reportable 03/02/20 05:31 Seg Neutrophils # 3.6 K/mm3 (1.8-7.7) 03/03/20 15:15 Seg Neutrophils # Man 1.3 K/mm3 (1.8-7.7) L 03/02/20 05:31 Band Neutrophils # 0.0 K/mm3 03/02/20 05:31 Lymphocytes # (Manual) 0.4 K/mm3 (1.2-5.4) L 03/02/20 05:31 Abs React Lymphs (Man) 0.0 K/mm3 03/02/20 05:31 Monocytes # (Manual) 0.1 K/mm3 (0.0-0.8) 03/02/20 05:31 Eosinophils # (Manual) 0.0 K/mm3 (0.0-0.4) 03/02/20 05:31 Basophils # (Manual) 0.0 K/mm3 (0.0-0.1) 03/02/20 05:31 Metamyelocytes # 0.0 K/mm3 03/02/20 05:31 Myelocytes # 0.0 K/mm3 03/02/20 05:31 Promyelocytes # 0.0 K/mm3 03/02/20 05:31 Blast Cells # 0.0 K/mm3 03/02/20 05:31 WBC Morphology Not Reportable 03/02/20 05:31 Hypersegmented Neuts Not Reportable 03/02/20 05:31 Hyposegmented Neuts Not Reportable 03/02/20 05:31 Hypogranular Neuts Not Reportable 03/02/20 05:31 Smudge Cells Not Reportable 03/02/20 05:31 Toxic Granulation Not Reportable 03/02/20 05:31 Toxic Vacuolation Not Reportable 03/02/20 05:31 Dohle Bodies Not Reportable 03/02/20 05:31 Pelger-Huet Anomaly Not Reportable 03/02/20 05:31 Gerardo Rods Not Reportable 03/02/20 05:31 Platelet Estimate Consistent w auto 03/02/20 05:31 Clumped Platelets Not Reportable 03/02/20 05:31 Plt Clumps, EDTA Not Reportable 03/02/20 05:31 Large Platelets Not Reportable 03/02/20 05:31 Giant Platelets Not Reportable 03/02/20 05:31 Platelet Satelliting Not Reportable 03/02/20 05:31 Plt Morphology Comment Not Reportable 03/02/20 05:31 RBC Morphology Not Reportable 03/02/20 05:31 Dimorphic RBCs Not Reportable 03/02/20 05:31 Polychromasia Not Reportable 03/02/20 05:31 Hypochromasia 1+ 03/02/20 05:31 Poikilocytosis Not Reportable 03/02/20 05:31 Anisocytosis Not Reportable 03/02/20 05:31 Microcytosis Not Reportable 03/02/20 05:31 Macrocytosis Not Reportable 03/02/20 05:31 Spherocytes Not Reportable 03/02/20 05:31 Pappenheimer Bodies Not Reportable 03/02/20 05:31 Sickle Cells Not Reportable 03/02/20 05:31 Target Cells Not Reportable 03/02/20 05:31 Tear Drop Cells Not Reportable 03/02/20 05:31 Ovalocytes Few 03/02/20 05:31 Helmet Cells Not Reportable 03/02/20 05:31 Aguilar-Barrera Bodies Not Reportable 03/02/20 05:31 [place] Rings Not Reportable 03/02/20 05:31 Dallin Cells Not Reportable 03/02/20 05:31 Bite Cells Not Reportable 03/02/20 05:31 Crenated Cell Not Reportable 03/02/20 05:31 Elliptocytes Not Reportable 03/02/20 05:31 Acanthocytes (Spur) Not Reportable 03/02/20 05:31 Rouleaux Not Reportable 03/02/20 05:31 Hemoglobin C Crystals Not Reportable 03/02/20 05:31 Schistocytes Not Reportable 03/02/20 05:31 Malaria parasites Not Reportable 03/02/20 05:31 Julio Bodies Not Reportable 03/02/20 05:31 Hem Pathologist Commnt No 03/02/20 05:31 PT 12.2 Sec. (12.2-14.9) 03/01/20 17:20 INR 0.92 (0.87-1.13) 03/01/20 17:20 APTT 30.3 Sec. (24.2-36.6) 03/01/20 17:20 D-Dimer 236.88 ng/mlDDU (0-234) H 03/01/20 17:20 D-Dimer 274.02 ng/mlDDU (0-234) H 03/01/20 17:20 Sodium 144 mmol/L (137-145) 03/04/20 06:01 Potassium 3.9 mmol/L (3.6-5.0) 03/04/20 06:01 Chloride 107.5 mmol/L (98-107) H 03/04/20 06:01 Carbon Dioxide 29 mmol/L (22-30) 03/04/20 06:01 Anion Gap 11 mmol/L 03/04/20 06:01 BUN 12 mg/dL (9-20) 03/04/20 06:01 Creatinine 0.6 mg/dL (0.8-1.3) L 03/04/20 06:01 Estimated GFR > 60 ml/min 03/04/20 06:01 BUN/Creatinine Ratio 20 % 03/04/20 06:01 Glucose 133 mg/dL (75-100) H 03/04/20 06:01 Calcium 8.7 mg/dL (8.4-10.2) 03/04/20 06:01 Ferritin 42.8 ng/mL (30.0-300.0) 03/01/20 17:20 Total Bilirubin 0.20 mg/dL (0.1-1.2) 03/01/20 17:20 Direct Bilirubin < 0.2 mg/dL (0-0.2) 03/01/20 17:20 AST 47 units/L (5-40) H 03/01/20 17:20 ALT 57 units/L (7-56) H 03/01/20 17:20 Alkaline Phosphatase 66 units/L (35-129) 03/01/20 17:20 Lactate Dehydrogenase 202 units/L (91-180) H 03/01/20 17:20 C-Reactive Protein 1.00 mg/dL (0.00-1.30) 03/01/20 17:20 Total Protein 7.7 g/dL (6.3-8.2) 03/01/20 17:20 Albumin 4.2 g/dL (3.9-5) 03/01/20 17:20 Albumin/Globulin Ratio 1.2 % 03/01/20 17:20 Procalcitonin < 0.05 ng/mL (<0.15) 03/01/20 17:20 Coronavirus (PCR) Positive (Negative) A 03/02/20 10:00 Jarvis/IV: Voiding Method Toilet IV Catheter Type [Right Hand] INT / Saline Lock IV Catheter Type [Left Forearm INT / Saline Lock ] IV Catheter Type [Left Peripheral IV Antecubital] Active Medications - Current Medications Current Medications: Generic Name Dose Route Start Last Admin Trade Name Freq PRN Reason Stop Dose Admin Acetaminophen 650 mg 03/01/20 19:17 03/09/20 21:58 Acetaminophen 325 Mg Tab PO 650 mg Q4H PRN Administration Pain MILD(1-3)/Fever >100.5/RAYGOZA Albuterol 2.5 mg 03/01/20 19:17 03/01/20 21:38 Albuterol 2.5 Mg/3 Ml Nebu IH 2.5 mg Q4HRT PRN Administration Shortness Of Breath Aripiprazole 5 mg 03/11/20 10:00 03/11/20 11:16 Aripiprazole 5 Mg Tab PO 5 mg QDAY CORTEZ Administration Ascorbic Acid 1,000 mg 03/03/20 22:00 03/11/20 22:49 Ascorbic Acid 500 Mg Tab PO 1,000 mg BID CORTEZ Administration Cholecalciferol 5,000 unit 03/04/20 10:00 03/11/20 11:18 Cholecalciferol (Vit D3) 5,000 Unit Tab PO 5,000 unit DAILY CORTEZ Administration Famotidine 10 mg 03/06/20 22:00 03/11/20 22:47 Famotidine 20 Mg Tab PO 10 mg BID CORTEZ Administration Heparin Sodium (Porcine) 5,000 unit 03/01/20 22:00 03/11/20 22:47 Heparin 5,000 Unit/1 Ml Vial SUB-Q 5,000 unit Q12HR CORTEZ Administration Methylprednisolone Sodium Succinate 40 mg 03/01/20 22:00 03/12/20 06:08 Methylprednisolone Sod Succinate 40 Mg/1 Ml Inj IV 40 mg Q8H CORTEZ Administration Ondansetron HCl 4 mg 03/01/20 19:17 Ondansetron 4 Mg/2 Ml Inj IV Q8H PRN Nausea And Vomiting Sertraline HCl 25 mg 03/11/20 10:00 03/11/20 11:18 Sertraline 25 Mg Tab PO 25 mg QDAY CORTEZ Administration Sodium Chloride 10 ml 03/01/20 22:00 03/12/20 06:09 Sodium Chloride 0.9% 10 Ml Flush Syringe IV 10 ml BID CORTEZ Administration Sodium Chloride 10 ml 03/01/20 19:17 Sodium Chloride 0.9% 10 Ml Flush Syringe IV PRN PRN LINE FLUSH Trazodone HCl 50 mg 03/11/20 22:00 03/11/20 22:47 Trazodone 50 Mg Tab PO 50 mg QHS CORTEZ Administration Zinc Sulfate 220 mg 03/04/20 10:00 03/11/20 11:18 Zinc Sulfate 220 Mg Cap PO 220 mg QDAY CORTEZ Administration Nutrition/Malnutrition Assess - Dietary Evaluation Nutrition/Malnutrition Findings: Nutrition Notes Start: 03/07/20 14:55 Freq: Status: Active Protocol: Document 03/07/20 14:55 TENA (Rec: 03/07/20 14:59 [facility] [id number]) Nutrition Notes Need for Assessment generated from: LOS Initial or Follow up Brief Note Current Diet Regular Height 5 ft 8 in Weight 138.5 kg [place] Body Weight (kg) 70.00 BMI 46.4 Weight Status Morbidly Obese Subjective/Other Information Pt screened for LOS. He has consumed 90% of meals since admission. Percent of energy/protein needs met: 100% energy 97% pro Burn Absent Trauma Absent Current % PO Good (75-100%) Minimum of two criteria No Is patient on ventilator? No Is Patient Ambulatory and/or Out of Bed Yes REE-([place] Jeor-ambulatory/OOB) [ 3034.850 NUTR.[id number]] Kcal/Kg value to use for calculation 13 Approximate Energy Requirements Using 1801 kcal/Kg Calculation Used for Recommendations Kcal/kg Additional Notes Pro needs 0.8-1g/kg adjBW: 83- 104g/day Fluid needs 1ml/kcal Nutrition Intervention Revisit per MD consult or patient Sign Off request:
--- NOTE | 2020-03-12 12:09 | Progress Note ---
Subjective - Reason for Consult Consult date: 03/12/20 Reason for consult: SI - Chief Complaint Chief complaint: During my interview, the patient was sitting up in bed. He is a/o x 3. The patient is smiling. He says "I'm much better today than when I talked to you yesterday." He says he slept "good." The patient denies hallucinations of any kind. He also denies any SI/HI. The patient is asking if he can go back to his correction. REVIEW OF SYSTEMS Constitutional: Negative for weight loss ENT: Negative for stridor Respiratory: Negative for cough or hemoptysis All other systems reviewed and are negative MENTAL STATUS EXAMINATION General Appearance and Behavior: dressed appropriately, calm and cooperative Cooperation: Participating/engaged Psychomotor Behavior: unremarkable and within normal limits Mood: "much better" Affect and affective range: congruent with mood, smiles inappropriately Thought Process: Fluent/Logical Thought Content: Within reality, Speech: Normal volume, Regular rate and rhythm, Intellectual Functioning: Average Suicidal Ideation: Denies Homicidal Ideation: Denies Insight and Judgment: Limited insight and judgment, Memory: Limited Attention: Normal Orientation: Alert, oriented, Assessment and Plan (1) Bipolar 2 disorder, major depressive episode (F31.81) Current Visit: Yes Status: Acute Treatment Plan No changes today Risks, benefits and alternatives of medications discussed with the patient, questions answered and consent obtained from patient. PSYCHOTHERAPY: Supportive psychotherapy provided MEDICAL: Per primary team DELIRIUM PRECAUTIONS: Please re-orient patient frequently, keep lights on during the day, and minimize benzodiazepines and opiates as these medications could worsen patient's confusion. SKIRT PANEL ASSEMBLER: Defer to primary DISPOSITION: Do not recommend acute inpatient psychiatric hospitalization at this time. FOLLOW-UP: Will follow for med management and to monitor psych progress as the patient recently expressed suicidal thoughts. Thank you for the consult. Please contact with any questions and/or concerns. Case discussed with Dr. Hernandez who agrees with current disposition. Mental Status Exam - Vital signs Last Vital Signs Temp 98.4 F 03/12/20 11:16 Pulse 77 03/12/20 11:16 Resp 18 03/12/20 11:16 BP 114/60 03/12/20 11:16 Pulse Ox 97 03/12/20 11:16
[2020-03-12] MEDS: traZODone 50 MG TAB PO SCH (21:39)
[2020-03-13] MEDS: methylPREDNISolone Sod Succinate 40 MG/1 ML INJ IV SCH ×3 (06:24→21:56)
--- NOTE | 2020-03-13 07:49 | Progress Note ---
Subjective - Reason for Consult Consult date: 03/13/20 Reason for consult: SI - Chief Complaint Chief complaint: During my interview, the patient was sitting up in bed. He is a/o x 3. The patient is smiling. A sitter is at bedside. The patient is asking when will he be discharged. He says he feels "good." He denies SI/HI or hallucinations of any kind. REVIEW OF SYSTEMS Constitutional: Negative for weight loss ENT: Negative for stridor Respiratory: Negative for cough or hemoptysis All other systems reviewed and are negative MENTAL STATUS EXAMINATION General Appearance and Behavior: dressed appropriately, calm and cooperative Cooperation: Participating/engaged Psychomotor Behavior: unremarkable and within normal limits Mood: "good" Affect and affective range: congruent with mood, smiles inappropriately Thought Process: Fluent/Logical Thought Content: Within reality, Speech: Normal volume, Regular rate and rhythm, Intellectual Functioning: Average Suicidal Ideation: Denies Homicidal Ideation: Denies Insight and Judgment: Limited insight and judgment, Memory: Limited Attention: Normal Orientation: Alert, oriented, Assessment and Plan (1) Bipolar 2 disorder, major depressive episode (F31.81) Current Visit: Yes Status: Acute Treatment Plan d/c 1013 Scripts Trazodone 50mg po qhs Zoloft 25mg po daily Abilify 5mg po daily Risks, benefits and alternatives of medications discussed with the patient, questions answered and consent obtained from patient. PSYCHOTHERAPY: Supportive psychotherapy provided MEDICAL: Per primary team DELIRIUM PRECAUTIONS: Please re-orient patient frequently, keep lights on during the day, and minimize benzodiazepines and opiates as these medications could worsen patient's confusion. 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 FOLLOW-UP: Will follow for med management and to monitor psych progress until discharged Thank you for the consult. Please contact with any questions and/or concerns. Case discussed with Dr. Hernandez who agrees with current disposition. Mental Status Exam - Vital signs Last Vital Signs Temp 98.5 F 03/13/20 04:11 Pulse 78 03/13/20 04:11 Resp 14 03/13/20 04:11 BP 120/61 03/13/20 04:11 Pulse Ox 91 03/13/20 04:11
[2020-03-13] MEDS: ASCORBIC ACID 500 MG TAB PO SCH ×2 (10:27→21:56)
[2020-03-13] MEDS: ZINC SULFATE 220 MG CAP PO SCH (10:27)
[2020-03-13] MEDS: FAMOTIDINE 20 MG TAB PO SCH ×2 (10:27→21:55)
[2020-03-13] MEDS: ARIPiprazole 5 MG TAB PO SCH (10:27)
[2020-03-13] MEDS: CHOLECALCIFEROL (VIT D3) 5,000 UNIT TAB PO SCH (10:28)
[2020-03-13] MEDS: HEPARIN 5,000 UNIT/1 ML VIAL SUB-Q SCH ×2 (10:28→21:55)
[2020-03-13] MEDS: SERTRALINE 25 MG TAB PO SCH (10:28)
--- NOTE | 2020-03-13 18:56 | Progress Note ---
Assessment and Plan Assessment and plan: COVID-19 test; positive-03/02/20 20, 03/13/2020 --Suicidal thoughts and ideation; Symptoms resolved Psych cleared 1013 Discharge planning per case management -- Acute hypoxemic respiratory failure Current Visit: Yes Status: Acute Plan to address problem: Significantly improved Patient's room air O2 sats 94% No need for home oxygen at this point -- Pneumonia due to COVID-19 virus Current Visit: Yes Status: Acute Plan to address problem: IV steroids, IV remdesivir Inflammatory markers, oxygen Home oxygen evaluation, prone position. Anticoagulation per protocol Repeat Covid test positive No need for oxygen at this point -- Leukopenia resolved Current Visit: Yes Status: Acute Plan to address problem: Secondary to Covid resolved -- Transaminitis Current Visit: Yes Status: Acute Plan to address problem: Secondary to Covid, improved --Obesity; BMI 35 Current Visit: Yes Status: Acute Plan to address problem: patient needs weight reduction when medically stable --DVT prophylaxis Current Visit: Yes Status: Acute Plan to address problem: On Lovenox and GI prophylaxis Patient is medically stable for discharge, psych cleared Pending placement Brief history and hospital course: 25 YO Male who is currently an inpatient at [facility] with Depression, Asthma, HLD, Developmental Delay presents to ED for evaluation. Patient reports "feeling 6" over the past 2 days. Patient states that he has experienced fever, dry cough, shortness of breath, body aches, malaise, nausea, multiple loose stools. Patient underwent a coronavirus test on yesterday and was found to be COVID-19 positive. Patient has experienced persistent symptoms over the same timeframe. EMS was notified and upon arrival the patient was found to be in distress and subsequently transported to [facility] for further care and evaluation of the aforementioned symptoms. The patient was seen and evaluated in the emergency department. All lab and imaging studies reviewed. The patient was found to have a pulse oximetry of 87% with exertion which is consistent with acute hypoxemic respiratory failure. The patient underwent chest x-ray and was found to have pneumonia. The patient was admitted to medical floor and initiated on pneumonia protocol as well as coronavirus protocol. Infectious disease service consulted. Patient denies chills, chest pain, palpitation, skin rash or recent ill contacts. No prior admission for review. No medication listed at time of admission for reconciliation. 03/02/20:Doing well, On 3 liters [place] o2, Smith PCR positive 03/03: Continue oxygen therapy at this time. We will add some vitamins supplementation. A dose of Lasix today. Patient noted to have leukopenia we will continue to monitor closely. Remdesivir was started. Patient requesting for his phone from [facility] and staff to help locate. 03/04: Continue supportive care, Discussed with family Mica Pritchett [phone], anticipate discharge in a day or two. Per family the patient has a hx of SI/HI and was at [facility] for the same thing. She reports that this is a monthly thing and has not had an attempt. Will obtain Mental health consult. 03/05: Patient clinically improving. Continue remdesivir and steroids. Discussed with nursing staff they will check room air oxygen today in preparation for discharge within 24 to 48 hours. Psych evaluation pending 03/06; home oxygen evaluation, possible discharge home tomorrow if stable. 03/07; patient is stable for discharge, case management checking with [facility] discharge planning 03/08; patient is initially discharged this morning, however the halfway is not accepting Covid positive patients Case management processing halfway placement placement Resting room air 6-minute walk room air O2 sats more than 92%, no indication for home oxygen 03/09/2020; suicidal thoughts and ideation, 1013 status, psych consulted, continue supportive care 03/10/2020; patient has suicidal thoughts and ideation, management per psych, 1013 status Patient is medically stable for discharge. 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 nurse, safety belt installer at the bedside 03/13/2020; patient cleared by psych, 1013 rescinded Repeat Covid test positive today, pending placement, case management assisting with DC planning Hospitalist Physical - Constitutional Vitals: Temp Pulse Resp BP Pulse Ox 97.6 F 72 20 128/76 92 03/13/20 16:29 03/13/20 16:29 03/13/20 16:29 03/13/20 16:29 03/13/20 16:29 General appearance: Present: mild distress, well-nourished, obese - EENT Eyes: Present: PERRL, EOM intact ENT: other (Physical exam not done to reduce risk of transmission) - Neck Neck: Present: other (Physical exam not done to reduce risk of transmission) - Respiratory Respiratory effort: other (Physical exam not done to reduce risk of transmission) - Cardiovascular Rhythm: other (Physical exam not done to reduce risk of transmission) - Extremities Extremity abnormal: other (Physical exam not done to reduce risk of transmission) - Abdominal General gastrointestinal: other (Physical exam not done to reduce risk of transmission) - Psychiatric Psychiatric: other (Physical exam not done to reduce risk of transmission) Results - Labs CBC & Chem 7: 03/04/20 06:01 03/04/20 06:01 Labs: Laboratory Last Values WBC 5.8 K/mm3 (4.5-11.0) 03/04/20 06: RBC 4.20 M/mm3 (3.65-5.03) 03/04/20 06:01 Hgb 10.9 gm/dl (11.8-15.2) L 03/04/20 06:01 Hct 33.2 % (35.5-45.6) L 03/04/20 06:01 MCV 79 fl (84-94) L 03/04/20 06:01 MCH 26 pg (28-32) L 03/04/20 06:01 MCHC 33 % (32-34) 03/04/20 06:01 RDW 16.4 % (13.2-15.2) H 03/04/20 06:01 Plt Count 274 K/mm3 (140-440) 03/04/20 06:01 Lymph % (Auto) 10.1 % (13.4-35.0) L 03/03/20 15:15 Ripley % (Auto) 4.7 % (0.0-7.3) 03/03/20 15:15 Eos % (Auto) 0.0 % (0.0-4.3) 03/03/20 15:15 Baso % (Auto) 0.1 % (0.0-1.8) 03/03/20 15:15 Lymph # (Auto) 0.4 K/mm3 (1.2-5.4) L 03/03/20 15:15 Ripley # (Auto) 0.2 K/mm3 (0.0-0.8) 03/03/20 15:15 Eos # (Auto) 0.0 K/mm3 (0.0-0.4) 03/03/20 15:15 Baso # (Auto) 0.0 K/mm3 (0.0-0.1) 03/03/20 15:15 Add Manual Diff Complete 03/02/20 05:31 Total Counted 100 03/02/20 05:31 Seg Neutrophils % 85.1 % (40.0-70.0) H 03/03/20 15:15 Seg Neuts % (Manual) 74.0 % (40.0-70.0) H 03/02/20 05:31 Lymphocytes % (Manual) 23.0 % (13.4-35.0) 03/02/20 05:31 Monocytes % (Manual) 3.0 % (0.0-7.3) 03/02/20 05:31 Nucleated RBC % Not Reportable 03/02/20 05:31 Seg Neutrophils # 3.6 K/mm3 (1.8-7.7) 03/03/20 15:15 Seg Neutrophils # Man 1.3 K/mm3 (1.8-7.7) L 03/02/20 05:31 Band Neutrophils # 0.0 K/mm3 03/02/20 05:31 Lymphocytes # (Manual) 0.4 K/mm3 (1.2-5.4) L 03/02/20 05:31 Abs React Lymphs (Man) 0.0 K/mm3 03/02/20 05:31 Monocytes # (Manual) 0.1 K/mm3 (0.0-0.8) 03/02/20 05:31 Eosinophils # (Manual) 0.0 K/mm3 (0.0-0.4) 03/02/20 05:31 Basophils # (Manual) 0.0 K/mm3 (0.0-0.1) 03/02/20 05:31 Metamyelocytes # 0.0 K/mm3 03/02/20 05:31 Myelocytes # 0.0 K/mm3 03/02/20 05:31 Promyelocytes # 0.0 K/mm3 03/02/20 05:31 Blast Cells # 0.0 K/mm3 03/02/20 05:31 WBC Morphology Not Reportable 03/02/20 05:31 Hypersegmented Neuts Not Reportable 03/02/20 05:31 Hyposegmented Neuts Not Reportable 03/02/20 05:31 Hypogranular Neuts Not Reportable 03/02/20 05:31 Smudge Cells Not Reportable 03/02/20 05:31 Toxic Granulation Not Reportable 03/02/20 05:31 Toxic Vacuolation Not Reportable 03/02/20 05:31 Dohle Bodies Not Reportable 03/02/20 05:31 Pelger-Huet Anomaly Not Reportable 03/02/20 05:31 Gerardo Rods Not Reportable 03/02/20 05:31 Platelet Estimate Consistent w auto 03/02/20 05:31 Clumped Platelets Not Reportable 03/02/20 05:31 Plt Clumps, EDTA Not Reportable 03/02/20 05:31 Large Platelets Not Reportable 03/02/20 05:31 Giant Platelets Not Reportable 03/02/20 05:31 Platelet Satelliting Not Reportable 03/02/20 05:31 Plt Morphology Comment Not Reportable 03/02/20 05:31 RBC Morphology Not Reportable 03/02/20 05:31 Dimorphic RBCs Not Reportable 03/02/20 05:31 Polychromasia Not Reportable 03/02/20 05:31 Hypochromasia 1+ 03/02/20 05:31 Poikilocytosis Not Reportable 03/02/20 05:31 Anisocytosis Not Reportable 03/02/20 05:31 Microcytosis Not Reportable 03/02/20 05:31 Macrocytosis Not Reportable 03/02/20 05:31 Spherocytes Not Reportable 03/02/20 05:31 Pappenheimer Bodies Not Reportable 03/02/20 05:31 Sickle Cells Not Reportable 03/02/20 05:31 Target Cells Not Reportable 03/02/20 05:31 Tear Drop Cells Not Reportable 03/02/20 05:31 Ovalocytes Few 03/02/20 05:31 Helmet Cells Not Reportable 03/02/20 05:31 Aguilar-Comunas Bodies Not Reportable 03/02/20 05:31 Vista Rings Not Reportable 03/02/20 05:31 Newport Cells Not Reportable 03/02/20 05:31 Bite Cells Not Reportable 03/02/20 05:31 Crenated Cell Not Reportable 03/02/20 05:31 Elliptocytes Not Reportable 03/02/20 05:31 Acanthocytes (Spur) Not Reportable 03/02/20 05:31 Rouleaux Not Reportable 03/02/20 05:31 Hemoglobin C Crystals Not Reportable 03/02/20 05:31 Schistocytes Not Reportable 03/02/20 05:31 Malaria parasites Not Reportable 03/02/20 05:31 Julio Bodies Not Reportable 03/02/20 05:31 Hem Pathologist Commnt No 03/02/20 05:31 PT 12.2 Sec. (12.2-14.9) 03/01/20 17:20 INR 0.92 (0.87-1.13) 03/01/20 17:20 APTT 30.3 Sec. (24.2-36.6) 03/01/20 17:20 D-Dimer 236.88 ng/mlDDU (0-234) H 03/01/20 17:20 D-Dimer 274.02 ng/mlDDU (0-234) H 03/01/20 17:20 Sodium 144 mmol/L (137-145) 03/04/20 06:01 Potassium 3.9 mmol/L (3.6-5.0) 03/04/20 06:01 Chloride 107.5 mmol/L (98-107) H 03/04/20 06:01 Carbon Dioxide 29 mmol/L (22-30) 03/04/20 06:01 Anion Gap 11 mmol/L 03/04/20 06:01 BUN 12 mg/dL (9-20) 03/04/20 06:01 Creatinine 0.6 mg/dL (0.8-1.3) L 03/04/20 06:01 Estimated GFR > 60 ml/min 03/04/20 06:01 BUN/Creatinine Ratio 20 % 03/04/20 06:01 Glucose 133 mg/dL (75-100) H 03/04/20 06:01 Calcium 8.7 mg/dL (8.4-10.2) 03/04/20 06:01 Ferritin 42.8 ng/mL (30.0-300.0) 03/01/20 17:20 Total Bilirubin 0.20 mg/dL (0.1-1.2) 03/01/20 17:20 Direct Bilirubin < 0.2 mg/dL (0-0.2) 03/01/20 17:20 AST 47 units/L (5-40) H 03/01/20 17:20 ALT 57 units/L (7-56) H 03/01/20 17:20 Alkaline Phosphatase 66 units/L (35-129) 03/01/20 17:20 Lactate Dehydrogenase 202 units/L (91-180) H 03/01/20 17:20 C-Reactive Protein 1.00 mg/dL (0.00-1.30) 03/01/20 17:20 Total Protein 7.7 g/dL (6.3-8.2) 03/01/20 17:20 Albumin 4.2 g/dL (3.9-5) 03/01/20 17:20 Albumin/Globulin Ratio 1.2 % 03/01/20 17:20 Procalcitonin < 0.05 ng/mL (<0.15) 03/01/20 17:20 Coronavirus (PCR) Positive (Negative) A 03/13/20 Unknown Jarvis/IV: Voiding Method Toilet IV Catheter Type [Right Hand] INT / Saline Lock IV Catheter Type [Left Forearm INT / Saline Lock ] IV Catheter Type [Left Peripheral IV Antecubital] Active Medications - Current Medications Current Medications: Generic Name Dose Route Start Last Admin Trade Name Freq PRN Reason Stop Dose Admin Acetaminophen 650 mg 03/01/20 19:17 03/09/20 21:58 Acetaminophen 325 Mg Tab PO 650 mg Q4H PRN Administration Pain MILD(1-3)/Fever >100.5/RAYGOZA Albuterol 2.5 mg 03/01/20 19:17 03/01/20 21:38 Albuterol 2.5 Mg/3 Ml Nebu IH 2.5 mg Q4HRT PRN Administration Shortness Of Breath Aripiprazole 5 mg 03/11/20 10:00 03/13/20 10:27 Aripiprazole 5 Mg Tab PO 5 mg QDAY CORTEZ Administration Ascorbic Acid 1,000 mg 03/03/20 22:00 03/13/20 10:27 Ascorbic Acid 500 Mg Tab PO 1,000 mg BID CORTEZ Administration Cholecalciferol 5,000 unit 03/04/20 10:00 03/13/20 10:28 Cholecalciferol (Vit D3) 5,000 Unit Tab PO 5,000 unit DAILY CORTEZ Administration Famotidine 10 mg 03/06/20 22:00 03/13/20 10:27 Famotidine 20 Mg Tab PO 10 mg BID CORTEZ Administration Heparin Sodium (Porcine) 5,000 unit 03/01/20 22:00 03/13/20 10:28 Heparin 5,000 Unit/1 Ml Vial SUB-Q 5,000 unit Q12HR CORTEZ Administration Methylprednisolone Sodium Succinate 40 mg 03/01/20 22:00 03/13/20 13:25 Methylprednisolone Sod Succinate 40 Mg/1 Ml Inj IV 40 mg Q8H CORTEZ Administration Ondansetron HCl 4 mg 03/01/20 19:17 Ondansetron 4 Mg/2 Ml Inj IV Q8H PRN Nausea And Vomiting Sertraline HCl 25 mg 03/11/20 10:00 03/13/20 10:28 Sertraline 25 Mg Tab PO 25 mg QDAY CORTEZ Administration Sodium Chloride 10 ml 03/01/20 22:00 03/13/20 10:28 Sodium Chloride 0.9% 10 Ml Flush Syringe IV 10 ml BID CORTEZ Administration Sodium Chloride 10 ml 03/01/20 19:17 Sodium Chloride 0.9% 10 Ml Flush Syringe IV PRN PRN LINE FLUSH Trazodone HCl 50 mg 03/11/20 22:00 03/12/20 21:39 Trazodone 50 Mg Tab PO 50 mg QHS CORTEZ Administration Zinc Sulfate 220 mg 03/04/20 10:00 03/13/20 10:27 Zinc Sulfate 220 Mg Cap PO 220 mg QDAY CORTEZ Administration Nutrition/Malnutrition Assess - Dietary Evaluation Nutrition/Malnutrition Findings: Nutrition Notes Start: 03/07/20 14:55 Freq: Status: Active Protocol: Document 03/07/20 14:55 TENA (Rec: 03/07/20 14:59 [facility] [id number]) Nutrition Notes Need for Assessment generated from: LOS Initial or Follow up Brief Note Current Diet Regular Height 5 ft 8 in Weight 138.5 kg [place] Body Weight (kg) 70.00 BMI 46.4 Weight Status Morbidly Obese Subjective/Other Information Pt screened for LOS. He has consumed 90% of meals since admission. Percent of energy/protein needs met: 100% energy 97% pro Burn Absent Trauma Absent Current % PO Good (75-100%) Minimum of two criteria No Is patient on ventilator? No Is Patient Ambulatory and/or Out of Bed Yes [place]EE[place]amb[place]/OOB) [ 3034.850 NUTR.MSJOOB] Kcal/Kg value to use for calculation 13 Approximate Energy Requirements Using 1801 kcal/Kg Calculation Used for Recommendations Kcal/kg Additional Notes Pro needs 0.8-1g/kg adjBW: 83- 104g/day Fluid needs 1ml/kcal Nutrition Intervention Revisit per MD consult or patient Sign Off request:
[2020-03-13] MEDS: traZODone 50 MG TAB PO SCH (21:55)
[2020-03-14] MEDS: methylPREDNISolone Sod Succinate 40 MG/1 ML INJ IV SCH (05:22)
[2020-03-14] MEDS: SERTRALINE 25 MG TAB PO SCH (09:33)
[2020-03-14] MEDS: HEPARIN 5,000 UNIT/1 ML VIAL SUB-Q SCH ×2 (09:33→21:26)
[2020-03-14] MEDS: CHOLECALCIFEROL (VIT D3) 5,000 UNIT TAB PO SCH (09:33)
[2020-03-14] MEDS: ARIPiprazole 5 MG TAB PO SCH (09:33)
[2020-03-14] MEDS: ASCORBIC ACID 500 MG TAB PO SCH ×2 (09:33→21:26)
[2020-03-14] MEDS: FAMOTIDINE 20 MG TAB PO SCH ×2 (09:33→21:26)
--- NOTE | 2020-03-14 10:10 | Progress Note ---
Subjective - Reason for Consult Consult date: 03/14/20 Reason for consult: Depression/SI - Chief Complaint Chief complaint: During my interview, the patient was sitting up in bed. He is a/o x 3. The patient is smiling.The patient says he is doing "great." He says he slept "very well." He denies SI/HI or hallucinations of any kind. REVIEW OF SYSTEMS Constitutional: Negative for weight loss ENT: Negative for stridor Respiratory: Negative for cough or hemoptysis All other systems reviewed and are negative MENTAL STATUS EXAMINATION General Appearance and Behavior: dressed appropriately, calm and cooperative Cooperation: Participating/engaged Psychomotor Behavior: unremarkable and within normal limits Mood: "great" Affect and affective range: congruent with mood, smiles inappropriately Thought Process: Fluent/Logical Thought Content: Within reality, Speech: Normal volume, Regular rate and rhythm, Intellectual Functioning: Average Suicidal Ideation: Denies Homicidal Ideation: Denies Insight and Judgment: Limited insight and judgment, Memory: Limited Attention: Normal Orientation: Alert, oriented, Assessment and Plan (1) Bipolar 2 disorder, major depressive episode (F31.81) Current Visit: Yes Status: Acute Treatment Plan Continue current regimen. Scripts Trazodone 50mg po qhs Zoloft 25mg po daily Abilify 5mg po daily Risks, benefits and alternatives of medications discussed with the patient, questions answered and consent obtained from patient. PSYCHOTHERAPY: Supportive psychotherapy provided MEDICAL: Per primary team DELIRIUM PRECAUTIONS: Please re-orient patient frequently, keep lights on during the day, and minimize benzodiazepines and opiates as these medications could worsen patient's confusion. IS MANAGER: Defer to primary DISPOSITION: Do not recommend acute inpatient psychiatric hospitalization at this time. Will continue to follow for med changes and patient psych progress. FOLLOW-UP: Will follow for med management and to monitor psych progress until discharged Thank you for the consult. Please contact with any questions and/or concerns. Case discussed with Dr. Hernandez who agrees with current disposition. Mental Status Exam - Vital signs Last Vital Signs Temp 98.0 F 03/14/20 05:47 Pulse 57 L 03/14/20 05:47 Resp 20 03/14/20 05:47 BP 117/51 03/14/20 05:47 Pulse Ox 93 03/14/20 05:47
--- NOTE | 2020-03-14 12:53 | Discharge Summary ---
Providers - Providers Date of Admission: 03/01/20 19:18 Date of discharge: 03/14/20 Attending physician: PAOLO HERBERT 03/01/20 19:22 Consult to Physician [CONS] Routine Comment: Consulting Provider: MARIANNA YU Physician Instructions: Reason For Exam: pui 03/04/20 11:22 Consult to Mental Health [CONS] Routine Reason For Exam: suicidal ideation 03/09/20 12:07 psychiatry consult [Consult to Mental Health] [CONS] Routine Reason For Exam: Suicidal ideation/reconsult Primary care physician: OCCUPATIONAL THERAPIST ASSISTANT Hospitalization Reason for admission: Fever shortness of breath and cough/recently tested positive COVID-19 Condition: Stable Pertinent studies: CXR: Right-sided pneumonia Hospital course: 25 YO Male patient patient with significant past medical history of depression asthma developmental delay from [facility] was admitted with history of fever cough, loose stool and shortness of breath. Patient was tested positive for coronavirus day before presenting to the emergency room .patient was admitted in isolation managed appropriately evaluated by ID , treated per COVID- 19 protocols .patient complained of suicidal thoughts and ideation .evaluated by psych placed on 1013 status and psych medications were optimized .patient's symptoms gradually but significantly improved ,Case management has set up care home placement , today he is comfortable, no new complaints ,vital signs stable, physical examination is unremarkable. Covid test prior to discharge and placement again came back positive. Patient is hemodynamically and clinically stable at discharge. Oxygen saturations prior to discharge was checked patient is saturating more than 94% on room air, both resting and ambulatory, no need for home oxygen Stable at discharge. Final diagnosis: COVID-19 test; positive-03/02/20, 03/13/2020 --Suicidal thoughts and ideation; psych cleared for DC Symptoms resolved, Psych rescinded 1013, cleared for discharge to care home No need for inpatient psych transfer -- Acute hypoxemic respiratory failure/POA Current Visit: Yes Status: Acute Plan to address problem: Symptoms resolved ,room air O2 sats more than 94% No need for home oxygen -- Pneumonia due to COVID-19 virus Current Visit: Yes Status: Acute Plan to address problem: Patient received IV steroids, IV remdesivir Per COVID-19 protocol, ID has evaluated No need for home oxygen Continue self quarantine per COVID-19 protocols upon discharge Room air O2 sats more than 94 No indication for home oxygen at this point --Sepsis due to Covid 19 Pneumonia: Current Visit: Yes Status: Acute Plan to address problem: Continue current management -- Leukopenia resolved Current Visit: Yes Status: Acute Plan to address problem: Secondary to Covid resolved -- Transaminitis Current Visit: Yes Status: Acute. Plan to address problem: Secondary to Covid, improved --Obesity; BMI 35 Current Visit: Yes Status: Acute Plan to address problem: patient needs weight reduction when medically stable --DVT prophylaxis Current Visit: Yes Status: Acute Plan to address problem: Patient received Lovenox during hospital stay Patient is medically stable for discharge Disposition: DC/[place]-70 ANOTHER TYPE HLTHCARE Time spent for discharge: 35 min Core Measure Documentation - Palliative Care Palliative Care/ Comfort Measures: Not Applicable - Core Measures Any of the following diagnoses?: none Exam - Constitutional Vitals: Temp Pulse Resp BP Pulse Ox 98.0 F 57 L 20 117/51 93 03/14/20 05:47 03/14/20 05:47 03/14/20 05:47 03/14/20 05:47 03/14/20 05:47 General appearance: Present: no acute distress, well-nourished - EENT Eyes: Present: PERRL, EOM intact - Neck Neck: Present: supple, normal ROM - Respiratory Respiratory effort: normal Respiratory: bilateral: diminished, negative: rales, rhonchi, wheezing - Cardiovascular Rhythm: regular Heart Sounds: Present: S1 & S2 - Extremities Extremities: no ischemia, No edema - Abdominal General gastrointestinal: Present: soft, non-tender, non-distended, normal bowel sounds - Integumentary Integumentary: Present: clear, warm - Musculoskeletal Musculoskeletal: strength equal bilaterally, generalized weakness - Psychiatric Psychiatric: appropriate mood/affect, cooperative - Neurologic Neurologic: CNII-XII intact, moves all extremities Plan Activity: advance as tolerated, fall precautions Diet: regular Additional Instructions: Patient is being discharged to care home. COVID-19 protocols. Self quarantine ,handwashing and wearing mask. If you have worsening symptoms contact MD or go to emergency room. Advised to see private psychiatrist in 3 to 5 days Follow up with: CHERY JAIME MD [Primary Care Provider] - 3-5 Days LUIS LEWIS MD [Staff Physician] - 7 Days Prescriptions: ARIPiprazole [Abilify TAB] 5 mg PO DAILY #30 tab traZODone [Desyrel] 50 mg PO QHS #30 tab Sertraline [Zoloft] 25 mg PO QDAY #30 tab
--- NOTE | 2020-03-14 12:55 | Progress Note ---
Assessment and Plan Assessment and plan: COVID-19 test; positive-03/02/20 20, 03/13/2020 --Suicidal thoughts and ideation; Symptoms resolved Psych cleared 1013, cleared for discharge to skilled nursing No indication for inpatient psych transfer Case management set up skilled nursing placement tomorrow -- Acute hypoxemic respiratory failure Current Visit: Yes Status: Acute Plan to address problem: Room air O2 sats more than 94% No need for home oxygen -- Pneumonia due to COVID-19 virus Current Visit: Yes Status: Acute Plan to address problem: IV steroids, IV remdesivir Inflammatory markers, oxygen Home oxygen evaluation, prone position. Anticoagulation per protocol Repeat Covid test positive No need for oxygen at this point -- Leukopenia resolved Current Visit: Yes Status: Acute Plan to address problem: Secondary to Covid resolved -- Transaminitis Current Visit: Yes Status: Acute Plan to address problem: Secondary to Covid, improved --Obesity; BMI 35 Current Visit: Yes Status: Acute Plan to address problem: patient needs weight reduction when medically stable --DVT prophylaxis Current Visit: Yes Status: Acute Plan to address problem: On Lovenox and GI prophylaxis Patient is medically stable for discharge, psych cleared Pending placement Brief history and hospital course: 25 YO Male who is currently an inpatient at [facility] with Depression, Asthma, HLD, Developmental Delay presents to ED for evaluation. Patient reports "feeling 6" over the past 2 days. Patient states that he has experienced fever, dry cough, shortness of breath, body aches, malaise, nausea, multiple loose stools. Patient underwent a coronavirus test on yesterday and was found to be COVID-19 positive. Patient has experienced persistent symptoms over the same timeframe. EMS was notified and upon arrival the patient was found to be in distress and subsequently transported to [facility] for further care and evaluation of the aforementioned symptoms. The patient was seen and evaluated in the emergency department. All lab and imaging studies reviewed. The patient was found to have a pulse oximetry of 87% with exertion which is consistent with acute hypoxemic respiratory failure. The patient underwent chest x-ray and was found to have pneumonia. The patient was admitted to medical floor and initiated on pneumonia protocol as well as coronavirus protocol. Infectious disease service consulted. Patient denies chills, chest pain, palpitation, skin rash or recent ill contacts. No prior admission for review. No medication listed at time of admission for reconciliation. 03/02/20:Doing well, On 3 liters [place] o2, Smith PCR positive 03/03: Continue oxygen therapy at this time. We will add some vitamins supplementation. A dose of Lasix today. Patient noted to have leukopenia we will continue to monitor closely. Remdesivir was started. Patient requesting for his phone from [facility] and staff to help locate. 03/04: Continue supportive care, Discussed with family Mica Pritchett [phone], anticipate discharge in a day or two. Per family the patient has a hx of SI/HI and was at [facility] for the same thing. She reports that this is a monthly thing and has not had an attempt. Will obtain Mental health consult. 03/05: Patient clinically improving. Continue remdesivir and steroids. Discussed with nursing staff they will check room air oxygen today in preparation for discharge within 24 to 48 hours. Psych evaluation pending 03/06; home oxygen evaluation, possible discharge home tomorrow if stable. 03/07; patient is stable for discharge, case management checking with [facility] discharge planning 03/08; patient is initially discharged this morning, however the skilled nursing is not accepting Covid positive patients Case management processing skilled nursing placement placement Resting room air 6-minute walk room air O2 sats more than 92%, no indication for home oxygen 03/09/2020; suicidal thoughts and ideation, 1013 status, psych consulted, continue supportive care 03/10/2020; patient has suicidal thoughts and ideation, management per psych, 1013 status Patient is medically stable for discharge. 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 nurse, environmental safety specialist at the bedside 03/13/2020; patient cleared by psych, 1013 rescinded Repeat Covid test positive today, pending placement, case management assisting with DC planning 03/14/2020; initially patient was supposed to be discharged today however due to transportation issues [facility] personnel have recommended discharge tomorrow first thing in the morning Patient feels better no suicidal thoughts or ideation, vital signs stable History Interval history: I have seen the patient in his room from a distance No new complaints, patient is cheerful and excited that he is going home tomorrow Vital signs noted Hospitalist Physical - Constitutional Vitals: Temp Pulse Resp BP Pulse Ox 98.0 F 57 L 20 117/51 93 03/14/20 05:47 03/14/20 05:47 03/14/20 05:47 03/14/20 05:47 03/14/20 05:47 General appearance: Present: no acute distress, well-nourished - EENT Eyes: Present: PERRL, EOM intact - Neck Neck: Present: supple, normal ROM - Respiratory Respiratory effort: normal Respiratory: bilateral: diminished, rhonchi, negative: rales, wheezing - Cardiovascular Rhythm: regular Heart Sounds: Present: S1 & S2 - Extremities Extremities: no ischemia, No edema Peripheral Pulses: within normal limits - Abdominal General gastrointestinal: soft, non-tender, non-distended, normal bowel sounds - Integumentary Integumentary: Present: clear, warm - Psychiatric Psychiatric: appropriate mood/affect, cooperative - Neurologic Neurologic: moves all extremities Results - Labs CBC & Chem 7: 03/04/20 06:01 03/04/20 06:01 Labs: Laboratory Last Values WBC 5.8 K/mm3 (4.5-11.0) 03/04/20 06:01 RBC 4.20 M/mm3 (3.65-5.03) 03/04/20 06:01 Hgb 10.9 gm/dl (11.8-15.2) L 03/04/20 06:01 Hct 33.2 % (35.5-45.6) L 03/04/20 06:01 MCV 79 fl (84-94) L 03/04/20 06:01 MCH 26 pg (28-32) L 03/04/20 06:01 MCHC 33 % (32-34) 03/04/20 06:01 RDW 16.4 % (13.2-15.2) H 03/04/20 06:01 Plt Count 274 K/mm3 (140-440) 03/04/20 06:01 Lymph % (Auto) 10.1 % (13.4-35.0) L 03/03/20 15:15 Wells % (Auto) 4.7 % (0.0-7.3) 03/03/20 15:15 Eos % (Auto) 0.0 % (0.0-4.3) 03/03/20 15:15 Baso % (Auto) 0.1 % (0.0-1.8) 03/03/20 15:15 Lymph # (Auto) 0.4 K/mm3 (1.2-5.4) L 03/03/20 15:15 Wells # (Auto) 0.2 K/mm3 (0.0-0.8) 03/03/20 15:15 Eos # (Auto) 0.0 K/mm3 (0.0-0.4) 03/03/20 15:15 Baso # (Auto) 0.0 K/mm3 (0.0-0.1) 03/03/20 15:15 Add Manual Diff Complete 03/02/20 05:31 Total Counted 100 03/02/20 05:31 Seg Neutrophils % 85.1 % (40.0-70.0) H 03/03/20 15:15 Seg Neuts % (Manual) 74.0 % (40.0-70.0) H 03/02/20 05:31 Lymphocytes % (Manual) 23.0 % (13.4-35.0) 03/02/20 05:31 Monocytes % (Manual) 3.0 % (0.0-7.3) 03/02/20 05:31 Nucleated RBC % Not Reportable 03/02/20 05:31 Seg Neutrophils # 3.6 K/mm3 (1.8-7.7) 03/03/20 15:15 Seg Neutrophils # Man 1.3 K/mm3 (1.8-7.7) L 03/02/20 05:31 Band Neutrophils # 0.0 K/mm3 03/02/20 05:31 Lymphocytes # (Manual) 0.4 K/mm3 (1.2-5.4) L 03/02/20 05:31 Abs React Lymphs (Man) 0.0 K/mm3 03/02/20 05:31 Monocytes # (Manual) 0.1 K/mm3 (0.0-0.8) 03/02/20 05:31 Eosinophils # (Manual) 0.0 K/mm3 (0.0-0.4) 03/02/20 05:31 Basophils # (Manual) 0.0 K/mm3 (0.0-0.1) 03/02/20 05:31 Metamyelocytes # 0.0 K/mm3 03/02/20 05:31 Myelocytes # 0.0 K/mm3 03/02/20 05:31 Promyelocytes # 0.0 K/mm3 03/02/20 05:31 Blast Cells # 0.0 K/mm3 03/02/20 05:31 WBC Morphology Not Reportable 03/02/20 05:31 Hypersegmented Neuts Not Reportable 03/02/20 05:31 Hyposegmented Neuts Not Reportable 03/02/20 05:31 Hypogranular Neuts Not Reportable 03/02/20 05:31 Smudge Cells Not Reportable 03/02/20 05:31 Toxic Granulation Not Reportable 03/02/20 05:31 Toxic Vacuolation Not Reportable 03/02/20 05:31 Dohle Bodies Not Reportable 03/02/20 05:31 Pelger-Huet Anomaly Not Reportable 03/02/20 05:31 Gerardo Rods Not Reportable 03/02/20 05:31 Platelet Estimate Consistent w auto 03/02/20 05:31 Clumped Platelets Not Reportable 03/02/20 05:31 Plt Clumps, EDTA Not Reportable 03/02/20 05:31 Large Platelets Not Reportable 03/02/20 05:31 Giant Platelets Not Reportable 03/02/20 05:31 Platelet Satelliting Not Reportable 03/02/20 05:31 Plt Morphology Comment Not Reportable 03/02/20 05:31 RBC Morphology Not Reportable 03/02/20 05:31 Dimorphic RBCs Not Reportable 03/02/20 05:31 Polychromasia Not Reportable 03/02/20 05:31 Hypochromasia 1+ 03/02/20 05:31 Poikilocytosis Not Reportable 03/02/20 05:31 Anisocytosis Not Reportable 03/02/20 05:31 Microcytosis Not Reportable 03/02/20 05:31 Macrocytosis Not Reportable 03/02/20 05:31 Spherocytes Not Reportable 03/02/20 05:31 Pappenheimer Bodies Not Reportable 03/02/20 05:31 Sickle Cells Not Reportable 03/02/20 05:31 Target Cells Not Reportable 03/02/20 05:31 Tear Drop Cells Not Reportable 03/02/20 05:31 Ovalocytes Few 12/24/20 05:31 Helmet Cells Not Reportable 03/02/20 05:31 Aguilar-Gildford Bodies Not Reportable 03/02/20 05:31 [place] Rings Not Reportable 03/02/20 05:31 [place] Cells Not Reportable 03/02/20 05:31 Bite Cells Not Reportable 03/02/20 05:31 Crenated Cell Not Reportable 03/02/20 05:31 Elliptocytes Not Reportable 03/02/20 05:31 Acanthocytes (Spur) Not Reportable 03/02/20 05:31 Rouleaux Not Reportable 03/02/20 05:31 Hemoglobin C Crystals Not Reportable 03/02/20 05:31 Schistocytes Not Reportable 03/02/20 05:31 Malaria parasites Not Reportable 03/02/20 05:31 Julio Bodies Not Reportable 03/02/20 05:31 Hem Pathologist Commnt No 03/02/20 05:31 PT 12.2 Sec. (12.2-14.9) 03/01/20 17:20 INR 0.92 (0.87-1.13) 03/01/20 17:20 APTT 30.3 Sec. (24.2-36.6) 03/01/20 17:20 D-Dimer 236.88 ng/mlDDU (0-234) H 03/01/20 17:20 D-Dimer 274.02 ng/mlDDU (0-234) H 03/01/20 17:20 Sodium 144 mmol/L (137-145) 03/04/20 06:01 Potassium 3.9 mmol/L (3.6-5.0) 03/04/20 06:01 Chloride 107.5 mmol/L (98-107) H 03/04/20 06:01 Carbon Dioxide 29 mmol/L (22-30) 03/04/20 06:01 Anion Gap 11 mmol/L 03/04/20 06:01 BUN 12 mg/dL (9-20) 03/04/20 06:01 Creatinine 0.6 mg/dL (0.8-1.3) L 03/04/20 06:01 Estimated GFR > 60 ml/min 03/04/20 06:01 BUN/Creatinine Ratio 20 % 03/04/20 06:01 Glucose 133 mg/dL (75-100) H 03/04/20 06:01 Calcium 8.7 mg/dL (8.4-10.2) 03/04/20 06:01 Ferritin 42.8 ng/mL (30.0-300.0) 03/01/20 17:20 Total Bilirubin 0.20 mg/dL (0.1-1.2) 03/01/20 17:20 Direct Bilirubin < 0.2 mg/dL (0-0.2) 03/01/20 17:20 AST 47 units/L (5-40) H 03/01/20 17:20 ALT 57 units/L (7-56) H 03/01/20 17:20 Alkaline Phosphatase 66 units/L (35-129) 03/01/20 17:20 Lactate Dehydrogenase 202 units/L (91-180) H 03/01/20 17:20 C-Reactive Protein 1.00 mg/dL (0.00-1.30) 03/01/20 17:20 Total Protein 7.7 g/dL (6.3-8.2) 03/01/20 17:20 Albumin 4.2 g/dL (3.9-5) 03/01/20 17:20 Albumin/Globulin Ratio 1.2 % 03/01/20 17:20 Procalcitonin < 0.05 ng/mL (<0.15) 03/01/20 17:20 Coronavirus (PCR) Positive (Negative) A 03/13/20 Unknown Jarvis/IV: Voiding Method Toilet IV Catheter Type [Right Hand] INT / Saline Lock IV Catheter Type [Left Forearm INT / Saline Lock ] IV Catheter Type [Left Peripheral IV Antecubital] Active Medications - Current Medications Current Medications: Generic Name Dose Route Start Last Admin Trade Name Freq PRN Reason Stop Dose Admin Acetaminophen 650 mg 03/01/20 19:17 03/09/20 21:58 Acetaminophen 325 Mg Tab PO 650 mg Q4H PRN Administration Pain MILD(1-3)/Fever >100.5/RAYGOZA Albuterol 2.5 mg 03/01/20 19:17 03/01/20 21:38 Albuterol 2.5 Mg/3 Ml Nebu IH 2.5 mg Q4HRT PRN Administration Shortness Of Breath Aripiprazole 5 mg 03/11/20 10:00 03/14/20 09:33 Aripiprazole 5 Mg Tab PO 5 mg QDAY CORTEZ Administration Ascorbic Acid 1,000 mg 03/03/20 22:00 03/14/20 09:33 Ascorbic Acid 500 Mg Tab PO 1,000 mg BID CORTEZ Administration Cholecalciferol 5,000 unit 03/04/20 10:00 03/14/20 09:33 Cholecalciferol (Vit D3) 5,000 Unit Tab PO 5,000 unit DAILY CORTEZ Administration Famotidine 10 mg 03/06/20 22:00 03/14/20 09:33 Famotidine 20 Mg Tab PO 10 mg BID CORTEZ Administration Heparin Sodium (Porcine) 5,000 unit 03/01/20 22:00 03/14/20 09:33 Heparin 5,000 Unit/1 Ml Vial SUB-Q 5,000 unit Q12HR CORTEZ Administration Ondansetron HCl 4 mg 03/01/20 19:17 Ondansetron 4 Mg/2 Ml Inj IV Q8H PRN Nausea And Vomiting Sertraline HCl 25 mg 03/11/20 10:00 03/14/20 09:33 Sertraline 25 Mg Tab PO 25 mg QDAY CORTEZ Administration Sodium Chloride 10 ml 03/01/20 22:00 03/14/20 09:33 Sodium Chloride 0.9% 10 Ml Flush Syringe IV 10 ml BID CORTEZ Administration Sodium Chloride 10 ml 03/01/20 19:17 Sodium Chloride 0.9% 10 Ml Flush Syringe IV PRN PRN LINE FLUSH Trazodone HCl 50 mg 03/11/20 22:00 03/13/20 21:55 Trazodone 50 Mg Tab PO 50 mg QHS CORTEZ Administration Zinc Sulfate 220 mg 03/04/20 10:00 03/13/20 10:27 Zinc Sulfate 220 Mg Cap PO 220 mg QDAY CORTEZ Administration Nutrition/Malnutrition Assess - Dietary Evaluation Nutrition/Malnutrition Findings: Nutrition Notes Start: 03/07/20 14:55 Freq: Status: Active Protocol: Document 03/07/20 14:55 TENA (Rec: 03/07/20 14:59 TENA [email or web address]) Nutrition Notes Need for Assessment generated from: LOS Initial or Follow up Brief Note Current Diet Regular Height 5 ft 8 in Weight 138.5 kg [place] Body Weight (kg) 70.00 BMI 46.4 Weight Status Morbidly Obese Subjective/Other Information Pt screened for LOS. He has consumed 90% of meals since admission. Percent of energy/protein needs met: 100% energy 97% pro Burn Absent Trauma Absent Current % PO Good (75-100%) Minimum of two criteria No Is patient on ventilator? No Is Patient Ambulatory and/or Out of Bed Yes REE-([place]-St. Jeor-ambulatory/OOB) [ 3034.850 NUTR.[id number]] Kcal/Kg value to use for calculation 13 Approximate Energy Requirements Using 1801 kcal/Kg Calculation Used for Recommendations Kcal/kg Additional Notes Pro needs 0.8-1g/kg adjBW: 83- 104g/day Fluid needs 1ml/kcal Nutrition Intervention Revisit per MD consult or patient Sign Off request:
[2020-03-14] MEDS: ZINC SULFATE 220 MG CAP PO SCH (12:59)
[2020-03-14] MEDS: traZODone 50 MG TAB PO SCH (21:26)
--- NOTE | 2020-03-15 08:30 | Progress Note ---
Subjective - Reason for Consult Consult date: 03/15/20 Reason for consult: SI - Chief Complaint Chief complaint: During my interview, the patient was sitting up in bed. He is a/o x 3. The patient is smiling. He says he is going home today and states "I'm ready." The patient says "I feel so much better." He asked about his meds. Informed the patient that I wrote scripts for him to continue them on an outpatient basis and follow up with his regular psychiatrist. The patient denies hallucinations of any kind. He also denies SI/HI. He says he's slept well and his appetite has been fine. REVIEW OF SYSTEMS Constitutional: Negative for weight loss ENT: Negative for stridor Respiratory: Negative for cough or hemoptysis All other systems reviewed and are negative MENTAL STATUS EXAMINATION General Appearance and Behavior: dressed appropriately, calm and cooperative Cooperation: Participating/engaged Psychomotor Behavior: unremarkable and within normal limits Mood: "great" Affect and affective range: congruent with mood, smiles inappropriately Thought Process: Fluent/Logical Thought Content: Within reality, Speech: Normal volume, Regular rate and rhythm, Intellectual Functioning: Average Suicidal Ideation: Denies Homicidal Ideation: Denies Insight and Judgment: Limited insight and judgment, Memory: Limited Attention: Normal Orientation: Alert, oriented, Assessment and Plan (1) Bipolar 2 disorder, major depressive episode (F31.81) Current Visit: Yes Status: Acute Treatment Plan Continue current regimen. Scripts Trazodone 50mg po qhs Zoloft 25mg po daily Abilify 5mg po daily Risks, benefits and alternatives of medications discussed with the patient, princess doran answered and consent obtained from patient. PSYCHOTHERAPY: Supportive psychotherapy provided MEDICAL: Per primary team DELIRIUM PRECAUTIONS: Please re-orient patient frequently, keep lights on during the day, and minimize benzodiazepines and opiates as these medications could worsen patient's confusion. DIRECTOR BUSINESS INTEGRATION: Defer to primary DISPOSITION: Do not recommend acute inpatient psychiatric hospitalization at this time. Will sign off as the patient is at his baseline and will be discharged today. Thank you for the consult. Please contact with any questions and/or concerns. Case discussed with Dr. Hernandez who agrees with current disposition. Mental Status Exam - Vital signs Last Vital Signs Temp 98.7 F 03/15/20 06:16 Pulse 77 03/15/20 06:16 Resp 20 03/15/20 06:16 BP 117/54 03/15/20 06:16 Pulse Ox 92 03/15/20 06:16
[2020-03-15] MEDS: FAMOTIDINE 20 MG TAB PO SCH ×2 (09:22→22:02)
[2020-03-15] MEDS: ARIPiprazole 5 MG TAB PO SCH (09:22)
[2020-03-15] MEDS: ASCORBIC ACID 500 MG TAB PO SCH ×2 (09:22→22:02)
[2020-03-15] MEDS: CHOLECALCIFEROL (VIT D3) 5,000 UNIT TAB PO SCH (09:23)
[2020-03-15] MEDS: SERTRALINE 25 MG TAB PO SCH (09:23)
[2020-03-15] MEDS: ZINC SULFATE 220 MG CAP PO SCH (09:23)
[2020-03-15] MEDS: HEPARIN 5,000 UNIT/1 ML VIAL SUB-Q SCH ×2 (09:23→22:03)
--- NOTE | 2020-03-15 18:41 | Progress Note ---
Assessment and Plan Assessment and plan: COVID-19 test; positive-03/02/20 20, 03/13/2020 --Suicidal thoughts and ideation; psych cleared for DC Symptoms resolved Psych rescinded 1013, cleared for discharge to custodial No need for inpatient psych transfer Case management processing custodial placement -- Acute hypoxemic respiratory failure/POA Current Visit: Yes Status: Acute Plan to address problem: Symptoms resolved ,room air O2 sats more than 94% No need for home oxygen -- Pneumonia due to COVID-19 virus Current Visit: Yes Status: Acute Plan to address problem: IV steroids, IV remdesivir Inflammatory markers, oxygen Home oxygen evaluation, prone position. Anticoagulation per protocol Repeat Covid test positive No need for oxygen at this point -- Leukopenia resolved Current Visit: Yes Status: Acute Plan to address problem: Secondary to Covid resolved -- Transaminitis Current Visit: Yes Status: Acute Plan to address problem: Secondary to Covid, improved --Obesity; BMI 35 Current Visit: Yes Status: Acute Plan to address problem: patient needs weight reduction when medically stable --DVT prophylaxis Current Visit: Yes Status: Acute Plan to address problem: On Lovenox and GI prophylaxis Patient is medically stable for discharge, psych cleared Discussed with case management, possible discharge tomorrow Brief history and hospital course: 25 YO Male who is currently an inpatient at [facility] with Depression, Asthma, HLD, Developmental Delay presents to ED for evaluation. Patient reports "feeling 6" over the past 2 days. Patient states that he has experienced fever, dry cough, shortness of breath, body aches, malaise, nausea, multiple loose stools. Patient underwent a coronavirus test on yesterday and was found to be COVID-19 positive. Patient has experienced persistent symptoms over the same timeframe. EMS was notified and upon arrival the patient was found to be in distress and subsequently transported to [facility] for further care and evaluation of the aforementioned symptoms. The patient was seen and evaluated in the emerge ncy department. All lab and imaging studies reviewed. The patient was found to have a pulse oximetry of 87% with exertion which is consistent with acute hypoxemic respiratory failure. The patient underwent chest x-ray and was found to have pneumonia. The patient was admitted to medical floor and initiated on pneumonia protocol as well as coronavirus protocol. Infectious disease service consulted. Patient denies chills, chest pain, palpitation, skin rash or recent ill contacts. No prior admission for review. No medication listed at time of admission for reconciliation. 03/02/20:Doing well, On 3 liters [place] o2, Smith PCR positive 03/03: Continue oxygen therapy at this time. We will add some vitamins supplementation. A dose of Lasix today. Patient noted to have leukopenia we will continue to monitor closely. Remdesivir was started. Patient requesting f or his phone from [facility] and staff to help locate. 03/04: Continue supportive care, Discussed with family Mica Pritchett [phone], anticipate discharge in a day or two. Per family the patient has a hx of SI/HI and was at [facility] for the same thing. She reports that this is a monthly thing and has not had an attempt. Will obtain Mental health consult. 03/05: Patient clinically improving. Continue remdesivir and steroids. Discussed with nursing staff they will check room air oxygen today in preparation for discharge within 24 to 48 hours. Psych evaluation pending 03/06; home oxygen evaluation, possible discharge home tomorrow if stable. 03/07; patient is stable for discharge, case management checking with [facility] discharge planning 03/08; patient is initially discharged this morning, however the custodial is not accepting Covid positive patients Case management processing custodial placement placement Resting room air 6-minute walk room air O2 sats more than 92%, no indication for home oxygen 03/09/2020; suicidal thoughts and ideation, 1013 status, psych consulted, continue supportive care 03/10/2020; patient has suicidal thoughts and ideation, management per psych, 1013 status Patient is medically stable for discharge. 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 nurse, safety admin assistant at the bedside 03/13/2020; patient cleared by psych, 1013 rescinded Repeat Covid test positive today, pending placement, case management assisting with DC planning 03/14/2020; initially patient was supposed to be discharged today however due to transportation issues care home personnel have recommended discharge tomorrow first thing in the morning Patient feels better no suicidal thoughts or ideation, vital signs stable 03/15/2020; patient is medically stable for discharge, discussed with case management Possible discharge to custodial tomorrow History Interval history: I have seen and examined the patient at the bedside Patient's chart and medications reviewed Covid positive patient, strict isolation precautions and PPE protocols followed Patient feels better anxious to go home Vital signs noted Hospitalist Physical - Constitutional Vitals: Temp Pulse Resp BP Pulse Ox 98.2 F 102 H 22 109/74 93 03/15/20 11:27 03/15/20 11:27 03/15/20 11:27 03/15/20 11:27 03/15/20 11:27 General appearance: Present: no acute distress, well-nourished, obese - EENT Eyes: Present: PERRL, EOM intact - Neck Neck: Present: supple, normal ROM - Respiratory Respiratory effort: normal Respiratory: bilateral: diminished, negative: rales, rhonchi, wheezing - Cardiovascular Rhythm: regular Heart Sounds: Present: S1 & S2 - Extremities Extremities: no ischemia, No edema - Abdominal General gastrointestinal: soft, non-tender, non-distended, normal bowel sounds - Integumentary Integumentary: Present: clear, warm - Psychiatric Psychiatric: appropriate mood/affect, cooperative - Neurologic Neurologic: moves all extremities, other Results - Labs CBC & Chem 7: 03/04/20 06:01 03/04/20 06:01 Labs: Laboratory Last Values WBC 5.8 K/mm3 (4.5-11.0) 03/04/20 06:01 RBC 4.20 M/mm3 (3.65-5.03) 03/04/20 06:01 Hgb 10.9 gm/dl (11.8-15.2) L 03/04/20 06:01 Hct 33.2 % (35.5-45.6) L 03/04/20 06:01 MCV 79 fl (84-94) L 03/04/20 06:01 MCH 26 pg (28-32) L 03/04/20 06:01 MCHC 33 % (32-34) 03/04/20 06:01 RDW 16.4 % (13.2-15.2) H 03/04/20 06:01 Plt Count 274 K/mm3 (140-440) 03/04/20 06:01 Lymph % (Auto) 10.1 % (13.4-35.0) L 03/03/20 15:15 [place] % (Auto) 4.7 % (0.0-7.3) 03/03/20 15:15 Eos % (Auto) 0.0 % (0.0-4.3) 03/03/20 15:15 Baso % (Auto) 0.1 % (0.0-1.8) 03/03/20 15:15 Lymph # (Auto) 0.4 K/mm3 (1.2-5.4) L 03/03/20 15:15 [place] # (Auto) 0.2 K/mm3 (0.0-0.8) 03/03/20 15:15 Eos # (Auto) 0.0 K/mm3 (0.0-0.4) 03/03/20 15:15 Baso # (Auto) 0.0 K/mm3 (0.0-0.1) 03/03/20 15:15 Add Manual Diff Complete 03/02/20 05:31 Total Counted 100 03/02/20 05:31 Seg Neutrophils % 85.1 % (40.0-70.0) H 03/03/20 15:15 Seg Neuts % (Manual) 74.0 % (40.0-70.0) H 03/02/20 05:31 Lymphocytes % (Manual) 23.0 % (13.4-35.0) 03/02/20 05:31 Monocytes % (Manual) 3.0 % (0.0-7.3) 03/02/20 05:31 Nucleated RBC % Not Reportable 03/02/20 05:31 Seg Neutrophils # 3.6 K/mm3 (1.8-7.7) 03/03/20 15:15 Seg Neutrophils # Man 1.3 K/mm3 (1.8-7.7) L 03/02/20 05:31 Band Neutrophils # 0.0 K/mm3 03/02/20 05:31 Lymphocytes # (Manual) 0.4 K/mm3 (1.2-5.4) L 03/02/20 05:31 Abs React Lymphs (Man) 0.0 K/mm3 03/02/20 05:31 Monocytes # (Manual) 0.1 K/mm3 (0.0-0.8) 03/02/20 05:31 Eosinophils # (Manual) 0.0 K/mm3 (0.0-0.4) 03/02/20 05:31 Basophils # (Manual) 0.0 K/mm3 (0.0-0.1) 03/02/20 05:31 Metamyelocytes # 0.0 K/mm3 03/02/20 05:31 Myelocytes # 0.0 K/mm3 03/02/20 05:31 Promyelocytes # 0.0 K/mm3 03/02/20 05:31 Blast Cells # 0.0 K/mm3 03/02/20 05:31 WBC Morphology Not Reportable 03/02/20 05:31 Hypersegmented Neuts Not Reportable 03/02/20 05:31 Hyposegmented Neuts Not Reportable 03/02/20 05:31 Hypogranular Neuts Not Reportable 03/02/20 05:31 Smudge Cells Not Reportable 03/02/20 05:31 Toxic Granulation Not Reportable 03/02/20 05:31 Toxic Vacuolation Not Reportable 03/02/20 05:31 Dohle Bodies Not Reportable 03/02/20 05:31 Pelger-Huet Anomaly Not Reportable 03/02/20 05:31 Gerardo Rods Not Reportable 03/02/20 05:31 Platelet Estimate Consistent w auto 03/02/20 05:31 Clumped Platelets Not Reportable 03/02/20 05:31 Plt Clumps, EDTA Not Reportable 03/02/20 05:31 Large Platelets Not Reportable 03/02/20 05:31 Giant Platelets Not Reportable 03/02/20 05:31 Platelet Satelliting Not Reportable 03/02/20 05:31 Plt Morphology Comment Not Reportable 03/02/20 05:31 RBC Morphology Not Reportable 03/02/20 05:31 Dimorphic RBCs Not Reportable 03/02/20 05:31 Polychromasia Not Reportable 03/02/20 05:31 Hypochromasia 1+ 03/02/20 05:31 Poikilocytosis Not Reportable 03/02/20 05:31 Anisocytosis Not Reportable 03/02/20 05:31 Microcytosis Not Reportable 03/02/20 05:31 Macrocytosis Not Reportable 03/02/20 05:31 Spherocytes Not Reportable 03/02/20 05:31 Pappenheimer Bodies Not Reportable 03/02/20 05:31 Sickle Cells Not Reportable 03/02/20 05:31 Target Cells Not Reportable 03/02/20 05:31 Tear Drop Cells Not Reportable 03/02/20 05:31 Ovalocytes Few 03/02/20 05:31 Helmet Cells Not Reportable 03/02/20 05:31 [place] Bodies Not Reportable 03/02/20 05:31 [place] Rings Not Reportable 03/02/20 05:31 [place] Cells Not Reportable 03/02/20 05:31 Bite Cells Not Reportable 03/02/20 05:31 Crenated Cell Not Reportable 03/02/20 05:31 Elliptocytes Not Reportable 03/02/20 05:31 Acanthocytes (Spur) Not Reportable 03/02/20 05:31 Rouleaux Not Reportable 03/02/20 05:31 Hemoglobin C Crystals Not Reportable 03/02/20 05:31 Schistocytes Not Reportable 03/02/20 05:31 Malaria parasites Not Reportable 03/02/20 05:31 Julio Bodies Not Reportable 03/02/20 05:31 Hem Pathologist Commnt No 03/02/20 05:31 PT 12.2 Sec. (12.2-14.9) 03/01/20 17:20 INR 0.92 (0.87-1.13) 03/01/20 17:20 APTT 30.3 Sec. (24.2-36.6) 03/01/20 17:20 D-Dimer 236.88 ng/mlDDU (0-234) H 03/01/20 17:20 D-Dimer 274.02 ng/mlDDU (0-234) H 03/01/20 17:20 Sodium 144 mmol/L (137-145) 03/04/20 06:01 Potassium 3.9 mmol/L (3.6-5.0) 03/04/20 06:01 Chloride 107.5 mmol/L (98-107) H 03/04/20 06:01 Carbon Dioxide 29 mmol/L (22-30) 03/04/20 06:01 Anion Gap 11 mmol/L 03/04/20 06:01 BUN 12 mg/dL (9-20) 03/04/20 06:01 Creatinine 0.6 mg/dL (0.8-1.3) L 03/04/20 06:01 Estimated GFR > 60 ml/min 03/04/20 06:01 BUN/Creatinine Ratio 20 % 03/04/20 06:01 Glucose 133 mg/dL (75-100) H 03/04/20 06:01 Calcium 8.7 mg/dL (8.4-10.2) 03/04/20 06:01 Ferritin 42.8 ng/mL (30.0-300.0) 03/01/20 17:20 Total Bilirubin 0.20 mg/dL (0.1-1.2) 03/01/20 17:20 Direct Bilirubin < 0.2 mg/dL (0-0.2) 03/01/20 17:20 AST 47 units/L (5-40) H 03/01/20 17:20 ALT 57 units/L (7-56) H 03/01/20 17:20 Alkaline Phosphatase 66 units/L (35-129) 03/01/20 17:20 Lactate Dehydrogenase 202 units/L (91-180) H 03/01/20 17:20 C-Reactive Protein 1.00 mg/dL (0.00-1.30) 03/01/20 17:20 Total Protein 7.7 g/dL (6.3-8.2) 03/01/20 17:20 Albumin 4.2 g/dL (3.9-5) 03/01/20 17:20 Albumin/Globulin Ratio 1.2 % 03/01/20 17:20 Procalcitonin < 0.05 ng/mL (<0.15) 03/01/20 17:20 Coronavirus (PCR) Positive (Negative) A 03/13/20 Unknown Jarvis/IV: Voiding Method Toilet IV Catheter Type [Left Hand] INT / Saline Lock IV Catheter Type [Right Hand] INT / Saline Lock IV Catheter Type [Left Forearm INT / Saline Lock ] IV Catheter Type [Left Peripheral IV Antecubital] Active Medications - Current Medications Current Medications: Generic Name Dose Route Start Last Admin Trade Name Freq PRN Reason Stop Dose Admin Acetaminophen 650 mg 03/01/20 19:17 03/09/20 21:58 Acetaminophen 325 Mg Tab PO 650 mg Q4H PRN Administration Pain MILD(1-3)/Fever >100.5/RAYGOZA Albuterol 2.5 mg 03/01/20 19:17 03/01/20 21:38 Albuterol 2.5 Mg/3 Ml Nebu IH 2.5 mg Q4HRT PRN Administration Shortness Of Breath Aripiprazole 5 mg 03/11/20 10:00 03/15/20 09:22 Aripiprazole 5 Mg Tab PO 5 mg QDAY CORTEZ Administration Ascorbic Acid 1,000 mg 03/03/20 22:00 03/15/20 09:22 Ascorbic Acid 500 Mg Tab PO 1,000 mg BID CORTEZ Administration Cholecalciferol 5,000 unit 03/04/20 10:00 03/15/20 09:23 Cholecalciferol (Vit D3) 5,000 Unit Tab PO 5,000 unit DAILY CORTEZ Administration Famotidine 10 mg 03/06/20 22:00 03/15/20 09:22 Famotidine 20 Mg Tab PO 10 mg BID CORTEZ Administration Heparin Sodium (Porcine) 5,000 unit 03/01/20 22:00 03/15/20 09:23 Heparin 5,000 Unit/1 Ml Vial SUB-Q 5,000 unit Q12HR CORTEZ Administration Ondansetron HCl 4 mg 03/01/20 19:17 Ondansetron 4 Mg/2 Ml Inj IV Q8H PRN Nausea And Vomiting Sertraline HCl 25 mg 03/11/20 10:00 03/15/20 09:23 Sertraline 25 Mg Tab PO 25 mg QDAY CORTEZ Administration Sodium Chloride 10 ml 03/01/20 22:00 03/15/20 09:23 Sodium Chloride 0.9% 10 Ml Flush Syringe IV 10 ml BID CORTEZ Administration Sodium Chloride 10 ml 03/01/20 19:17 Sodium Chloride 0.9% 10 Ml Flush Syringe IV PRN PRN LINE FLUSH Trazodone HCl 50 mg 03/11/20 22:00 03/14/20 21:26 Trazodone 50 Mg Tab PO 50 mg QHS CORTEZ Administration Zinc Sulfate 220 mg 03/04/20 10:00 03/15/20 09:23 Zinc Sulfate 220 Mg Cap PO 220 mg QDAY CORTEZ Administration Nutrition/Malnutrition Assess - Dietary Evaluation Nutrition/Malnutrition Findings: Nutrition Notes Start: 03/07/20 14:55 Freq: Status: Active Protocol: Document 03/07/20 14:55 TENA (Rec: 03/07/20 14:59 SANIYAALL [id number]) Nutrition Notes Need for Assessment generated from: LOS Initial or Follow up Brief Note Current Diet Regular Height 5 ft 8 in Weight 138.5 kg [place] Body Weight (kg) 70.00 BMI 46.4 Weight Status Morbidly Obese Subjective/Other Information Pt screened for LOS. He has consumed 90% of meals since admission. Percent of energy/protein needs met: 100% energy 97% pro Burn Absent Trauma Absent Current % PO Good (75-100%) Minimum of two criteria No Is patient on ventilator? No Is Patient Ambulatory and/or Out of Bed Yes REE-(Whitman-St. Jeor-ambulatory/OOB) [ 3034.850 NUTR.[id number]] Kcal/Kg value to use for calculation 13 Approximate Energy Requirements Using 1801 kcal/Kg Calculation Used for Recommendations Kcal/kg Additional Notes Pro needs 0.8-1g/kg adjBW: 83- 104g/day Fluid needs 1ml/kcal Nutrition Intervention Revisit per MD consult or patient Sign Off request:
[2020-03-15] MEDS: traZODone 50 MG TAB PO SCH (22:02)
[2020-03-16 05:41] VITALS: BP 121/55
[2020-03-16] MEDS: ZINC SULFATE 220 MG CAP PO SCH (09:24)
[2020-03-16] MEDS: FAMOTIDINE 20 MG TAB PO SCH (09:24)
[2020-03-16] MEDS: ARIPiprazole 5 MG TAB PO SCH (09:24)
[2020-03-16] MEDS: CHOLECALCIFEROL (VIT D3) 5,000 UNIT TAB PO SCH (09:24)
[2020-03-16] MEDS: ASCORBIC ACID 500 MG TAB PO SCH (09:25)
[2020-03-16] MEDS: SERTRALINE 25 MG TAB PO SCH (09:25)
[2020-03-16] MEDS: HEPARIN 5,000 UNIT/1 ML VIAL SUB-Q SCH (09:26)
== END 2020-03-16 10:10 | disposition home or self-care (01) | DRG 177 ==
LOC: ED 13:05 → 3A 19:18
PROVIDERS: ADMIT Internal Medicine; ATTEND Internal Medicine
PROC: XW033E5 Introduction of Remdesivir Anti-infective into Peripheral Vein, Percutaneous Approach, New Technology Group 5 (ICD-10-PCS; principal; 2020-03-03)
DX: U07.1 COVID-19 (principal); J96.01 Acute respiratory failure with hypoxia; J12.82 Pneumonia due to coronavirus disease 2019; J45.901 Unspecified asthma with (acute) exacerbation; R45.851 Suicidal ideations; F32.9 Major depressive disorder, single episode, unspecified; E78.5 Hyperlipidemia, unspecified; E66.9 Obesity, unspecified; R74.01 Elevation of levels of liver transaminase levels; Z91.040 Latex allergy status; Z88.8 Allergy status to other drugs, medicaments and biological substances; Z91.018 Allergy to other foods; Z79.899 Other long term (current) drug therapy; Z68.35 Body mass index [BMI] 35.0-35.9, adult
CPT/HCPCS: 36415; 71045; 80048; 80076; 82728; 82947; 83615; 84145; 85007; 85025; 85027; 85379; 85610; 85730; 86140; 94640; 94760; 96374; G0378; J0456; J1644; J2920; J7050; J8540; U0003

== ENCOUNTER 2020-05-11 17:22 | Emergency (ER) | payer MEDICARE ==
--- NOTE | 2020-05-11 17:32 | Event Note ---
ED Screening Note ED Screening Note: BIPOLAR AND SCHIZO STATES NOT TAKING MEDS FROM PERSONAL HALFWAY CO ABD PAIN AND VOICES TELL HIM TO STAB HIMSELF POOR INFORMANT DOES NOT KNOW HOME MEDS This initial assessment/diagnostic orders/clinical plan/treatment(s) is/are subject to change based on patients health status, clinical progression and re- assessment by fellow clinical providers in the ED. Further treatment and workup at subsequent clinical providers discretion. Patient/guardian urged not to elope from the ED as their condition may be serious if not clinically assessed and managed. Initial orders include: 1013 PSYCH EVAL
[2020-05-11 17:56] LABS: Basophils # (Auto) 0.1 K/mm3 (0.0-0.1); Basophils % (Auto) 1.1 % (0.0-1.8); Eosinophils % (Auto) 0.7 % (0.0-4.3); Hematocrit 31.7 % (35.5-45.6); Hemoglobin 10.4 gm/dl (11.8-15.2); Lymphocytes # (Auto) 1.6 K/mm3 (1.2-5.4); Lymphocytes % (Auto) 32.8 % (13.4-35.0); Mean Corpuscular HGB Conc 33 % (32-34); Mean Corpuscular Volume 79 fl (84-94); Monocytes # (Auto) 0.4 K/mm3 (0.0-0.8); Monocytes % (Auto) 7.4 % (0.0-7.3); Platelet Count 364 K/mm3 (140-440); Red Blood Count 4.03 M/mm3 (3.65-5.03); Red Cell Distribution Width 16.8 % (13.2-15.2)
[2020-05-11 18:19] LABS: Alanine Aminotransferase 26 units/L (7-56); Albumin 4.2 g/dL (3.9-5); BUN/Creatinine Ratio 10; Blood Urea Nitrogen 8 mg/dL (9-20); Calcium 9.5 mg/dL (8.4-10.2); Hemolysis Index 2
[2020-05-11 20:14] LABS: Amphetamine Screen,Urine Negative; Benzodiazepines Screen,Urine Negative; Cannabinoid Screen,Urine Negative; Cocaine Screen,Urine Negative; Methadone Screen,Urine Negative; Opiate Screen,Urine Negative
[2020-05-11 20:42] LABS: Bilirubin,Urine NEG (Negative); Blood,Urine NEG (Negative); Color,Urine Yellow (Yellow); Mucus,Urine FEW /HPF; RBC,Urine < 1.0 /HPF (0.0-6.0); WBC,Urine < 1.0 /HPF (0.0-6.0)
--- NOTE | 2020-05-11 20:53 | Emergency Department Report ---
ED Psych HPI - General Chief Complaint: Psych Stated Complaint: MENTAL HEALTH Time Seen by Provider: 05/11/20 17:30 Source: patient Mode of arrival: Ambulatory - History of Present Illness Initial Comments: 25-year-old male with history of depression and bipolar disorder presents to ED with suicidal ideations. Patient states he wants to kill himself because he currently lives in a [facility] and was supposed to be going to a correction in [facility], however this did not happen. Patient states he has no plan for suicide. Triage note states patient is reporting auditory hallucinations telling him to stab himself in the abdomen. However, patient denies this to me. MD Complaint: suicidal ideation -: unknown Improves With: none Worsens With: none Associated Symptoms: denies other symptoms Treatments Prior to Arrival: none If Self Harm: admits thoughts of - Related Data Previous Rx's Medication Instructions Recorded Last Taken Type ARIPiprazole [Abilify TAB] 5 mg PO DAILY #30 tab 03/13/20 Unknown Rx Sertraline [Zoloft] 25 mg PO QDAY #30 tab 03/13/20 Unknown Rx traZODone [Desyrel] 50 mg PO QHS #30 tab 03/13/20 Unknown Rx Allergies Allergy/AdvReac Type Severity Reaction Status Date / Time latex Allergy Unknown Verified 05/11/20 17:23 ceftriaxone [From Rocephin] AdvReac Unknown Verified 05/11/20 17:23 soy AdvReac Unknown Verified 05/11/20 17:23 ED Review of Systems ROS: Stated complaint: MENTAL HEALTH Other details as noted in HPI Comment: All other systems reviewed and negative Gastrointestinal: abdominal pain Psychiatric: auditory hallucinations, suicidal thoughts ED Past Medical Hx - Past Medical History Hx Diabetes: No Hx Psychiatric Treatment: Yes (BIPOLAR/SCHIZOPHENIA) - Social History Smoking Status: Never Smoker Substance Use Type: None - Medications Home Medications: Home Medications Medication Instructions Recorded Confirmed Last Taken Type ARIPiprazole [Abilify TAB] 5 mg PO DAILY #30 tab 03/13/20 Unknown Rx Sertraline [Zoloft] 25 mg PO QDAY #30 tab 03/13/20 Unknown Rx traZODone [Desyrel] 50 mg PO QHS #30 tab 03/13/20 Unknown Rx ED Physical Exam - General Limitations: No Limitations General appearance: alert, in no apparent distress - Head Head exam: Present: atraumatic, normocephalic - Eye Eye exam: Present: normal appearance, EOMI - ENT ENT exam: Present: mucous membranes moist - Neck Neck exam: Present: normal inspection - Respiratory Respiratory exam: Present: normal lung sounds bilaterally. Absent: respiratory distress - Cardiovascular Cardiovascular Exam: Present: regular rate, normal rhythm - GI/Abdominal GI/Abdominal exam: Present: soft. Absent: distended, tenderness - Extremities Exam Extremities exam: Present: normal inspection - Neurological Exam Neurological exam: Present: alert, oriented X3 - Psychiatric Psychiatric exam: Present: normal affect, normal mood - Skin Skin exam: Present: warm, dry, intact, normal color ED Course Vital Signs 05/11/20 05/12/20 05/12/20 17:29 01:00 05:00 Temperature 99.0 F Pulse Rate 90 59 L 53 L Respiratory 18 16 Rate Blood Pressure 129/75 Blood Pressure 112/63 118/56 [Left] O2 Sat by Pulse 95 99 Oximetry 05/14/20 05/15/20 05/15/20 20:00 07:00 07:20 Temperature 97.6 F 97.6 F Pulse Rate 67 80 Respiratory 16 18 18 Rate Blood Pressure Blood Pressure 121/67 122/71 [Left] O2 Sat by Pulse 96 96 Oximetry 05/15/20 05/15/20 14:44 19:20 Temperature 98 F Pulse Rate 89 69 Respiratory 18 18 Rate Blood Pressure Blood Pressure 128/88 122/68 [Left] O2 Sat by Pulse 96 98 Oximetry - Reevaluation(s) Reevaluation #1: 05/11/20 23:20 Pt seen and evaluated by [facility]. Does not recommend inpatient treatment at this time. Awaiting case management for placement. ED Medical Decision Making - Lab Data Result diagrams: 05/11/20 17:41 05/11/20 17:41 Critical care attestation.: If time is entered above; I have spent that time in minutes in the direct care of this critically ill patient, excluding procedure time. ED Disposition Clinical Impression: Bipolar disorder, Cognitive developmental delay Disposition: DC-01 TO HOME OR SELFCARE Is pt being admited?: No Condition: Stable Instructions: Managing Bipolar Disorder Referrals: ZACHERY MACHADO MD [Primary Care Provider] - 3-5 Days
[2020-05-17 11:43] VITALS: BP 120/73
== END 2020-05-17 14:46 | disposition home or self-care (01) ==
LOC: ED 17:22
DX: F31.9 Bipolar disorder, unspecified (principal); F81.9 Developmental disorder of scholastic skills, unspecified; Z79.899 Other long term (current) drug therapy; Z91.040 Latex allergy status; Z88.8 Allergy status to other drugs, medicaments and biological substances
CPT/HCPCS: 36415; 80053; 80307; 80320; 81001; 84443; 85025; G0480

== ENCOUNTER 2020-07-02 13:40 | Emergency (ER) | payer MEDICARE ==
--- NOTE | 2020-07-02 14:52 | Emergency Department Report ---
ED Psych HPI - General Chief Complaint: Psych Stated Complaint: SUICIDAL Time Seen by Provider: 07/02/20 13:41 Source: EMS Mode of arrival: Ambulatory - History of Present Illness Initial Comments: Chief complaint: "Yvette is getting to me." HPI: This is a 25-year-old male with history of cognitive impairment, bipolar disorder who presents via EMS for suicidal ideation. Patient denies plan or thoughts of self-harm. He informed me and treatment nurse that [facility] super visor told him to find another place to stay. He denies any physical points. Denies suicidal homicidal ideation. Denies hallucinations. MD Complaint: other (Patient informed EMS that he was suicidal. He currently denies suicidality.) -: This afternoon History of same: Yes Quality: resolved prior to arrival Improves With: none Worsens With: none Context: other (Patient needs a place to stay) Associated Symptoms: denies other symptoms Treatments Prior to Arrival: other (EMS transportation to the emergency department) - Related Data Previous Rx's Medication Instructions Recorded Last Taken Type ARIPiprazole [Abilify TAB] 5 mg PO DAILY #30 tab 03/13/20 1 Day Ago Rx ~07/01/20 Sertraline [Zoloft] 25 mg PO QDAY #30 tab 03/13/20 1 Day Ago Rx ~07/01/20 traZODone [Desyrel] 50 mg PO QHS #30 tab 03/13/20 1 Day Ago Rx ~07/01/20 Allergies Allergy/AdvReac Type Severity Reaction Status Date / Time latex Allergy Unknown Verified 05/11/20 17:23 ceftriaxone [From Rocephin] AdvReac Unknown Verified 05/11/20 17:23 soy AdvReac Unknown Verified 05/11/20 17:23 ED Review of Systems ROS: Stated complaint: SUICIDAL Other details as noted in HPI Comment: All other systems reviewed and negative Constitutional: denies: fever, malaise Respiratory: denies: cough, shortness of breath Psychiatric: denies: anxiety, auditory hallucinations, visual hallucinations, homicidal thoughts, suicidal thoughts ED Past Medical Hx - Past Medical History Previous Medical History?: Yes Hx Diabetes: No Hx Psychiatric Treatment: Yes (BIPOLAR/SCHIZOPHENIA) - Social History Smoking Status: Never Smoker Substance Use Type: None - Medications Home Medications: Home Medications Medication Instructions Recorded Confirmed Last Taken Type ARIPiprazole [Abilify TAB] 5 mg PO DAILY #30 tab 03/13/20 07/02/20 1 Day Ago Rx ~07/01/20 Sertraline [Zoloft] 25 mg PO QDAY #30 tab 03/13/20 07/02/20 1 Day Ago Rx ~07/01/20 traZODone [Desyrel] 50 mg PO QHS #30 tab 03/13/20 07/02/20 1 Day Ago Rx ~07/01/20 ED Physical Exam - General Limitations: No Limitations General appearance: alert, in no apparent distress, other (Smiling cooperative eating food pleasant) - Head Head exam: Present: atraumatic, normocephalic - Eye Eye exam: Present: normal appearance - ENT ENT exam: Present: mucous membranes moist - Neck Neck exam: Present: normal inspection, full ROM - Respiratory Respiratory exam: Present: normal lung sounds bilaterally. Absent: respiratory distress, wheezes, rales, rhonchi, stridor - Cardiovascular Cardiovascular Exam: Present: regular rate, normal rhythm, normal heart sounds. Absent: systolic murmur, diastolic murmur, rubs, gallop - GI/Abdominal GI/Abdominal exam: Present: soft, normal bowel sounds. Absent: distended, tenderness, guarding, rebound - Rectal Rectal exam: Present: deferred - Extremities Exam Extremities exam: Present: normal inspection - Back Exam Back exam: Present: normal inspection - Neurological Exam Neurological exam: Present: alert, oriented X3 - Psychiatric Psychiatric exam: Present: normal affect, normal mood. Absent: depressed, agitated, anxious, flat affect, manic, homicidal ideation, suicidal ideation - Skin Skin exam: Present: warm, dry, intact, normal color. Absent: rash ED Course Vital Signs 07/02/20 14:11 Temperature 98.0 F Pulse Rate 80 Respiratory 20 Rate Blood Pressure 148/68 O2 Sat by Pulse 97 Oximetry ED Medical Decision Making - Lab Data Result diagrams: 07/02/20 14:49 07/02/20 14:49 - Medical Decision Making Mr. Patterson a 25-year-old male with history of bipolar disorder and cognitive impairment who presents from [facility]. [facility] that he will need another place to stay. He denies suicidality. He denies homicidal ideation or hallucinations. He is cooperative. He is calm. He is actually happy and pleasant. He is directable. Mr. Ricketts is medically clear for residential placement. He does not have an acute medical or psychiatric condition which needs stabilization. I have reviewed labs. CBC chemistry serum toxicology all within normal limits. Urinalysis without evidence of infection. Urine drug screen negative. Critical care attestation.: If time is entered above; I have spent that time in minutes in the direct care of this critically ill patient, excluding procedure time. ED Disposition Clinical Impression: Case management patient, Bipolar disorder, Cognitive impairment Disposition: [id number]/TX-70 ANOTHER TYPE HLTHCARE Is pt being admited?: No Does the pt Need Aspirin: No Condition: Stable
[2020-07-02 15:41] LABS: Basophils # (Auto) 0.1 K/mm3 (0.0-0.1); Basophils % (Auto) 1.2 % (0.0-1.8); Eosinophils # (Auto) 0.1 K/mm3 (0.0-0.4); Eosinophils % (Auto) 2.1 % (0.0-4.3); Hematocrit 36.7 % (35.5-45.6); Hemoglobin 11.7 gm/dl (11.8-15.2); Lymphocytes # (Auto) 1.4 K/mm3 (1.2-5.4); Lymphocytes % (Auto) 24.5 % (13.4-35.0); Mean Corpuscular HGB Conc 32 % (32-34); Mean Corpuscular Volume 77 fl (84-94); Monocytes # (Auto) 0.3 K/mm3 (0.0-0.8); Monocytes % (Auto) 5.1 % (0.0-7.3); Platelet Count 375 K/mm3 (140-440); Red Blood Count 4.76 M/mm3 (3.65-5.03)
[2020-07-02 16:01] LABS: Alanine Aminotransferase 29 units/L (7-56); Albumin 4.7 g/dL (3.9-5); Blood Urea Nitrogen 10 mg/dL (9-20); Calcium 9.3 mg/dL (8.4-10.2); Hemolysis Index 0
[2020-07-02 16:25] LABS: BUN/Creatinine Ratio 14
[2020-07-02 17:29] LABS: Bilirubin,Urine NEG (Negative); Blood,Urine NEG (Negative); Color,Urine Yellow (Yellow); Mucus,Urine 2+ /HPF; Protein,Urine <15 mg/dL mg/dL (Negative); Urobilinogen,Urine < 2.0 mg/dL (<2.0)
[2020-07-02 17:37] LABS: Amphetamine Screen,Urine Negative; Benzodiazepines Screen,Urine Negative; Cannabinoid Screen,Urine Negative; Cocaine Screen,Urine Negative; Methadone Screen,Urine Negative; Opiate Screen,Urine Negative
[2020-07-02] MEDS: traZODone 50 MG TAB PO SCH (22:00)
--- NOTE | 2020-07-03 10:36 | Emergency Department Report ---
Blank Doc - Documentation Documentation: No new events No new complaints Awaiting placement
[2020-07-03] MEDS: ARIPiprazole 5 MG TAB PO SCH (11:00)
[2020-07-03] MEDS: SERTRALINE 25 MG TAB PO SCH (11:00)
[2020-07-03] MEDS: traZODone 50 MG TAB PO SCH ×2 (23:04→23:10)
[2020-07-04] MEDS: SERTRALINE 25 MG TAB PO SCH (11:07)
[2020-07-04] MEDS: ARIPiprazole 5 MG TAB PO SCH (11:07)
--- NOTE | 2020-07-04 11:47 | Event Note ---
Date: 07/04/20 S- "I'm doing pretty good." O- vital signs stable; patient cooperative, conversational A- COVID-19 (also tested positive for COVID-19 on 03/02/20 and 03/13/20), asthma, developmental delay, depression, bipolar disorder P-cleared by psych on 07/02/2020; awaiting placement by case management
[2020-07-04] MEDS: traZODone 50 MG TAB PO SCH (21:52)
[2020-07-05] MEDS ORDERED: INSULIN LISPRO 100 UNIT/ML SUB-Q ONE (09:19)
[2020-07-05] MEDS: ARIPiprazole 5 MG TAB PO SCH (10:06)
[2020-07-05] MEDS: SERTRALINE 25 MG TAB PO SCH (10:07)
--- NOTE | 2020-07-05 11:43 | Event Note ---
Date: 07/05/20 S- no complaints O- vital signs stable; patient cooperative, conversational A- COVID-19 (also tested positive for COVID-19 on 03/02/20 and 03/13/20), asthma, developmental delay, depression, bipolar disorder P-Per social work note, awaiting [id number] form to be signed by Dr. Hernandez to proceed with assigning payee for patient SSI benefits. There are currently 3 personal care homes that may be willing to accept the patient.
[2020-07-05] MEDS: traZODone 50 MG TAB PO SCH (22:00)
[2020-07-06 08:44] VITALS: BP 103/68
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
[2020-07-06] MEDS: SERTRALINE 25 MG TAB PO SCH (11:00)
[2020-07-06] MEDS: ARIPiprazole 5 MG TAB PO SCH (11:00)
--- NOTE | 2020-07-06 12:24 | Event Note ---
Date: 07/06/20 S- no complaints O- vital signs stable; patient comfortable and cooperative A- COVID-19 (also tested positive for COVID-19 on 03/02/20 and 03/13/20), asthma, developmental delay, depression, bipolar disorder P- Pt seen and evaluated by Psych. Recommends continuing current management. Still awaiting placement by case mgmt.
== END 2020-07-06 14:00 | disposition other institution (70) ==
LOC: ED 13:40 → EEVIPCON 13:40 → ED 07-06 14:00
DX: F31.9 Bipolar disorder, unspecified (principal); G31.84 Mild cognitive impairment of uncertain or unknown etiology; Z20.822 Contact with and (suspected) exposure to COVID-19; F20.9 Schizophrenia, unspecified; Z79.899 Other long term (current) drug therapy; Z88.8 Allergy status to other drugs, medicaments and biological substances
CPT/HCPCS: 36415; 80053; 80307; 81001; 85025; 99285; U0003; 80320; G0480; J1815

== ENCOUNTER 2021-09-29 00:07 | Emergency (ER) | payer MEDICARE ==
--- NOTE | 2021-09-29 03:06 | Emergency Department Report ---
ED Psych HPI - General Chief Complaint: Psych Stated Complaint: AUDITORY HALLUCINATIONS Time Seen by Provider: 09/29/21 03:01 Source: patient, EMS Mode of arrival: Stretcher - History of Present Illness Initial Comments: 26-year-old male with history of bipolar and schizophrenia who presents with history of hallucination that is telling him to go and kill somebody. When has specifically he could not give a specific name or person in question. Patient denies any suicidal ideation. He however mentioned that he is out of his bipolar medication. No other modifying or associated factors reported. MD Complaint: other (Auditory hallucination with homicidal thought) - Related Data Previous Rx's Medication Instructions Recorded Last Taken Type ARIPiprazole [Abilify TAB] 5 mg PO DAILY #30 tab 09/29/21 Unknown Rx Sertraline [Zoloft] 25 mg PO QDAY #30 tab 09/29/21 Unknown Rx traZODone [Desyrel] 50 mg PO QHS #30 tab 09/29/21 Unknown Rx Allergies Allergy/AdvReac Type Severity Reaction Status Date / Time latex Allergy Unknown Verified 05/11/20 17:23 ceftriaxone [From Rocephin] AdvReac Unknown Verified 05/11/20 17:23 soy AdvReac Unknown Verified 05/11/20 17:23 ED Review of Systems ROS: Stated complaint: AUDITORY HALLUCINATIONS Other details as noted in HPI Comment: All other systems reviewed and negative Psychiatric: auditory hallucinations, homicidal thoughts ED Past Medical Hx - Past Medical History Previous Medical History?: Yes Hx Diabetes: No Hx Psychiatric Treatment: Yes (BIPOLAR/SCHIZOPHENIA) - Surgical History Past Surgical History?: No - Social History Smoking Status: Never Smoker Substance Use Type: None - Medications Home Medications: Home Medications Medication Instructions Recorded Confirmed Last Taken Type ARIPiprazole [Abilify TAB] 5 mg PO DAILY #30 tab 09/29/21 Unknown Rx Sertraline [Zoloft] 25 mg PO QDAY #30 tab 09/29/21 Unknown Rx traZODone [Desyrel] 50 mg PO QHS #30 tab 09/29/21 Unknown Rx ED Physical Exam - General Limitations: No Limitations General appearance: alert, in no apparent distress - Head Head exam: Present: normal inspection - Eye Eye exam: Present: normal appearance Pupils: Present: normal accommodation - ENT ENT exam: Present: normal exam, normal orophraynx, mucous membranes dry - Respiratory Respiratory exam: Present: normal lung sounds bilaterally. Absent: respiratory distress, accessory muscle use - Cardiovascular Cardiovascular Exam: Present: regular rate, normal rhythm, normal heart sounds - GI/Abdominal GI/Abdominal exam: Present: soft, normal bowel sounds. Absent: distended, tenderness - Extremities Exam Extremities exam: Absent: pedal edema - Back Exam Back exam: Absent: tenderness - Neurological Exam Neurological exam: Present: alert, oriented X3 - Psychiatric Psychiatric exam: Present: normal affect, normal mood - Skin Skin exam: Present: warm, normal color ED Course Vital Signs 09/29/21 09/29/21 09/29/21 00:07 06:12 06:13 Temperature 98 F Pulse Rate 92 H Respiratory 18 Rate Blood Pressure 134/78 [Left] O2 Sat by Pulse 99 98 98 Oximetry 09/29/21 09/29/21 09/29/21 08:54 14:23 20:23 Temperature 98.5 F Pulse Rate 100 H 81 Respiratory 18 18 Rate Blood Pressure 158/93 118/54 [Left] O2 Sat by Pulse 98 98 96 Oximetry 09/30/21 09/30/21 09/30/21 02:55 06:00 09:03 Temperature 97.3 F L 97.3 F L Pulse Rate 63 63 Respiratory 16 16 Rate Blood Pressure 121/55 121/55 [Left] O2 Sat by Pulse 95 95 95 Oximetry 09/30/21 09:31 Temperature 98.8 F Pulse Rate 97 H Respiratory 18 Rate Blood Pressure 125/79 [Left] O2 Sat by Pulse 100 Oximetry - Reevaluation(s) Reevaluation #1: 09/30/21 21:44 Patient seen and evaluated and cleared medically pending psychiatric evaluation in the morning. ED Medical Decision Making - Lab Data Result diagrams: 09/29/21 03:35 09/29/21 03:35 - Medical Decision Making Here with auditory hallucination associated with homicidal thoughts--we will go ahead and order routine psychiatric work-up and consult with psychiatric for further evaluation and treatment Critical care attestation.: If time is entered above; I have spent that time in minutes in the direct care of this critically ill patient, excluding procedure time. ED Disposition Clinical Impression: Auditory hallucinations, Homicidal thoughts Disposition: 30 STILL A PATIENT Is pt being admited?: No Does the pt Need Aspirin: No Condition: Stable Additional Instructions: OUTPATIENT MENTAL HEALTH RESOURCES [facility], [facility] Zulma Paredes MD: [address] [place] [address] [place] [address] [facility]: [facility] [address] [place] [address] [place] [address] [phone] [facility]: [facility] Healthcare: [address] [facility] [address] [facility] [place] [address] [facility] [address] [facility]: Trey Guevara MD: [address] [facility] [address] [facility] [address] [facility]: [address] [place] [address] [phone] [place] CRISIS AND ACCESS LINE: Professional and Agency Contacts To help Resolve Crises (30/09) [place] Crisis Line: Suicide Prevention Line: Crisis Text Line: Text START to 464566 Emergency: 911 Outpatient COMMUNITY Behavioral Health Resources: [place]: [facility] [address] [place], [place] [address] [facility] [address] [place] [address] Friday thru Friday - 8am - 5pm Call to schedule an assessment for mental health and substance abuse programs [facility] Address: [address] [place], [place] [address]Friday thru Friday- 7am-2pm [facility] Address: [address] [place], [place] [address]Friday thrfriday: 8:30AM-5PM Prescriptions: traZODone [Desyrel] 50 mg PO QHS #30 tab ARIPiprazole [Abilify TAB] 5 mg PO DAILY #30 tab Sertraline [Zoloft] 25 mg PO QDAY #30 tab Referrals: PRIMARY CARE, [Primary Care Provider] - 3-5 Days
[2021-09-29 04:11] LABS: Basophils % (Auto) 0.6 % (0.0-1.8); Eosinophils % (Auto) 0.3 % (0.0-4.3); Hematocrit 30.5 % (35.5-45.6); Hemoglobin 9.9 gm/dl (11.8-15.2); Lymphocytes # (Auto) 1.7 K/mm3 (1.2-5.4); Mean Corpuscular HGB Conc 32 % (32-34); Mean Corpuscular Volume 75 fl (84-94); Monocytes # (Auto) 0.4 K/mm3 (0.0-0.8); Monocytes % (Auto) 5.9 % (0.0-7.3); Platelet Count 375 K/mm3 (140-440); Red Blood Count 4.06 M/mm3 (3.65-5.03); Red Cell Distribution Width 16.3 % (13.2-15.2)
[2021-09-29 04:21] LABS: Alanine Aminotransferase 24 units/L (7-56); Blood Urea Nitrogen 9 mg/dL (9-20); Calcium 9.2 mg/dL (8.4-10.2); Hemolysis Index 0
[2021-09-29 04:22] LABS: BUN/Creatinine Ratio 15
[2021-09-29 04:35] LABS: Free T4 (Free Thyroxine) 1.07 ng/dL (0.76-1.46)
[2021-09-29 09:05] LABS: Amphetamine Screen,Urine Negative; Benzodiazepines Screen,Urine Negative; Cannabinoid Screen,Urine Negative; Cocaine Screen,Urine Negative; Methadone Screen,Urine Negative; Opiate Screen,Urine Negative
[2021-09-29 10:28] LABS: Bilirubin,Urine NEG (Negative); Blood,Urine NEG (Negative); Color,Urine Yellow (Yellow); Protein,Urine <15 mg/dL mg/dL (Negative); Urobilinogen,Urine < 2.0 mg/dL (<2.0)
[2021-09-29 10:30] LABS: Mucus,Urine 2+ /HPF
--- NOTE | 2021-09-29 12:05 | Event Note ---
Date: 09/29/21 S: No events reported overnight O: Vital Signs - 8 hr 09/29/21 09/29/21 09/29/21 06:12 06:13 08:54 Pulse Rate 100 H Respiratory 18 Rate Blood Pressure 158/93 [Left] O2 Sat by Pulse 98 98 98 Oximetry A: Homicidal ideation/auditory hallucinations P: Awaiting psych eval
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
[2021-09-30 09:33] VITALS: BP 125/79
== END 2021-09-30 09:33 | disposition still patient (30) ==
LOC: ED 00:07
DX: R44.0 Auditory hallucinations (principal); Z20.822 Contact with and (suspected) exposure to COVID-19; R45.851 Suicidal ideations; F31.9 Bipolar disorder, unspecified
CPT/HCPCS: 36415; 80053; 80307; 81001; 84439; 84443; 85025; 99284; U0003; 80320; G0480

== ENCOUNTER → 2021-12-06 | Emergency (ER) | payer MEDICARE ==
[~2021-12-06] MED LIST: HALOPERIDOL LACTATE 5 MG/1 ML INJ IM PRN; LORazepam 2 MG/ML VIAL IM PRN
[2021-12-06 22:12] LABS: Basophils % (Auto) 0.8 % (0.0-1.8); Eosinophils # (Auto) 0.2 K/mm3 (0.0-0.4); Eosinophils % (Auto) 3.4 % (0.0-4.3); Hematocrit 32.9 % (35.5-45.6); Hemoglobin 10.2 gm/dl (11.8-15.2); Lymphocytes # (Auto) 1.8 K/mm3 (1.2-5.4); Lymphocytes % (Auto) 28.6 % (13.4-35.0); Mean Corpuscular HGB Conc 31 % (32-34); Mean Corpuscular Volume 72 fl (84-94); Monocytes # (Auto) 0.4 K/mm3 (0.0-0.8); Monocytes % (Auto) 6.9 % (0.0-7.3); Platelet Count 373 K/mm3 (140-440); Red Blood Count 4.57 M/mm3 (3.65-5.03); Red Cell Distribution Width 16.8 % (13.2-15.2)
[2021-12-06 22:24] LABS: BUN/Creatinine Ratio 9; Blood Urea Nitrogen 6 mg/dL (9-20); Calcium 9.9 mg/dL (8.4-10.2); Hemolysis Index 2
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
[2021-12-07 08:37] VITALS: BP 139/82
[2021-12-07 09:45] LABS: Amphetamine Screen,Urine Negative; Benzodiazepines Screen,Urine Negative; Cannabinoid Screen,Urine Negative; Cocaine Screen,Urine Negative; Methadone Screen,Urine Negative; Opiate Screen,Urine Negative
[2021-12-07 09:47] LABS: Bilirubin,Urine NEG (Negative); Blood,Urine NEG (Negative); Color,Urine Yellow (Yellow); Mucus,Urine FEW /HPF; Protein,Urine <15 mg/dL mg/dL (Negative); RBC,Urine < 1.0 /HPF (0.0-6.0); Urobilinogen,Urine < 2 mg/dL (<2.0)
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
--- NOTE | 2021-12-07 20:09 | Emergency Department Report ---
Blank Doc - Documentation Documentation: 26-year-old male who was initially 1013 for suicidal ideation. Patient was seen by mental health provider and deemed not suicidal with recommendation to discharge to continue current outpatient medications.
== END | disposition home or self-care (01) ==
LOC: ED 19:28
DX: R45.851 Suicidal ideations (principal); Z13.30 Encounter for screening examination for mental health and behavioral disorders, unspecified; Z20.822 Contact with and (suspected) exposure to COVID-19; J45.909 Unspecified asthma, uncomplicated; F31.9 Bipolar disorder, unspecified
CPT/HCPCS: 36415; 80048; 80307; 80320; 81001; 85025; 99284; G0480; U0003